=== PATIENT | female | born 1955 | race Caucasian/White ===

== ENCOUNTER 2017-06-07 13:36 | Observation (INO) | payer OTHER ==
[2017-06-07] MEDS ORDERED: Sodium Chloride 0.9% 1000 ML 1,000 ML IV STA (13:43)
[2017-06-07] MEDS ORDERED: Sodium Chloride 0.9% 1000 ML 1,000 ML ONE ×2 (13:46→14:04)
--- NOTE | 2017-06-07 13:51 | ERPHSYRPT ---
- History of Present Illness Time Seen by Provider: 06/07/17 13:44 Source: patient, EMS Exam Limitations: no limitations Physician History: 61-year-old white female with history of epilepsy, hypothyroidism, ulcers, chronic back problems Patient arrives with complaint of taking a handful of Klonopin tablets at around 11:00 she states that she was upset because she could not get any more back pain pills from her physician. Patient apparently had a bottle with 90 Klonopin tablets in them which was filled on May 24, 2017 Which was written to be taken 3 per day Patient denie taking s any other medications. Past medical history includes epilepsy, hypothyroidism, ulcers, back problems Past surgical history includes , hysterectomy, multiple back surgeries Social history patient denies tobacco alcohol or tobacco use Patient denies history of depression or history of suicide attempts in the past Timing/Duration: today Severity: moderate Modifying Factors: Improves With: medication (intentional overdose of Klonopin) Associated Symptoms: other (patient upset because she could not back pain medicine), No nausea, No vomiting, No abdominal pain, No shortness of breath, No heartburn, No diaphoresis, No cough, No chills, No chest pain, No fever, No headaches, No loss of appetite, No malaise, No rash, No syncope, No seizure, No weakness Allergies/Adverse Reactions: Iodinated Contrast- Oral and IV Dye [IV Dye, Iodine Containing Contrast ] Allergy (Severe, Verified 06/07/17 14:23) Hives Sulfa (Sulfonamide Antibiotics) [Sulfa(Sulfonamide Antibiotics)] Allergy (Mild, Verified 06/07/17 14:23) Rash codeine Allergy (Verified 06/07/17 14:23) paroxetine HCl [From Paxil] Allergy (Verified 06/07/17 14:23) Hives Home Medications: Amitriptyline HCl 10 mg [Elavil 10 mg] 50 mg PO TID 02/20/14 [History] Clonazepam 0.5 mg [Klonopin 0.5 MG] 1 mg PO TID 02/20/14 [History] Levothyroxine Sodium 25 Mcg [Synthroid 25 Mcg] 50 mcg PO DAILY 02/20/14 [ History] Phenytoin Sod Extended 30 mg [Dilantin 30 MG] 200 mg PO BID 02/20/14 [ History] Aspirin [Jay Aspirin] 81 mg PO DAILY 06/07/17 [History] Fluoxetine HCl 20 mg [Prozac 20 MG] 20 mg PO DAILY 06/07/17 [History] Lamotrigine [Lamictal] 100 mg PO BID 06/07/17 [History] Metoprolol Succinate 25 mg Xl* [Toprol-Xl 25MG Tablets] 25 mg PO DAILY [History] Hx Tetanus, Diphtheria Vaccination/Date Given: Yes Hx Influenza Vaccination/Date Given: No Hx Pneumococcal Vaccination/Date Given: No - Review of Systems Constitutional: No Fever, No Chills Eyes: No Symptoms Ears, Nose, & Throat: No Symptoms Respiratory: No Cough, No Dyspnea Cardiac: No Chest Pain, No Edema, No Syncope Abdominal/Gastrointestinal: No Abdominal Pain, No Nausea, No Vomiting, No Diarrhea Genitourinary Symptoms: No Dysuria Musculoskeletal: Back Pain (chronic back pain), No Neck Pain Skin: No Rash Neurological: No Dizziness, No Focal Weakness, No Sensory Changes Psychological: Drug Abuse (intentional overdose of Klonopin), Suicidal Ideations , No Alcohol Abuse, No Anxiety, No Depression, No Homicidal Ideations, No Emotional Lability, No Hallucinations, No Memory Loss, No Mood Changes Endocrine: No Symptoms All Other Systems: Reviewed and Negative - Past Medical History Pertinent Past Medical History: Yes Neurological History: Epilepsy ENT History: No Pertinent History Cardiac History: No Pertinent History Respiratory History: No Pertinent History Endocrine Medical History: Hypothyroidism Musculoskeletal History: Other GI Medical History: Ulcer History: No Pertinent History Psycho-Social History: No Pertinent History Female Reproductive Disorders: No Pertinent History Other Medical History: back problems - Past Surgical History Past Surgical History: Yes Neuro Surgical History: No Pertinent History Cardiac: No Pertinent History Respiratory: No Pertinent History Gastrointestinal: No Pertinent History Genitourinary: No Pertinent History Musculoskeletal: Orthopedic Surgery Female Surgical History: Section, Hysterectomy Other Surgical History: MULTIPLE BACK SURGERIES, x2 - Social History Smoking Status: Never smoker Exposure to second hand smoke: Yes Drug Use: none Patient Lives Alone: No - Nursing Vital Signs Nursing Vital Signs: Initial Vital Signs Temperature 97.4 F 06/07/17 13:37 Pulse Rate 74 06/07/17 13:37 Respiratory Rate 20 06/07/17 13:37 Blood Pressure 170/62 06/07/17 13:37 O2 Sat by Pulse Oximetry 65 L 06/07/17 13:37 Pain Scale Pain Intensity 9 - Physical Exam General Appearance: other (well-developed obese white female tearfull) Eye Exam: PERRL/EOMI, eyes nml inspection Ears, Nose, Throat Exam: normal ENT inspection, TMs normal, pharynx normal, moist mucous membranes Neck Exam: normal inspection, non-tender, supple, full range of motion Respiratory Exam: normal breath sounds, lungs clear, No respiratory distress Cardiovascular Exam: regular rate/rhythm, normal heart sounds, normal peripheral pulses Gastrointestinal/Abdomen Exam: soft, normal bowel sounds, No tenderness, No mass Back Exam: normal inspection, normal range of motion, No CVA tenderness, No vertebral tenderness Extremity Exam: normal inspection, normal range of motion, pelvis stable Neurologic Exam: alert, oriented x 3, cooperative, normal mood/affect, nml cerebellar function, nml station & gait, sensation nml, No motor deficits Skin Exam: normal color, warm, dry, No rash Lymphatic Exam: No adenopathy SpO2 Interpretation: normal (94% ra) Oxygen Delivery: Room Air - Course Nursing assessment & vital signs reviewed: Yes EKG Interpreted by Me: RATE (69 bpm), Sinus Rhythm, NORMAL AXIS, Other (EKG: Normal sinus rhythm, 69 bpm, normal axis, no acute ST or T wave changes, essentially normal EKG) Ordered Tests: Active Orders 24 hr Category Date Time Status EKG-ER Only STAT Care 06/07/17 13:43 Active IV Insertion STAT Care 06/07/17 13:43 Active Pulse Oximetry (ED) STAT Care 06/07/17 13:43 Active ACETAMINOPHEN Stat Lab 06/07/17 13:50 Completed CBC W DIFF Stat Lab 06/07/17 13:50 Completed CMP Stat Lab 06/07/17 13:50 Completed ETHYL ALCOHOL Stat Lab 06/07/17 13:50 Completed SALICYLATE Stat Lab 06/07/17 13:50 Completed UA W/ MICROSCOPIC Stat Lab 06/07/17 14:15 Completed Urine Triage Profile Stat Lab 06/07/17 14:15 Completed Medication Summary Discontinued Medications Generic Name Dose Route Start Last Admin Trade Name Freq PRN Reason Stop Dose Admin Sodium Chloride 1,000 mls @ 999 mls/hr 06/07/17 13:43 06/07/17 13:47 Sodium Chloride 0.9% 1000 Ml IV 06/07/17 14:43 999 mls/hr .Q1H1M STA Administration Sodium Chloride Confirm 06/07/17 13:46 Sodium Chloride 0.9% 1000 Ml Administered 06/07/17 13:47 Dose 1,000 mls @ ud .ROUTE .STK-MED ONE Sodium Chloride Confirm 06/07/17 14:04 Sodium Chloride 0.9% 1000 Ml Administered 06/07/17 14:05 Dose 1,000 mls @ ud .ROUTE .STK-MED ONE Lab/Rad Data: Laboratory Result Diagrams 06/07/17 13:50 06/07/17 13:50 Laboratory Results 06/07/17 06/07/17 06/07/17 Range/Units 14:15 14:15 13:50 WBC (4.0-10.5) K/mm3 RBC (4.1-5.4) M/mm3 Hgb (12.0-16.0) gm/dl Hct (35-47) % MCV (78-100) fl MCH (26-32) pg MCHC (32-36) g/dl RDW (11.5-14.0) % Plt Count (150-450) K/mm3 MPV (6-9.5) fl Gran % (36.0-66.0) % Lymphocytes % (24.0-44.0) % Monocytes % (0.0-12.0) % Eosinophils % (0.00-5.0) % Basophils % (0.0-0.4) % Basophils # (0-0.4) Sodium 137 (136-145) mEq/L Potassium 3.6 (3.5-5.1) mEq/L Chloride 103 (98-107) mEq/L Carbon Dioxide 23.8 (21-32) mEq/L Anion Gap 14.0 (5-15) MEQ/L BUN 10 (9-20) mg/dL Creatinine 0.98 (0.55-1.30) mg/dl Estimated GFR > 60 ML/MIN Glucose 101 (70-110) MG/DL Calcium 8.8 (8.5-10.1) mg/dL Total Bilirubin 0.20 (0.2-1.0) mg/dL AST 15 (15-37) U/L ALT 7 L (12-78) U/L Alkaline Phosphatase 130 H (46-116) U/L Serum Total Protein 7.7 (6.4-8.2) gm/dL Albumin 3.7 (3.4-5.0) g/dL Ur Collection Type CATH Urine Color YELLOW (YELLOW) Urine Appearance CLEAR (CLEAR) Urine pH 7.0 (5-6) Ur Specific [place] 1.005 (1.005-1.025) Urine Protein NEGATIVE (Negative) Urine Ketones NEGATIVE (NEGATIVE) Urine Blood 5-10 (0-5) Lyle/ul Urine Nitrite NEGATIVE (NEGATIVE) Urine Bilirubin NEGATIVE (NEGATIVE) Urine Urobilinogen NORMAL (0-1) mg/dL Ur Leukocyte Esterase NEGATIVE (NEGATIVE) Ur Epithelial Cells FEW (FEW) /HPF Urine Bacteria FEW (NEGATIVE) /HPF Urine Culture Reflexed NO (NO) Urine Glucose NEGATIVE (NEGATIVE) mg/dL Salicylates < 2.8 L (2.8-20.0) mg/dl Urine Opiates Level NEG. (NEGATIVE) Ur Methadone NEG. (NEGATIVE) Acetaminophen < 2.0 L (10-30) ug/ml Urine Barbiturates NEG. (NEGATIVE) Ur Phencyclidine (PCP) NEG. (NEGATIVE) Urine Amphetamine NEG. (NEGATIVE) U Benzodiazepine Level NEG. (NEGATIVE) Urine Cocaine NEG. (NEGATIVE) Urine Marijuana (THC) NEG. (NEGATIVE) Ethyl Alcohol < 0.010 (0.00-0.01) % Specimen Received 1415 06/07/17 06/07/17 Range/Units 13:50 WBC 8.1 (4.0-10.5) K/mm3 RBC 4.67 (4.1-5.4) M/mm3 Hgb 12.0 (12.0-16.0) gm/dl Hct 37.2 (35-47) % MCV 79.7 (78-100) fl MCH 25.7 L (26-32) pg MCHC 32.3 (32-36) g/dl RDW 14.5 H (11.5-14.0) % Plt Count 248 (150-450) K/mm3 MPV 10.3 H (6-9.5) fl Gran % 67.1 H (36.0-66.0) % Lymphocytes % 21.6 L (24.0-44.0) % Monocytes % 7.7 (0.0-12.0) % Eosinophils % 3.1 (0.00-5.0) % Basophils % 0.5 (0.0-0.4) % Basophils # 0.04 (0-0.4) Sodium (136-145) mEq/L Potassium (3.5-5.1) mEq/L Chloride (98-107) mEq/L Carbon Dioxide (21-32) mEq/L Anion Gap (5-15) MEQ/L BUN (9-20) mg/dL Creatinine (0.55-1.30) mg/dl Estimated GFR ML/MIN Glucose (70-110) MG/DL Calcium (8.5-10.1) mg/dL Total Bilirubin (0.2-1.0) mg/dL AST (15-37) U/L ALT (12-78) U/L Alkaline Phosphatase (46-116) U/L Serum Total Protein (6.4-8.2) gm/dL Albumin (3.4-5.0) g/dL Ur Collection Type Urine Color (YELLOW) Urine Appearance (CLEAR) Urine pH (5-6) Ur Specific [place] (1.005-1.025) Urine Protein (Negative) Urine Ketones (NEGATIVE) Urine Blood (0-5) Lyle/ul Urine Nitrite (NEGATIVE) Urine Bilirubin (NEGATIVE) Urine Urobilinogen (0-1) mg/dL Ur Leukocyte Esterase (NEGATIVE) Ur Epithelial Cells (FEW) /HPF Urine Bacteria (NEGATIVE) /HPF Urine Culture Reflexed (NO) Urine Glucose (NEGATIVE) mg/dL Salicylates (2.8-20.0) mg/dl Urine Opiates Level (NEGATIVE) Ur Methadone (NEGATIVE) Acetaminophen (10-30) ug/ml Urine Barbiturates (NEGATIVE) Ur Phencyclidine (PCP) (NEGATIVE) Urine Amphetamine (NEGATIVE) U Benzodiazepine Level (NEGATIVE) Urine Cocaine (NEGATIVE) Urine Marijuana (THC) (NEGATIVE) Ethyl Alcohol (0.00-0.01) % Specimen Received - Progress Progress: improved Progress Note: 06/07/17 13:51 61-year-old white female arrives with complaint that she had ingested a handful of 1 mg Klonopin tablets at approximately 11:00. Patient states she took these because she found out she could not get any more back pain medicines. Patient arrives she is alert she is tearful cooperative to examination. 06/07/17 15:38 Patient is stable at this time Currently patient's urine drug screen is negative EKG normal sinus rhythm 69 bpm normal axis no acute ST or T wave changes vitals are stable patient is asking for pain medication I'm reluctant to give her narcotics at this time . I have discussed case with Dr. Mariano will place patient on telemetry suicide precautions continue IV fluids recheck acetaminophen level IV hours from last draw And order a psych consult. 06/07/17 15:41 - Departure Time of Disposition: 15:42 Departure Disposition: Observation Clinical Impression: Suicidal ideation Deliberate medication overdose Qualifiers: Encounter type: initial encounter Qualified Code(s): T50.902A - Poisoning by unspecified drugs, medicaments and biological substances, intentional self-harm , initial encounter Condition: Fair Critical Care Time: No Referrals: FAUZIA WRAY [Primary Care Provider] -
[2017-06-07 14:02] LABS: BASOPHIL % 0.5 % (0.0-0.4); Eosinophil % 3.1 % (0.00-5.0); Granulocytes % 67.1 % (36.0-66.0); Lymphocytes % 21.6 % (24.0-44.0); Mean Cell Volume 79.7 fl (78-100); Mean Corpuscular Hemoglobin 25.7 pg (26-32); Mean Platelet Volume 10.3 fl (6-9.5); Monocytes % 7.7 % (0.0-12.0); Platelet Count 248 K/mm3 (150-450); Red Blood Count 4.67 M/mm3 (4.1-5.4); Red Cell Distribution Width 14.5 % (11.5-14.0); White Blood Count 8.1 K/mm3 (4.0-10.5)
[2017-06-07 14:20] LABS: Bilirubin NEGATIVE (NEGATIVE); COMPLETE URINE MICROSCOPIC? YES; Collection Type CATH; Glucose NEGATIVE (NEGATIVE); Leukocyte Esterase NEGATIVE (NEGATIVE)
[2017-06-07 14:30] LABS: ADD URINE CULTURE? NO (NO); Bacteria FEW /HPF (NEGATIVE); Epithelial Cells FEW /HPF (FEW)
[2017-06-07 14:42] LABS: ALBUMIN 3.7 g/dL (3.4-5.0); ALKALINE PHOSPHATASE 130 U/L (46-116); BLOOD UREA NITROGEN 10 mg/dL (9-20); CHLORIDE 103 mEq/L (98-107); Carbon Dioxide 23.8 mEq/L (21-32); ETHYL ALCOHOL < 0.010 % (0.00-0.01); Glucose 101 MG/DL (70-110); Potassium 3.6 mEq/L (3.5-5.1); SGOT/AST 15 U/L (15-37); SGPT/ALT 7 U/L (12-78); SODIUM 137 mEq/L (136-145); Total Protein 7.7 gm/dL (6.4-8.2)
[2017-06-07 14:49] LABS: ACETAMINOPHEN < 2.0 ug/ml (10-30)
[2017-06-07] MEDS: Sodium Chloride 0.9% 1000 ML 1,000 ML IV SCH (15:51)
[2017-06-07] MEDS ORDERED: Sodium Chloride 0.9% 1000 ML 1,000 ML IV SCH (16:32)
[2017-06-07] MEDS: TORAdol 30 mg Injection IV PRN (20:29)
[2017-06-07] MEDS ORDERED: DILANTIN 30 MG PO SCH (22:00)
[2017-06-07] MEDS ORDERED: ELAVIL 10 MG PO SCH (22:00)
[2017-06-07] MEDS: Dilantin 100 MG PO SCH (22:24)
[2017-06-07] MEDS: lamICTAL 100MG TABLET PO SCH (22:24)
[2017-06-08] MEDS: Sodium Chloride 0.9% 1000 ML 1,000 ML IV SCH ×2 (02:17→12:19)
[2017-06-08 06:58] LABS: ALKALINE PHOSPHATASE 115 U/L (46-116); ANION GAP 13.8 MEQ/L (5-15); BLOOD UREA NITROGEN 9 mg/dL (9-20); CHLORIDE 108 mEq/L (98-107); Carbon Dioxide 23.2 mEq/L (21-32); Glucose 97 MG/DL (70-110); Potassium 3.4 mEq/L (3.5-5.1); SGOT/AST 12 U/L (15-37); SGPT/ALT 15 U/L (12-78); SODIUM 142 mEq/L (136-145); Total Protein 6.7 gm/dL (6.4-8.2)
[2017-06-08] MEDS: TORAdol 30 mg Injection IV PRN (08:05)
[2017-06-08] MEDS: Dilantin 100 MG PO SCH (08:58)
[2017-06-08] MEDS: lamICTAL 100MG TABLET PO SCH (08:59)
[2017-06-08] MEDS ORDERED: ECOTRIN 81 MG PO SCH (10:00)
[2017-06-08] MEDS ORDERED: SYNTHROID 50 MCG PO SCH (10:00)
[2017-06-08] MEDS ORDERED: SYNTHROID 25 MCG PO SCH (10:00)
[2017-06-08] MEDS ORDERED: Toprol-Xl 25MG Tablets PO SCH (10:00)
[2017-06-08] MEDS ORDERED: TORAdol 30 mg Injection IV ONE (12:32)
[2017-06-08] MEDS ORDERED: Klor Con 10 MEQ PO ONE (15:09)
[2017-06-08 16:53] VITALS: BP 148/76; PULSE 66; O2SAT 92
--- NOTE | 2017-06-08 19:53 | XRAY ---
Indication: Cough 2 weeks. Comparison: March 14, 2015. PA/lateral chest remains clear again with a few incidental calcified granulomas. Heart is not enlarged. Bony thorax intact. Impression: Stable nonacute chest. Again evidence for old granulomatous disease. Comment: Preliminary interpretation was made by [facility]. No discrepancy.
--- NOTE | 2017-06-08 19:57 | XRAY ---
Indication: Low back pain radiating down right leg. Comparison: May 08, 2016. 5 views of the lumbar spine again demonstrates 5 lumbar vertebral segments in normal alignment with stable L4-S1 degenerative disc space narrowing, bilateral L4-S1 degenerative facet arthropathy, calcified splenic granulomas, and numerous epigastric surgical clips. Again noted fracture, subluxation, or pars intra-articularis defect. Impression: Stable nonacute lumbar spine with chronic features. Comment: Preliminary interpretation was made by [facility]. No discrepancy.
--- NOTE | 2017-06-08 19:57 | XRAY ---
Indication: Chronic low back pain radiating down right leg. Comparison: None 3 views of the sacrum/coccyx demonstrates lower lumbar degenerative changes reported separately. No other bony, articular, or soft tissue abnormalities. Comment: Preliminary interpretation was made by [facility]. No discrepancy.
--- NOTE | 2017-06-10 11:15 | HP ---
HISTORY OF PRESENT ILLNESS: Velma Andre is a 61 year old woman with past medical history of chronic back pain, epilepsy and hypothyroidism. She presented to the emergency room today after reportedly taking a handful of Klonopin tablets. The patient stated that she was upset because she could not get any more pain pills for her back pain from her pain specialist. Upon initial evaluation in the emergency room she was noted to be alert, oriented x3. Initial vitals in the emergency room showed blood pressure 178/62, heart rate 74, respiratory rate 20 and temperature 97.4F. After initial work up and management she was admitted to the medical floor for further monitoring and management. At the time of evaluation this evening the patient was alert, awake and comfortable. She stated she is upset with nurse from her pain specialist office. She states she was taking her medications as directed. She complains of back pain. PAST MEDICAL HISTORY: As noted above. PAST SURGICAL HISTORY: Status post multiple back surgeries, section and hysterectomy. ALLERGIES: IODINATED CONTRAST MEDIA, SULFA, CODEINE, PAROXETINE. MEDICATIONS: Current medications were reviewed. On review of the patient's INSPECT shows that she did receive a month long prescription for Nucynta 200 mg tablet on 05/08/[address] Rodney's office. SOCIAL HISTORY: The patient lives at home. She denies history of smoking, alcohol abuse or illicit drug use. REVIEW OF SYSTEMS: Denies headache or dizziness. Denies chest pain, shortness of breath or cough. Denies abdominal pain, nausea or vomiting. Denies constipation or diarrhea. Denies urinary complaints. Complains of back pain. She states her back pain radiates to her legs and is chronic in nature. As per patient she underwent MRI about a year back. Her pain had been controlled on Nucynta. PHYSICAL EXAMINATION: A middle aged woman lying comfortably in bed, not in acute distress but appears somewhat agitated. VITAL SIGNS: Blood pressure 170/62, heart rate 74, respiratory rate 20, temperature 97.4F. HEENT: No pallor or icterus is noted. NECK: No JVD is present. CVS: S1, S2 present. RESPIRATORY: Breath sounds are bilaterally diminished and clear to auscultation. ABDOMEN: Obese, soft, nontender. NEURO: She is alert, oriented x3. Evaluation of motor strength in bilateral upper and lower extremities reveals grossly intact motor strength. EXTREMITIES: No edema on bilateral lower extremities. LABORATORY DATA AND TESTS: Labs on admission showed unremarkable CBC. CMP unremarkable except alkaline phosphatase of 130. UA showed 5 to 10 blood, few epithelial cells. Salicylates less than 2.8. Urine tox negative. Serum acetaminophen level was less than 2. Ethanol alcohol level less than 0.010. EKG showed sinus rhythm at 69 beats/minute. No acute ST-T changes, essentially normal per emergency room records. ASSESSMENT: A 61 year old woman with impression: 1) Status post reported Klonopin overdose. 2) Chronic pain syndrome, lower back. 3) Anxiety. 4) Hypothyroidism. 5) History of epilepsy. 6) Ulcers. PLAN: The patient is admitted for further monitoring and management. As noted earlier the patient states she was extremely upset with nurse from her pain doctor's office as she just found out that she could not get anymore back pain medicine. The patient stated that she was taking her medications as directed. The patient stated that she only took the Klonopin because of finding out that she will not get any more pain medication. As noted above, the patient urine tox was essentially negative. Psychiatry consultation has been requested. The patient was started on IV Toradol. Dr. Rodney's office was contacted and reportedly the patient had altered the date on her prescription due to which she was terminated. Plan of care was discussed with the patient. She seems to be in understanding and agreement. Discussed with patient's nurse.
--- NOTE | 2017-06-11 14:22 | DS ---
DISCHARGE DIAGNOSES: 1) STATUS POST REPORTED KLONOPIN OVERDOSE. 2) SUICIDAL IDEATION, NOW RESOLVED. 3) CHRONIC BACK PAIN. 4) HYPERTENSION. 5) EPILEPSY. 6) ANXIETY. [place]ANT[place] CASE[place] [facility] HOSPITAL COURSE: Velma Andre is a 61 year-old woman with chronic back pain, prior history of multiple back surgeries, hypertension, epilepsy and anxiety. She presented to the emergency room yesterday after reportedly consuming a handful of Klonopin pills after finding out that her pain doctor would not write her anymore pain medications for her back pain. Upon arrival in the emergency room the patient was noted to be alert and cooperative. Initial lab work up showed unremarkable CBC. Urine tox was negative. Acetaminophen level was less than 2. Alcohol level was less than 0.010. CMP was unremarkable except alkaline phosphatase of 130. UA showed 5 to 10 blood otherwise unremarkable. Salicylate level was less than 2.8. The patient was treated with IV fluids and was admitted to medical floor for further monitoring and management. Since admission she was continued on PRN Toradol. Earlier today she was evaluated [place] [facility] evaluation. At the time the patient had stated that she did not intend to be suicidal and will not do that in the future. Eventually as per reported to me by patient's nurse, they have cleared the patient. The patient was not felt to be suicidal or homicidal and they have cleared the patient for discharge with family supervision. At the time of this evaluation the patient is alert, awake and comfortable. Complains of low back pain with radiation to right lower extremity (chronic). Complains of dry cough. Appears comfortable. Denies any suicidal ideation. Denies homicidal ideation. She states she is wishing to go home, appears comfortable. PHYSICAL EXAMINATION: VITAL SIGNS: Blood pressure 129/72, heart rate 71, respiratory rate 16, temperature 98F. Oxygen saturation 95% on room air. HEENT: No pallor or icterus is noted. NECK: No JVD is present. CVS: S1, S2 present. RESPIRATORY: Breath sounds are bilaterally diminished and clear to auscultation. ABDOMEN: Obese, soft, nontender. NEURO: She is alert, oriented x3. EXTREMITIES: No edema on bilateral lower extremities. LABORATORY DATA AND TESTS: Labs from today show CMP with potassium of 3.4, chloride 108, otherwise unremarkable. Medications were reviewed. ASSESSMENT: As outlined in discharge diagnosis. PLAN: The patient with history of chronic severe back pain, multiple back surgeries. She has been on Nucynta for over a year from her pain provider. The patient was admitted yesterday after she had reportedly consumed Klonopin after pain medication provider was not going to write her prescription anymore. During her course the patient remained hemodynamically stable. She was treated with PRN Toradol as needed with some improvement of her pain. She otherwise remained clinically stable. In view of her persistent back pain we obtained lumbosacral spine x-ray as well obtained chest x-ray for her dry cough. As those did not reveal any acute changes, will ambulate the patient. Also noted earlier the patient was evaluated by psychiatry and they have cleared the patient for discharge. Again, I specifically asked the patient at this time and denies any suicidal or homicidal ideation. She states that she is wishing to spend time with her grandchildren and spend time with her family and looks forward to spending time with them. I have advised the patient that I will write her a prescription for the next five days and she must follow up with primary care physician on Saturday (06/10/2017) for continuation of further prescriptions regarding her pain medication as well as anxiolytic medication. I have clearly explained it to patient that although today's prescription is being written as one-time exception for her, I will not continue to write those in the future and she must follow up with her primary care physician and place herself under the care of another pain medication provider for her complex pain management issues. I have again instructed the patient take her prescription strictly as directed. I have discussed with her that consuming opioid medications at doses other than prescribed may lead to increased risk of cardiorespiratory depression and possible . The patient verbalized understanding of the discussion and agrees to comply with follow up with primary care physician and that she needs to place herself under the care of another pain management provider. Also as noted earlier, psychiatry has reminded the patient to have family supervision and her son and [id number] will be with the patient. The patient is going to follow up with psychiatry on 06/10/2017. Again it was stressed with the patient that she must follow up with primary care physician, Dr. Jayesh Fishman, for her additional prescriptions needed until she gets to see another pain management provider and for continuation of her anxiolytic prescription. The patient is advised to return to the Emergency [facility] if any new signs and symptoms or reappearance of previous signs and symptoms are noted. The patient's clinical condition, work-up results and plan of management and plan after discharge as outlined were discussed at great length with patient. She seems to be in understanding and agreement. She agrees to comply with the above recommendations as noted. The plan was discussed with the patient's nurse, Xiomara and charge nurse, Kim, who were present at the time of evaluation of the patient today. Please refer to the patient's chart, labs, diagnostic work up results and consult notes for details. Please refer to discharge medication list from 06/08/2017 for details of medications on discharge. ADDENUM: The patient's INSPECT was verified from our office and the patient had filled her prescription for Nucynta 200 mg a month long prescription on 05/08/2017. The patient has been on chronic management with Nucynta. Given that I have written for patient chronic management with Nucynta. I attempted to contact the patient pharmacist, Michelle Jones, however both the pharmacies are closed today. Given the patient's medication has been verified from INSPECT, and the patient has been on chronic management with Nucynta for about a year, I have written the patient a one-time prescription of Nucynta extended release 200 mg total number of 14 tablets. Again the patient was strictly instructed to use those as prescribed and follow up with her primary care physician for further management and place herself under the care of a pain management provider. The plan was discussed with the patient. She is understanding and agrees to comply. Discussed with patient's nurse.
== END 2017-06-08 18:00 | disposition home or self-care (01) ==
LOC: ED 13:36 → MED SURG 16:15
PROVIDERS: ADMIT General Practice; ATTEND General Practice
DX: T42.4X2A Poisoning by benzodiazepines, intentional self-harm, initial encounter (principal); G40.909 Epilepsy, unspecified, not intractable, without status epilepticus; E03.9 Hypothyroidism, unspecified; G89.4 Chronic pain syndrome; F45.42 Pain disorder with related psychological factors; D41.9 Neoplasm of uncertain behavior of unspecified urinary organ; K28.9 Gastrojejunal ulcer, unspecified as acute or chronic, without hemorrhage or perforation; Z79.899 Other long term (current) drug therapy
CPT/HCPCS: 36000; 36415; 71020; 72110; 72220; 80053; 80307; 81000; 85025; 93005; 93268; 96360; 96361; 96374; 99285; G0378; G0481; J1885; A9270-GY

== ENCOUNTER 2017-06-24 19:10 | Emergency (ER) | payer OTHER ==
[2017-06-24] MEDS ORDERED: MORPHINE SULFATE 10 MG/ML IM ONE (19:28)
[2017-06-24] MEDS ORDERED: VALIUM 10 MG/2 ML SYRINGE IM ONE (19:28)
--- NOTE | 2017-06-24 19:37 | ERPHSYRPT ---
- History of Present Illness Time Seen by Provider: 06/24/17 19:26 Source: patient Exam Limitations: no limitations Patient Subjective Stated Complaint: Pt reports tripped going up the stairs yesterday and since then experiencing lower back pain that radiates down into right buttock, leg and foot. Reports the right foot feels numb. Has hx of 4 back surgeries and sciatica. Triage Nursing Assessment: Pt alert, oriented, answers all questions appropriately. Skin pink, warm, dry. Resps non-labored. Pt ambulatory to treatment room, steady gait noted. Back with skin discoloration she reports is from repeated heating pad use. + straight leg test. + pedal pulses bilat. Physician History: Pt states, she was carrying [employer] boxes yesterday, tripped and twisted her lower back. She had low back surgery x4, underwent MRI evaluation 2 weeks ago, showing severe arthritis. She denies fall, direct trauma, no loss of bladder or bowel control, fever, nausea, vomiting or abdominal pain. She states her pain radiates to her right buttock, causing numbness of her right foot. She denies other complaints, or issues. She took 4 Tylenols earlier today. She states, she has been taking Nucynta 200mg BId for a long time, but she ran out of it now, since her Pain management doctor fired her due to a misunderstanding , which she intends to clarify. Timing/Duration: yesterday Method of Injury: lifting Quality: sharp Back Pain Location: lumbar spine Back Pain Radiation: buttocks Severity of Pain-Max: severe Severity of Pain-Current: severe Modifying Factors: Improves With: immobilization, movement Associated Symptoms: denies symptoms Previous symptoms: same symptoms as today Allergies/Adverse Reactions: Iodinated Contrast- Oral and IV Dye [IV Dye, Iodine Containing Contrast ] Allergy (Severe, Verified 06/24/17 19:28) Hives Sulfa (Sulfonamide Antibiotics) [Sulfa(Sulfonamide Antibiotics)] Allergy (Mild, Verified 06/24/17 19:28) Rash codeine Allergy (Verified 06/24/17 19:28) paroxetine HCl [From Paxil] Allergy (Verified 06/24/17 19:28) Hives Home Medications: Amitriptyline HCl 10 mg [Elavil 10 mg] 50 mg PO HS 02/20/14 [History] Clonazepam 0.5 mg [Klonopin 0.5 MG] 1 mg PO TID 02/20/14 [History] Levothyroxine Sodium 25 Mcg [Synthroid 25 Mcg] 50 mcg PO DAILY 02/20/14 [ History] Phenytoin Sod Extended 30 mg [Dilantin 30 MG] 200 mg PO BID 02/20/14 [ History] Aspirin [[place] Aspirin] 81 mg PO DAILY 06/07/17 [History] Fluoxetine HCl 20 mg [Prozac 20 MG] 20 mg PO DAILY 06/07/17 [History] Lamotrigine [Lamictal] 200 mg PO HS 06/07/17 [History] Metoprolol Succinate 25 mg Xl* [Toprol-Xl 25MG Tablets] 25 mg PO DAILY [History] Tapentadol HCl [Nucynta ER] 200 mg PO HS 06/24/17 [History] Hx Tetanus, Diphtheria Vaccination/Date Given: Yes Hx Influenza Vaccination/Date Given: No Hx Pneumococcal Vaccination/Date Given: No Immunizations Up to Date: Yes - Review of Systems Constitutional: No Symptoms Musculoskeletal: Arthralgias, Back Pain All Other Systems: Reviewed and Negative - Past Medical History Pertinent Past Medical History: Yes Neurological History: Epilepsy ENT History: No Pertinent History Cardiac History: No Pertinent History Respiratory History: No Pertinent History Endocrine Medical History: Hypothyroidism Musculoskeletal History: Other GI Medical History: Ulcer History: No Pertinent History Psycho-Social History: No Pertinent History Female Reproductive Disorders: No Pertinent History Other Medical History: back problems - Past Surgical History Past Surgical History: Yes Neuro Surgical History: No Pertinent History Cardiac: No Pertinent History Respiratory: No Pertinent History Gastrointestinal: No Pertinent History Genitourinary: No Pertinent History Musculoskeletal: Orthopedic Surgery Female Surgical History: Section, Hysterectomy Other Surgical History: MULTIPLE BACK SURGERIES, x2 - Social History Smoking Status: Never smoker Exposure to second hand smoke: No Drug Use: none Patient Lives Alone: No - Female History Hx Now: No - Nursing Vital Signs Nursing Vital Signs: Initial Vital Signs Temperature 98.4 F 06/24/17 19:15 Pulse Rate 90 06/24/17 19:15 Respiratory Rate 16 06/24/17 19:15 Blood Pressure 122/89 06/24/17 19:15 O2 Sat by Pulse Oximetry 97 06/24/17 19:15 Pain Scale Pain Intensity [Posterior Back 10 ] Pain Intensity 7 - Physical Exam General Appearance: no apparent distress Ears, Nose, Throat Exam: normal ENT inspection Neck Exam: normal inspection, non-tender Respiratory Exam: normal breath sounds, lungs clear Cardiovascular Exam: regular rate/rhythm, normal heart sounds, normal peripheral pulses, No murmur Gastrointestinal Exam: soft, normal bowel sounds, No tenderness, No distention, No mass, No guarding Back Exam: normal inspection, decreased range of motion, muscle spasm, other ( right sciatic atenderness, and paralumbar muscle spasms. Straight leg raising positive on right at 20 dgrs, DTR: 3+, equal bilaterally), No CVA tenderness, No vertebral tenderness, No rash Extremity Exam: normal inspection, pelvis stable, No calf tenderness, No deformities, No parasthesia, No shaniqua's sign, No pedal edema Neurologic Exam: alert, oriented x 3, cooperative, normal mood/affect, No motor deficits Skin Exam: normal color, warm, dry, No rash Lymphatic Exam: No adenopathy SpO2 Interpretation: normal SpO2: 97 Oxygen Delivery: Room Air - Radiology Exams L-Spine X-ray Interpretation: Interpreted by me, Other (severe DJD, L4-5 disc space disappeared.) Ordered Tests: Active Orders 24 hr Category Date Time Status Clean Catch Urine Specimen STAT Care 06/24/17 19:28 Active LUMBAR LIMITED (2 OR 3 VIEWS) Stat Exams 06/24/17 19:27 Taken UA W/RFX UR CULTURE Stat Lab 06/24/17 19:37 Completed Urine Triage Profile Stat Lab 06/24/17 19:37 Completed Medication Summary Discontinued Medications Generic Name Dose Route Start Last Admin Trade Name Freq PRN Reason Stop Dose Admin Diazepam 5 mg 06/24/17 19:28 06/24/17 20:19 Valium 10 Mg/2 Ml Syringe IM 06/24/17 19:29 5 mg STAT ONE Administration Morphine Sulfate 6 mg 06/24/17 19:28 06/24/17 20:06 Morphine Sulfate 10 Mg/Ml IM 06/24/17 19:29 6 mg STAT ONE Administration Morphine Sulfate Confirm 06/24/17 20:01 Morphine Sulfate 10 Mg/Ml Administered 06/24/17 20:02 Dose 10 mg .ROUTE .STK-MED ONE Lab/Rad Data: Laboratory Results 06/24/17 06/24/17 Range/Units 19:37 19:37 Ur Collection Type CLEAN CATCH Urine Color YELLOW (YELLOW) Urine Appearance CLEAR (CLEAR) Urine pH 6.0 (5-6) Ur Specific [place] 1.010 (1.005-1.025) Urine Protein NEGATIVE (Negative) Urine Ketones NEGATIVE (NEGATIVE) Urine Blood NEGATIVE (0-5) Lyle/ul Urine Nitrite NEGATIVE (NEGATIVE) Urine Bilirubin NEGATIVE (NEGATIVE) Urine Urobilinogen NORMAL (0-1) mg/dL Ur Leukocyte Esterase NEGATIVE (NEGATIVE) Urine Culture Reflexed NO (NO) Urine Glucose NEGATIVE (NEGATIVE) mg/dL Urine Opiates Level NEG. (NEGATIVE) Ur Methadone NEG. (NEGATIVE) Urine Barbiturates NEG. (NEGATIVE) Ur Phencyclidine (PCP) NEG. (NEGATIVE) Urine Amphetamine NEG. (NEGATIVE) U Benzodiazepine Level NEG. (NEGATIVE) Urine Cocaine NEG. (NEGATIVE) Urine Marijuana (THC) NEG. (NEGATIVE) Specimen Received [id number] - Progress Progress: improved Progress Note: 06/24/17 21:11 Improved after im. Morphine and Valium, her leg feels better, not numb anymore, she has been stable, afebrile. I explained our results, and asked her to follow up with her PCP, and the Pain clinic. she agreed, all questions answered, she is stable to be discharged home. - Departure Time of Disposition: 21:13 Departure Disposition: Home Clinical Impression: Back pain at L4-L5 level Condition: Stable Critical Care Time: No Referrals: FAUZIA WRAY [Primary Care Provider] - Instructions: Back Pain With Sciatica Additional Instructions: Rest x 2-3 days, apply moist heat to painful area, return if severe pain, vomiting, fever> 102F or sudden leg weakness, numbness, loss of bladder, bowel control ! Follow up with PCP and Pain Management! Prescriptions: Tapentadol HCl [Nucynta ER] 200 mg PO BID 10 Days #20 tab.er.12h MDD 2
[2017-06-24 19:43] LABS: ADD URINE CULTURE? NO (NO); Bilirubin NEGATIVE (NEGATIVE); Blood NEGATIVE Ery/ul (0-5); COMPLETE URINE MICROSCOPIC? NO; Collection Type CLEAN CATCH; Glucose NEGATIVE (NEGATIVE); Leukocyte Esterase NEGATIVE (NEGATIVE)
[2017-06-24] MEDS ORDERED: MORPHINE SULFATE 10 MG/ML ONE (20:01)
[2017-06-24 21:29] VITALS: BP 145/73; PULSE 68; O2SAT 95
--- NOTE | 2017-06-25 08:57 | XRAY ---
Indication: Chronic back pain radiating down right hip. Comparison: June 08, 2017. 3 views of the lumbar spine demonstrates stable L4-S1 degenerative disc space narrowing, bilateral L4-S1 degenerative facet arthropathy, calcified splenic granulomas, and numerous epigastric surgical clips. Increasing mild scattered colonic fecal debris. No new/acute findings.
== END 2017-06-24 21:29 | disposition home or self-care (01) ==
LOC: ED 19:10
DX: M54.5 Low back pain (principal); X50.0XXA Overexertion from strenuous movement or load, initial encounter; Z79.899 Other long term (current) drug therapy
CPT/HCPCS: 72100; 80307; 81002; 96372; 99284; J2270; J3360

== ENCOUNTER 2018-07-13 15:06 | Emergency (ER) | payer OTHER ==
--- NOTE | 2018-07-13 15:49 | ERPHSYRPT ---
- History of Present Illness Time Seen by Provider: 07/13/18 15:30 Source: patient Exam Limitations: no limitations Patient Subjective Stated Complaint: left lower lung hurts with breathing and coughing since 0400 today. denies fever.. sore throat to the left side of throat. Triage Nursing Assessment: alert and oriented with c/o cough and sorethroat. congested. productive cough that she states is green. pain with movement and deep inspiration. lungs congested. Physician History: 62 y/o obese white female presents with left chest pain, productive cough, sore throat and congestion. pts states pain worse today to point she thought she was having a heart attack. pt has had flu like sx for a week prior to today. pt states she is allergic to steroids. they make her bloated. Timing/Duration: day(s) (2), worse Cough Quality/Degree: moderate Possible Cause: occasional episodes Modifying Factors: Improves With: coughing Associated Symptoms: chest pain/soreness (left with coughing), cough, shortness of breath (mild), sore throat Allergies/Adverse Reactions: Iodinated Contrast- Oral and IV Dye [IV Dye, Iodine Containing Contrast ] Allergy (Severe, Verified 06/24/17 19:28) Hives Sulfa (Sulfonamide Antibiotics) [Sulfa(Sulfonamide Antibiotics)] Allergy (Mild, Verified 06/24/17 19:28) Rash codeine Allergy (Verified 06/24/17 19:28) paroxetine HCl [From Paxil] Allergy (Verified 06/24/17 19:28) Hives Home Medications: Amitriptyline HCl 10 mg [Elavil 10 mg] 50 mg PO HS 02/20/14 [History] Clonazepam 0.5 mg [Klonopin 0.5 MG] 1 mg PO TID 02/20/14 [History] Levothyroxine Sodium 25 Mcg [Synthroid 25 Mcg] 50 mcg PO DAILY 02/20/14 [ History] Phenytoin Sod Extended 30 mg [Dilantin 30 MG] 200 mg PO BID 02/20/14 [ History] Aspirin [[place] Aspirin EC] 81 mg PO DAILY 06/07/17 [History] Fluoxetine HCl 20 mg [Prozac 20 MG] 20 mg PO DAILY 06/07/17 [History] Lamotrigine [Lamictal] 200 mg PO HS 06/07/17 [History] Metoprolol Succinate 25 mg Xl* [Toprol-Xl 25MG Tablets] 25 mg PO DAILY [History] Tapentadol HCl [Nucynta ER] 200 mg PO HS 06/24/17 [History] Hx Tetanus, Diphtheria Vaccination/Date Given: Yes Hx Influenza Vaccination/Date Given: No Hx Pneumococcal Vaccination/Date Given: No - Past Medical History Pertinent Past Medical History: Yes Neurological History: Epilepsy, Migraines ENT History: No Pertinent History Cardiac History: Arrhythmia Respiratory History: No Pertinent History Endocrine Medical History: Hypothyroidism Musculoskeletal History: Osteoarthritis GI Medical History: Ulcer History: No Pertinent History Psycho-Social History: No Pertinent History Female Reproductive Disorders: No Pertinent History Other Medical History: back problems - Past Surgical History Past Surgical History: Yes Neuro Surgical History: No Pertinent History Cardiac: No Pertinent History Respiratory: No Pertinent History Gastrointestinal: No Pertinent History Genitourinary: No Pertinent History Musculoskeletal: Orthopedic Surgery Female Surgical History: Section, Hysterectomy Other Surgical History: MULTIPLE BACK SURGERIES, x2 - Social History Smoking Status: Never smoker Exposure to second hand smoke: No Drug Use: none Patient Lives Alone: No - Female History Hx Now: No - Nursing Vital Signs Nursing Vital Signs: Initial Vital Signs Temperature 98.3 F 07/13/18 15:22 Pulse Rate 98 H 07/13/18 15:22 Respiratory Rate 20 07/13/18 15:22 Blood Pressure 132/86 07/13/18 15:22 O2 Sat by Pulse Oximetry 99 07/13/18 15:22 Pain Scale Pain Intensity 4 - Physical Exam General Appearance: mild distress, alert, anxiety Eye Exam: PERRL/EOMI Ears, Nose, Throat Exam: normal ENT inspection, pharynx normal, moist mucous membranes Neck Exam: normal inspection, non-tender, supple, full range of motion Respiratory Exam: normal breath sounds, chest tenderness (left with coughing), lungs clear, airway intact, No respiratory distress, No accessory muscle use, No rhonchi, No wheezing, No stridor Cardiovascular Exam: regular rate/rhythm, normal heart sounds, normal peripheral pulses Gastrointestinal/Abdomen Exam: soft, normal bowel sounds, No tenderness, No guarding, No rebound Pelvic Exam: not done Rectal Exam: not done Extremity Exam: normal inspection, normal range of motion, pelvis stable Neurologic Exam: alert, oriented x 3, 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, 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 Skin Exam: normal color, warm, dry Lymphatic Exam: No adenopathy SpO2 Interpretation: normal SpO2: 99 Oxygen Delivery: Room Air - Course Nursing assessment & vital signs reviewed: Yes EKG Interpreted by Me: RATE (95), Sinus Rhythm, NORMAL AXIS, Non-specific ST Changes, Other (no sig change when compared to ekg dated 06/07/17) Ordered Tests: Active Orders 24 hr Category Date Time 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 07/13/18 15:51 Active EKG-ER Only STAT Care 07/13/18 15:50 Active IV Insertion STAT Care 07/13/18 15:50 Active Pulse Oximetry (ED) STAT Care 07/13/18 15:50 Active CHEST 1 VIEW (PORTABLE) Stat Exams 07/13/18 15:50 Taken CBC W DIFF Stat Lab 07/13/18 16:24 Completed CMP Stat Lab 07/13/18 16:24 Completed D-DIMER QUANTITATION Stat Lab 07/13/18 16:24 Completed NT PRO BNP Stat Lab 07/13/18 16:24 Completed TROPONIN Q3H Lab 07/13/18 16:24 Completed TROPONIN Q3H Lab 07/13/18 19:00 Ordered TROPONIN Q3H Lab 07/13/18 22:00 Ordered TROPONIN Q3H Lab 07/14/18 01:00 Ordered TROPONIN Q3H Lab 07/14/18 04:00 Ordered Medication Summary Generic Name Dose Route Start Last Admin Trade Name Freq PRN Reason Stop Dose Admin Sodium Chloride 1,000 mls @ 100 mls/hr 07/13/18 16:00 07/13/18 16:19 Sodium Chloride 0.9% 1000 Ml IV 08/12/18 15:59 100 mls/hr .Q10H CARINA Administration Ceftriaxone Sodium/Dextrose 1 g in 50 mls @ 100 mls/hr 07/13/18 16:49 Rocephin 1 Gm-D5w 50 Ml Bag IV 07/13/18 17:18 STAT STA Lab/Rad Data: Laboratory Result Diagrams 07/13/18 16:24 07/13/18 16:24 Laboratory Results 07/13/18 07/13/18 07/13/18 Range/Units 16:24 16:24 16:24 WBC (4.0-10.5) K/mm3 RBC (4.1-5.4) M/mm3 Hgb (12.0-16.0) gm/dl Hct (35-47) % MCV (78-100) fl MCH (26-32) pg MCHC (32-36) g/dl RDW (11.5-14.0) % Plt Count (150-450) K/mm3 MPV (6-9.5) fl Gran % (36.0-66.0) % Eos # (Auto) (0-0.5) Absolute Lymphs (auto) (1.0-4.6) Absolute Monos (auto) (0.0-1.3) Lymphocytes % (24.0-44.0) % Monocytes % (0.0-12.0) % Eosinophils % (0.00-5.0) % Basophils % (0.0-0.4) % Absolute Granulocytes (1.4-6.9) Basophils # (0-0.4) D-Dimer 471 (215-500) ng/mL Sodium 138 (137-145) mmol/L Potassium 3.8 (3.5-5.1) mmol/L Chloride 104 (98-107) mmol/L Carbon Dioxide 22 (22-30) mmol/L Anion Gap 15.0 (5-15) MEQ/L BUN 12 (7-17) mg/dL Creatinine 0.62 (0.52-1.04) mg/dL Estimated GFR > 60.0 ML/MIN Glucose 107 H (74-106) mg/dL Calcium 8.6 (8.4-10.2) mg/dL Total Bilirubin 0.20 (0.2-1.3) mg/dL AST 17 (14-36) U/L ALT 17 (0-35) U/L Alkaline Phosphatase 102 (38-126) U/L Troponin I < 0.012 (0.000-0.034) ng/mL NT-Pro-B Natriuret Pep 396 (0-900) pg/mL Serum Total Protein 7.2 (6.3-8.2) g/dL Albumin 4.0 (3.5-5.0) g/dL 07/13/18 Range/Units 16:24 WBC 14.0 H (4.0-10.5) K/mm3 RBC 3.81 L (4.1-5.4) M/mm3 Hgb 10.4 L (12.0-16.0) gm/dl Hct 32.2 L (35-47) % MCV 84.5 (78-100) fl MCH 27.2 (26-32) pg MCHC 32.3 (32-36) g/dl RDW 13.9 (11.5-14.0) % Plt Count 257 (150-450) K/mm3 MPV 11.1 H (6-9.5) fl Gran % 76.4 H (36.0-66.0) % Eos # (Auto) 0.33 (0-0.5) Absolute Lymphs (auto) 1.93 (1.0-4.6) Absolute Monos (auto) 1.01 (0.0-1.3) Lymphocytes % 13.8 L (24.0-44.0) % Monocytes % 7.2 (0.0-12.0) % Eosinophils % 2.4 (0.00-5.0) % Basophils % 0.2 (0.0-0.4) % Absolute Granulocytes 10.72 H (1.4-6.9) Basophils # 0.03 (0-0.4) D-Dimer (215-500) ng/mL Sodium (137-145) mmol/L Potassium (3.5-5.1) mmol/L Chloride (98-107) mmol/L Carbon Dioxide (22-30) mmol/L Anion Gap (5-15) MEQ/L BUN (7-17) mg/dL Creatinine (0.52-1.04) mg/dL Estimated GFR ML/MIN Glucose (74-106) mg/dL Calcium (8.4-10.2) mg/dL Total Bilirubin (0.2-1.3) mg/dL AST (14-36) U/L ALT (0-35) U/L Alkaline Phosphatase (38-126) U/L Troponin I (0.000-0.034) ng/mL NT-Pro-B Natriuret Pep (0-900) pg/mL Serum Total Protein (6.3-8.2) g/dL Albumin (3.5-5.0) g/dL - Progress Progress: improved, re-examined Air Movement: good Progress Note: 07/13/18 16:53 cxr-increased bilat perihilar vascular markings. no definite infiltrate. pt states she can take hydrocodone without issues. Blood Culture(s) Obtained: No Antibiotics given: Yes Counseled pt/family regarding: lab results, diagnosis, need for follow-up, rad results - Departure Time of Disposition: 16:54 Departure Disposition: Home Clinical Impression: Bronchitis Condition: Stable Critical Care Time: No Referrals: KWAN GRAY MD [Primary Care Provider] - Additional Instructions: drink plenty of fluids. take medications as prescribed. follow up with primary doctor for persistent symptoms Prescriptions: Albuterol 8 gm Mdi Hfa [Ventolin Hfa MDI] 8 gm IH Q4H #1 hfa.aer.ad Azithromycin 250 mg [Zithromax 250 MG TABLET] 250 mg PO ZPACK #6 tablet Hydrocodone Bit/Acetaminophen [Hydrocodone-Acetaminophen Soln] 10 ml PO Q6H # 120 ml
[2018-07-13] MEDS ORDERED: Sodium Chloride 0.9% 1000 ML 1,000 ML IV SCH (16:00)
[2018-07-13] MEDS ORDERED: Sodium Chloride 0.9% 1000 ML 1,000 ML ONE (16:10)
[2018-07-13 16:41] LABS: BASOPHIL % 0.2 % (0.0-0.4); Basophil (Absolute #) 0.03 (0-0.4); Eosinophil % 2.4 % (0.00-5.0); Eosinophil (Absolute #) 0.33 (0-0.5); Granulocytes % 76.4 % (36.0-66.0); Hematocrit 32.2 % (35-47); Hemoglobin 10.4 gm/dl (12.0-16.0); Lymphocyte (Absolute #) 1.93 (1.0-4.6); Lymphocytes % 13.8 % (24.0-44.0); Mean Cell Volume 84.5 fl (78-100); Mean Corpuscular Hgb Concent. 32.3 g/dl (32-36); Mean Platelet Volume 11.1 fl (6-9.5); Monocyte (Absolute #) 1.01 (0.0-1.3); Monocytes % 7.2 % (0.0-12.0); Platelet Count 257 K/mm3 (150-450); Red Blood Count 3.81 M/mm3 (4.1-5.4); Red Cell Distribution Width 13.9 % (11.5-14.0)
[2018-07-13 16:42] LABS: Mean Corpuscular Hemoglobin 27.2 pg (26-32)
[2018-07-13 16:43] LABS: ALKALINE PHOSPHATASE 102 U/L (38-126); BLOOD UREA NITROGEN 12 mg/dL (7-17); CHLORIDE 104 mmol/L (98-107); Calcium 8.6 mg/dL (8.4-10.2); Carbon Dioxide 22 mmol/L (22-30); Creatinine 1 0.62 mg/dL (0.52-1.04); Glucose 107 mg/dL (74-106); NT PRO BNP 396 pg/mL (0-900); Potassium 3.8 mmol/L (3.5-5.1); SGOT/AST 17 U/L (14-36); SGPT/ALT 17 U/L (0-35); SODIUM 138 mmol/L (137-145); Total Protein 7.2 g/dL (6.3-8.2)
[2018-07-13] MEDS ORDERED: ROCEPHIN 1 Gm-D5w 50 ml Bag** 1 G/50 ML IVPB IV STA (16:49)
[2018-07-13] MEDS ORDERED: ROCEPHIN 1 Gm-D5w 50 ml Bag** 1 G/50 ML IVPB IV ONE (16:55)
[2018-07-13] MEDS ORDERED: HYDROCODONE-ACETAMIN 2.5-108/5 ML SOLUTION PO PRN (16:56)
[2018-07-13] MEDS ORDERED: HYDROCODONE-ACETAMIN 2.5-108/5 ML SOLUTION ONE (16:58)
[2018-07-13 17:02] VITALS: PULSE 92; O2SAT 98
[2018-07-13 17:31] VITALS: BP 126/107
--- NOTE | 2018-07-13 18:26 | XRAY ---
Indication: Chest pain, congestion, cough, short of breath. Comparison: June 08, 2017. Portable chest demonstrates new right upper lobe infiltrate. Remaining heart and lungs are unremarkable. Bony thorax intact again with mild degenerative changes. Comment: Right upper lobe infiltrate not reported by interpreting ER clinician. Telephone report was given to Dr. Haider at 1822 hrs. on July 13, 2018.
== END 2018-07-13 17:32 | disposition home or self-care (01) ==
LOC: ED 15:06
DX: J40 Bronchitis, not specified as acute or chronic (principal); Z79.899 Other long term (current) drug therapy
CPT/HCPCS: 36000; 36415; 71045; 80053; 83880; 84484; 85025; 85379; 93005; 93041; 96360; 96365; 99284; J0696; A9270-GY

== ENCOUNTER 2018-12-14 20:40 | Emergency (ER) | payer MEDICARE ==
[2018-12-14 21:04] VITALS: O2SAT 96
--- NOTE | 2018-12-14 21:31 | ERPHSYRPT ---
- History of Present Illness Source: patient Exam Limitations: no limitations Patient Subjective Stated Complaint: seizure Triage Nursing Assessment: Patient ambulated back to ED and transferred self to bed. Patient A+O X 3. Patient states she had a tonic clonic seizure on urinated pants. Patient states ever since she had her seizure she has had constant seizures not tonic clonic but an aura is present. Patient states she sees colors coming at her and has been confused. Physician History: Pt is a 63 y/o female that presented to the ED with complains of frequent seizures. Pt did not see a neurologist for years and does not have a PCP. Pt states, she is taking neurontin and Dilantin for her seizures, but she has no doses. Pt states, has aura before her seizures, and she is taking her medications, and then there is no seizures. Pt no, is not post ichtal, did not have any seizures, and she is A&Ox4. Timing/Duration: day(s) Severity: moderate Character of Deficits: none Deficits: no difficulties Baseline/Normal Cognition: alert oriented x 3 Current Cognition: alert oriented x 3 Baseline Gait: uses cane Associated Symptoms: seizures, other (Aura) Allergies/Adverse Reactions: Iodinated Contrast- Oral and IV Dye [IV Dye, Iodine Containing Contrast ] Allergy (Severe, Verified 12/14/18 21:04) Hives Sulfa (Sulfonamide Antibiotics) [Sulfa(Sulfonamide Antibiotics)] Allergy (Mild, Verified 12/14/18 21:04) Rash codeine Allergy (Verified 12/14/18 21:04) paroxetine HCl [From Paxil] Allergy (Verified 12/14/18 21:04) Hives Home Medications: Amitriptyline HCl 10 mg [Elavil 10 mg] 50 mg PO HS 02/20/14 [History] Clonazepam 0.5 mg [Klonopin 0.5 MG] 1 mg PO TID 02/20/14 [History] Levothyroxine Sodium 25 Mcg [Synthroid 25 Mcg] 50 mcg PO DAILY 02/20/14 [ History] Phenytoin Sod Extended 30 mg [Dilantin 30 MG] 200 mg PO BID 02/20/14 [ History] Aspirin [[place] Aspirin EC] 81 mg PO DAILY 06/07/17 [History] Fluoxetine HCl 20 mg [Prozac 20 MG] 20 mg PO DAILY 06/07/17 [History] Lamotrigine [Lamictal] 200 mg PO HS 06/07/17 [History] Metoprolol Succinate 25 mg Xl* [Toprol-Xl 25MG Tablets] 25 mg PO DAILY [History] Tapentadol HCl [Nucynta ER] 200 mg PO HS 06/24/17 [History] Hx Tetanus, Diphtheria Vaccination/Date Given: Yes Hx Influenza Vaccination/Date Given: No Hx Pneumococcal Vaccination/Date Given: No Immunizations Up to Date: Yes - Review of Systems Constitutional: Lethargy Eyes: No Symptoms, Other (aura before seizures) Ears, Nose, & Throat: No Symptoms Respiratory: No Cough, No Dyspnea Cardiac: No Chest Pain, No Edema, No Syncope Abdominal/Gastrointestinal: No Abdominal Pain, No Nausea, No Vomiting, No Diarrhea Genitourinary Symptoms: No Dysuria Musculoskeletal: No Back Pain, No Neck Pain Skin: No Rash Neurological: Seizure (increase in frequency) Psychological: No Symptoms - Past Medical History Pertinent Past Medical History: Yes Neurological History: Epilepsy, Migraines ENT History: No Pertinent History Cardiac History: Arrhythmia Respiratory History: No Pertinent History Endocrine Medical History: Hypothyroidism Musculoskeletal History: Osteoarthritis GI Medical History: Ulcer History: No Pertinent History Psycho-Social History: No Pertinent History Female Reproductive Disorders: No Pertinent History Other Medical History: back problems - Past Surgical History Past Surgical History: Yes Neuro Surgical History: No Pertinent History Cardiac: No Pertinent History Respiratory: No Pertinent History Gastrointestinal: No Pertinent History Genitourinary: No Pertinent History Musculoskeletal: Orthopedic Surgery Female Surgical History: Section, Hysterectomy Other Surgical History: MULTIPLE BACK SURGERIES, x2 - Social History Smoking Status: Never smoker Exposure to second hand smoke: No Drug Use: none Patient Lives Alone: No - Female History Hx Now: No - Nursing Vital Signs Nursing Vital Signs: Initial Vital Signs Temperature 98.0 F 12/14/18 20:48 Pulse Rate 91 H 12/14/18 20:48 Respiratory Rate 18 12/14/18 20:48 Blood Pressure 141/77 12/14/18 20:48 O2 Sat by Pulse Oximetry 96 12/14/18 20:48 Pain Scale Pain Intensity 0 - [place] Coma Scale Best Eye Response ([place]): (4) open spontaneously Best Verbal Response ([place]): (5) oriented Best Motor Response ([place]): (6) obeys commands [place] Total: 15 - Physical Exam General Appearance: no apparent distress, alert Eye Exam: bilateral eye: PERRL, EOMI Ears, Nose, Throat Exam: normal ENT inspection, moist mucous membranes Neck Exam: normal inspection, non-tender, supple Respiratory: normal breath sounds, lungs clear, airway intact, No respiratory distress Cardiovascular: regular rate/rhythm, No edema Gastrointestinal: soft, No tenderness, No distention Back Exam: normal inspection Extremity Exam: normal inspection, No pedal edema 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 At this time she is not post ichtal and is not seizing. I did contact [facility], and pt was accepted by the hospitalist for obs, and Neurology work up in the AM. Pt is requiring EEG, med update and evaluateion by Neurology and not acute care. Labs were drawn and UA was sent. Dr Lopez is accepting. - Departure Departure Disposition: Transfer Clinical Impression: H/O tonic-clonic seizures Condition: Stable Critical Care Time: No Referrals: LUCI ANG [Primary Care Provider] - Additional Instructions: Pt to be transferred to [place]. Dr Lopez is accepting to obs. Plan of Treatment: Pt to be transfered to [facility]. Hospitalist, Dr Lopez is accepting as obs.
[2018-12-14 21:47] LABS: BASOPHIL % 0.5 % (0.0-0.4); Basophil (Absolute #) 0.04 (0-0.4); Eosinophil % 5.5 % (0.00-5.0); Eosinophil (Absolute #) 0.43 (0-0.5); Granulocyte Absolute (ANC) 4.43 (1.4-6.9); Granulocytes % 56.4 % (36.0-66.0); Hematocrit 31.9 % (35-47); Hemoglobin 10.4 gm/dl (12.0-16.0); Lymphocyte (Absolute #) 2.22 (1.0-4.6); Lymphocytes % 28.2 % (24.0-44.0); Mean Cell Volume 85.5 fl (78-100); Mean Corpuscular Hgb Concent. 32.6 g/dl (32-36); Mean Platelet Volume 10.1 fl (6-9.5); Monocyte (Absolute #) 0.74 (0.0-1.3); Monocytes % 9.4 % (0.0-12.0); Platelet Count 255 K/mm3 (150-450); Red Blood Count 3.73 M/mm3 (4.1-5.4); White Blood Count 7.9 K/mm3 (4.0-10.5)
[2018-12-14 21:50] VITALS: BP 128/71
[2018-12-14 21:51] VITALS: PULSE 80
[2018-12-14 21:55] LABS: Mean Corpuscular Hemoglobin 27.8 pg (26-32)
[2018-12-14 22:07] LABS: ALBUMIN 4.2 g/dL (3.5-5.0); ALKALINE PHOSPHATASE 122 U/L (38-126); ANION GAP 15.5 MEQ/L (5-15); BLOOD UREA NITROGEN 18 mg/dL (7-17); CHLORIDE 103 mmol/L (98-107); Calcium 8.9 mg/dL (8.4-10.2); Carbon Dioxide 25 mmol/L (22-30); Creatinine 1 0.93 mg/dL (0.52-1.04); Glucose 94 mg/dL (74-106); Potassium 4.2 mmol/L (3.5-5.1); SGOT/AST 19 U/L (14-36); SGPT/ALT 14 U/L (0-35); SODIUM 140 mmol/L (137-145); Total Protein 7.6 g/dL (6.3-8.2)
== END 2018-12-14 22:45 | disposition short-term general hospital (02) ==
LOC: ED 20:40
DX: G40.89 Other seizures (principal); Z79.899 Other long term (current) drug therapy; R53.83 Other fatigue
CPT/HCPCS: 36415; 80053; 80185; 85025; 99284

== ENCOUNTER 2019-06-08 15:04 | Emergency (ER) | payer MEDICARE ==
--- NOTE | 2019-06-08 15:27 | ERPHSYRPT ---
- History of Present Illness Time Seen by Provider: 06/08/19 15:10 Source: patient Exam Limitations: no limitations Physician History: Patient has a history of chronic low back pain and has been out of her Nucynta for the past month due to changing pharmacies and her plate painter apprentice in [place], [place] will not write her any more until 06/12/2019. Patient has not been seen by her plate painter apprentice over the past 4 weeks and will not be seen until 06/12/2019. Timing/Duration: week(s) (4), other (patient ran out of her medication) Quality: aching Back Pain Location: lumbar spine Back Pain Radiation: upper legs (sometimes down the right leg only) Severity of Pain-Max: severe Severity of Pain-Current: severe Modifying Factors: Worsens With: movement Associated Symptoms: lower back pain, No fever, No chills, No sweating, No urinary incontinence, No loss of bowel control, No constipation, No nausea, No vomiting, No problems urinating, No light-headedness, No dizziness, No numbness in legs/feet, No weakness, No sensory/motor loss, No tingling in legs/feet, No muscle spasms Previous symptoms: same symptoms as today, no recent treatment Allergies/Adverse Reactions: Iodinated Contrast Media [IV Dye, Iodine Containing Contrast ] Allergy (Severe, Verified 06/08/19 15:16) Hives Sulfa (Sulfonamide Antibiotics) [Sulfa(Sulfonamide Antibiotics)] Allergy (Mild, Verified 06/08/19 15:16) Rash codeine Allergy (Verified 06/08/19 15:16) paroxetine HCl [From Paxil] Allergy (Verified 06/08/19 15:16) Hives Home Medications: Amitriptyline HCl 10 mg [Elavil 10 mg] 50 mg PO HS 02/20/14 [History] Levothyroxine Sodium 25 Mcg [Synthroid 25 Mcg] 50 mcg PO DAILY 02/20/14 [ History] Phenytoin Sod Extended 30 mg [Dilantin 30 MG] 200 mg PO BID 02/20/14 [ History] Aspirin [[place] Aspirin EC] 81 mg PO DAILY 06/07/17 [History] Lamotrigine [Lamictal] 200 mg PO HS 06/07/17 [History] Metoprolol Succinate 25 mg Xl* [Toprol-Xl 25MG Tablets] 25 mg PO DAILY [History] Gabapentin 800 mg TID 06/08/19 [History] Hx Tetanus, Diphtheria Vaccination/Date Given: Yes Hx Influenza Vaccination/Date Given: No Hx Pneumococcal Vaccination/Date Given: No - Review of Systems Constitutional: No Fever, No Chills Eyes: No Eye Pain, No Eye Redness Ears, Nose, & Throat: No Mouth Swelling, No Painful Swallowing Respiratory: No Cough, No Dyspnea Cardiac: No Chest Pain, No Edema, No Syncope Abdominal/Gastrointestinal: No Abdominal Pain, No Nausea, No Vomiting, No Diarrhea Genitourinary Symptoms: No Dysuria, No Hematuria, No Flank Pain Musculoskeletal: Back Pain, No Neck Pain, No Fall, No Myalgias Skin: Rash (patient has had chronic discolorations to her back at the site of her heating pads for many months), No Pruritis, No Skin Lesions Neurological: No Dizziness, No Focal Weakness, No Sensory Changes Psychological: No Symptoms Endocrine: No Symptoms All Other Systems: Reviewed and Negative - Past Medical History Pertinent Past Medical History: Yes Neurological History: Epilepsy, Migraines ENT History: No Pertinent History Cardiac History: Arrhythmia Respiratory History: No Pertinent History Endocrine Medical History: Hypothyroidism Musculoskeletal History: Osteoarthritis GI Medical History: Ulcer History: No Pertinent History Psycho-Social History: No Pertinent History Female Reproductive Disorders: No Pertinent History Other Medical History: back problems - Past Surgical History Past Surgical History: Yes Neuro Surgical History: No Pertinent History Cardiac: No Pertinent History Respiratory: No Pertinent History Gastrointestinal: No Pertinent History Genitourinary: No Pertinent History Musculoskeletal: Orthopedic Surgery Female Surgical History: Section, Hysterectomy Other Surgical History: MULTIPLE BACK SURGERIES, x2 - Social History Smoking Status: Never smoker Exposure to second hand smoke: No Drug Use: none Patient Lives Alone: No - Nursing Vital Signs Nursing Vital Signs: Initial Vital Signs Pulse Rate 108 H 06/08/19 15:56 Respiratory Rate 18 06/08/19 15:56 Blood Pressure 139/93 06/08/19 15:56 O2 Sat by Pulse Oximetry 99 06/08/19 15:56 Pain Scale Pain Intensity [] 10 Pain Intensity 10 - Physical Exam General Appearance: no apparent distress, alert Eye Exam: PERRL/EOMI, eyes nml inspection, No scleral icterus, No pale conjunctivae Ears, Nose, Throat Exam: pharynx normal, moist mucous membranes Neck Exam: normal inspection, non-tender, supple, full range of motion, No meningismus, No Brudzinski, No lymphadenopathy, No midline tenderness Respiratory Exam: normal breath sounds, lungs clear, airway intact, No chest tenderness, No respiratory distress, No diminished breath sounds, No accessory muscle use, No crackles/rales, No rhonchi, No wheezing Cardiovascular Exam: regular rate/rhythm, normal heart sounds, normal peripheral pulses, capillary refill <2 sec Gastrointestinal Exam: soft, No normal bowel sounds, No tenderness, No distention, No mass, No rebound Back Exam: rash (hyperpigmentation throughout the back with no bullae, no vesicles, no urticaria, no petechiae, no purpura), other (lower midline lumbar incision scar), No CVA tenderness, No vertebral tenderness, No muscle spasm Extremity Exam: normal inspection, normal range of motion, pelvis stable, No calf tenderness, No pedal edema Peripheral Pulses: dorsalis-pedis (R): 2+, dorsalis-pedis (L): 2+ Neurologic Exam: alert, oriented x 3, cooperative, media promoter II-XII nml as tested, normal mood/affect, nml station & gait, sensation nml, No motor deficits Skin Exam: normal color, warm, dry, No rash, No jaundice, No cyanosis, No ecchymosis SpO2 Interpretation: normal O2 Delivery: Room Air - Course Nursing assessment & vital signs reviewed: Yes - Radiology Exams L-Spine X-ray Interpretation: Other (3 views of the lumbar spine demonstrates stable L4- S1 degenerative disc space narrowing, bilateral L4-S1 degenerative facet arthropathy from 06/25/2017 ) Ordered Tests: Active Orders 24 hr Category Date Time Status IV Insertion STAT Care 06/08/19 15:28 Active Medication Summary Discontinued Medications Generic Name Dose Route Start Last Admin Trade Name Juan Pabloq PRN Reason Stop Dose Admin Diphenhydramine HCl 25 mg 06/08/19 15:28 06/08/19 16:00 Benadryl 50 Mg/Ml IV 06/08/19 15:29 25 mg STAT ONE Administration Diphenhydramine HCl Confirm 06/08/19 15:56 Benadryl 50 Mg/Ml Administered 06/08/19 15:57 Dose 50 mg .ROUTE .STK-MED ONE Hydromorphone HCl 2 mg 06/08/19 15:28 06/08/19 16:01 Hydromorphone 1 Mg/Ml Ampule IV 06/08/19 15:29 2 mg STAT ONE Administration Hydromorphone HCl Confirm 06/08/19 15:56 Hydromorphone 1 Mg/Ml Ampule Administered 06/08/19 15:57 Dose 2 mg .ROUTE .STK-MED ONE - Progress Progress: improved Progress Note: 06/08/19 16:33 Patient's pain has significantly improved after IM Dilaudid and Benadryl. Patient has no new focal neurovascular deficits in the lower extremiteis bilaterally. Counseled pt/family regarding: diagnosis, need for follow-up, rad results (from x-rays of lumbar spine from 06/24/2017) - Departure Departure Disposition: Home Clinical Impression: Acute exacerbation of chronic low back pain, Elevated blood pressure reading without diagnosis of hypertension, Erythema ab igne Condition: Good Critical Care Time: No Referrals: LUCI ANG [Primary Care Provider] - 06/09/19 Instructions: DASH Diet, Low Back Pain (DC), Sciatica (DC) Additional Instructions: Do not use the heating pad anymore as your duration of using it is causing discoloration to your back. There are treatments for that discoloration but you may need to see a low altitude air defense gunner for it. Return immediately back to the emergency department if any new weakness in her extremities, symptoms going down both legs, any loss sensation or strength, numbness upon area [place], difficulty with uncontrollable diarrhea, new urinary retention, new fever or any other concerning signs or symptoms that were not present at today's emergency department visit for immediate reevaluation in the emergency department. Prescriptions: Meloxicam 7.5 mg [Mobic 7.5 MG] 15 mg PO DAILY PRN #14 tablet PRN Reason: Pain
[2019-06-08] MEDS ORDERED: Hydromorphone 1 mg/ml Ampule IV ONE (15:28)
[2019-06-08] MEDS ORDERED: BENADRYL 50 MG/ML IV ONE (15:28)
[2019-06-08] MEDS ORDERED: Hydromorphone 1 mg/ml Ampule ONE (15:56)
[2019-06-08] MEDS ORDERED: BENADRYL 50 MG/ML ONE (15:56)
[2019-06-08 16:05] VITALS: BP 139/93; PULSE 108; O2SAT 99
== END 2019-06-08 17:26 | disposition home or self-care (01) ==
LOC: ED 15:04
DX: M54.5 Low back pain (principal); R03.0 Elevated blood-pressure reading, without diagnosis of hypertension; L59.0 Erythema ab igne [dermatitis ab igne]; Z79.899 Other long term (current) drug therapy; E03.9 Hypothyroidism, unspecified
CPT/HCPCS: 36000; 96374; 96375; 99284; J1170; J1200

== ENCOUNTER 2019-06-10 13:41 | Emergency (ER) | payer MEDICARE ==
[2019-06-10 13:45] VITALS: O2SAT 99
[2019-06-10] MEDS ORDERED: Zofran 4 MG/2 ML VIAL IV ONE (15:24)
[2019-06-10] MEDS ORDERED: Sodium Chloride 0.9% 1000 ML 1,000 ML IV STA (15:24)
[2019-06-10] MEDS ORDERED: Sodium Chloride 0.9% 1000 ML 1,000 ML ONE (15:29)
[2019-06-10] MEDS ORDERED: Zofran 4 MG/2 ML VIAL ONE (15:29)
--- NOTE | 2019-06-10 15:31 | ERPHSYRPT ---
- History of Present Illness Historian: patient, family (mom came later) Patient Subjective Stated Complaint: Pt has been off of her Lucenta and Gabapentin for almost a month and she began throwing up Saturday night and continues to do so Triage Nursing Assessment: Pt brought to the ER via EMS, vomiting, pain with palpatation to the left quadrants, tachycardic, rates pain 9/10 in head, back and abdomen, bowel sounds hypoactive in all quadrants, last intake Saturday night Physician History: Pt is here with c/c of vomiting for 5 days. Pt did not tell me anything about pain meds but tells the nursing or EMS staff that she has this happen when she runs out of her Nucynta. Pt has not had any diarrhea. Pt did vomit just before coming in. Pt notes that she was able to keep some jello in for a few hours yesterday but then it came back up. Pt denies any diarrhea or abdominal pain really just the vomiting. Pt also doen't report being around anyone else who has been ill. Timing/Duration: day(s) (5) Quality: cramping Abdominal Pain Onset Location: epigastric, generalized abdomen Associated Symptoms: No fever/chills Previous symptoms: same symptoms as today Allergies/Adverse Reactions: Iodinated Contrast Media [IV Dye, Iodine Containing Contrast ] Allergy (Severe, Verified 06/10/19 13:54) Hives Sulfa (Sulfonamide Antibiotics) [Sulfa(Sulfonamide Antibiotics)] Allergy (Mild, Verified 06/10/19 13:54) Rash codeine Allergy (Verified 06/10/19 13:54) paroxetine HCl [From Paxil] Allergy (Verified 06/10/19 13:54) Hives Home Medications: Amitriptyline HCl 10 mg [Elavil 10 mg] 50 mg PO HS 02/20/14 [History] Levothyroxine Sodium 25 Mcg [Synthroid 25 Mcg] 50 mcg PO DAILY 02/20/14 [ History] Phenytoin Sod Extended 30 mg [Dilantin 30 MG] 200 mg PO BID 02/20/14 [ History] Aspirin [[place] Aspirin EC] 81 mg PO DAILY 06/07/17 [History] Lamotrigine [Lamictal] 200 mg PO HS 12/01/17 [History] Metoprolol Succinate 25 mg Xl* [Toprol-Xl 25MG Tablets] 25 mg PO DAILY [History] Gabapentin 800 mg TID 06/08/19 [History] Hx Tetanus, Diphtheria Vaccination/Date Given: Yes Hx Influenza Vaccination/Date Given: No Hx Pneumococcal Vaccination/Date Given: No - Review of Systems Constitutional: Weakness, No Fever Eyes: No Symptoms Ears, Nose, & Throat: No Symptoms Respiratory: No Symptoms, No Cough Cardiac: No Symptoms, No Chest Pain Abdominal/Gastrointestinal: Abdominal Pain, Nausea, Vomiting, Other (vomits brown stuff or bile), No Diarrhea, No Constipation, No Hematochezia Genitourinary Symptoms: Incontinence (with vomiting), No Dysuria Musculoskeletal: Back Pain (sore with vomiting) Psychological: No Symptoms All Other Systems: Reviewed and Negative - Past Medical History Pertinent Past Medical History: Yes Neurological History: Epilepsy, Migraines ENT History: No Pertinent History Cardiac History: Arrhythmia Respiratory History: No Pertinent History Endocrine Medical History: Hypothyroidism Musculoskeletal History: Osteoarthritis GI Medical History: Ulcer History: No Pertinent History Psycho-Social History: No Pertinent History Female Reproductive Disorders: No Pertinent History Other Medical History: back problems - Past Surgical History Past Surgical History: Yes Neuro Surgical History: No Pertinent History Cardiac: No Pertinent History Respiratory: No Pertinent History Gastrointestinal: No Pertinent History Genitourinary: No Pertinent History Musculoskeletal: Orthopedic Surgery Female Surgical History: Section, Hysterectomy Other Surgical History: MULTIPLE BACK SURGERIES, x2 - Social History Smoking Status: Never smoker Exposure to second hand smoke: Yes Drug Use: none Patient Lives Alone: No - Female History Hx Now: No - Nursing Vital Signs Nursing Vital Signs: Initial Vital Signs Temperature 98.3 F 06/10/19 13:42 Pulse Rate 105 H 06/10/19 13:42 Blood Pressure 146/74 06/10/19 13:42 O2 Sat by Pulse Oximetry 99 06/10/19 13:42 Pain Scale Pain Intensity 10 - Physical Exam General Appearance: no apparent distress, obese Eye Exam: PERRL/EOMI Neck Exam: normal inspection Respiratory Exam: normal breath sounds Cardiovascular Exam: regular rate/rhythm Gastrointestinal/Abdomen Exam: soft, No tenderness (somewhat hypotactive bowel sounds but they are present) Pelvic Exam: not done Rectal Exam: not done Back Exam: normal inspection Extremity Exam: normal inspection, No pedal edema, No tenderness Neurologic Exam: alert, oriented x 3, cooperative, process automation engineer II-XII nml as tested, normal mood/affect, nml cerebellar function, sensation nml, No motor deficits, No uncooperative Skin Exam: normal color, warm, dry, No rash SpO2: 99 Ordered Tests: Active Orders 24 hr Category Date Time Status ABDOMEN AND PELVIS W/0 CONTRAS [CT] Stat Exams 06/10/19 15:25 Completed AMYLASE Stat Lab 06/10/19 15:30 Completed CBC W DIFF Stat Lab 06/10/19 15:30 Completed LIPASE Stat Lab 06/10/19 15:30 Completed Lactic Acid Stat Lab 06/10/19 15:30 Completed Medication Summary Discontinued Medications Generic Name Dose Route Start Last Admin Trade Name Freq PRN Reason Stop Dose Admin Sodium Chloride 1,000 mls @ 999 mls/hr 06/10/19 15:24 06/10/19 16:37 Sodium Chloride 0.9% 1000 Ml IV 06/10/19 16:24 Infused .Q1H1M STA Infusion Sodium Chloride Confirm 06/10/19 15:29 Sodium Chloride 0.9% 1000 Ml Administered 06/10/19 15:30 Dose 1,000 mls @ ud .ROUTE .STK-MED ONE Ondansetron HCl 4 mg 06/10/19 15:24 06/10/19 15:34 Zofran 4 Mg/2 Ml Vial IV 06/10/19 15:25 4 mg STAT ONE Administration Ondansetron HCl Confirm 06/10/19 15:29 Zofran 4 Mg/2 Ml Vial Administered 06/10/19 15:30 Dose 4 mg .ROUTE .STK-MED ONE Prochlorperazine Edisylate 10 mg 06/10/19 16:22 06/10/19 16:26 Compazine 10 Mg/2 Ml IV 06/10/19 16:23 10 mg STAT ONE Administration Prochlorperazine Edisylate Confirm 06/10/19 16:24 Compazine 10 Mg/2 Ml Administered 06/10/19 16:25 Dose 10 mg .ROUTE .STK-MED ONE Promethazine HCl 25 mg 06/10/19 18:45 06/10/19 18:51 Phenergan 25 Mg Inj IM 06/10/19 18:46 25 mg STAT ONE Administration Promethazine HCl Confirm 06/10/19 18:50 Phenergan 25 Mg Inj Administered 06/10/19 18:51 Dose 25 mg .ROUTE .STK-MED ONE Lab/Rad Data: Laboratory Result Diagrams 06/10/19 15:30 Laboratory Results 06/10/19 06/10/19 06/10/19 Range/Units 15:30 15:30 15:30 WBC 12.4 H (4.0-10.5) K/mm3 RBC 4.43 (4.1-5.4) M/mm3 Hgb 11.9 L (12.0-16.0) gm/dl Hct 35.5 (35-47) % MCV 80.1 (78-100) fl MCH 26.9 (26-32) pg MCHC 33.5 (32-36) g/dl RDW 14.8 H (11.5-14.0) % Plt Count 338 (150-450) K/mm3 MPV 11.0 H (6-9.5) fl Gran % 79.2 H (36.0-66.0) % Eos # (Auto) 0.10 (0-0.5) Absolute Lymphs (auto) 1.52 (1.0-4.6) Absolute Monos (auto) 0.96 (0.0-1.3) Lymphocytes % 12.2 L (24.0-44.0) % Monocytes % 7.7 (0.0-12.0) % Eosinophils % 0.8 (0.00-5.0) % Basophils % 0.1 (0.0-0.4) % Absolute Granulocytes 9.83 H (1.4-6.9) Basophils # 0.01 (0-0.4) Lactic Acid 1.4 (0.4-2.0) Amylase 97 (30-110) U/L Lipase 45 (23-300) U/L - Progress Progress: improved Progress Note: 06/10/19 21:46 Pt improved a bit with zofran but not enough then improved a bit more with Compazine but still vomited another time then improved more with phernergan which she said has helped her in the past. Pt voicing feeling ready to go home. - Departure Departure Disposition: Home Clinical Impression: Vomiting Condition: Stable Critical Care Time: No Referrals: LUCI ANG [Primary Care Provider] - Instructions: Vomiting -- Adult Additional Instructions: Pt to not take anything by mouth for 4 hours then start with sips of clear liquid without caffiene. Pt to sip then wait 5-10 minutes and then repeat then try 1 oz of fluid then wait 10-15 minutes and once you can handle this then you can sip freely. If you vomit do not take in anything for 4 hours then restart. The next day start with bananas, rice, applesauce and toast. I recommend that you start with the rice with maybe bullion or soy sauce then advance as you tolerate.Take meds as prescribed. Follow up with your primary care doctor in the next 1-7 days, Return to the ER with emergent problems. Prescriptions: Promethazine HCl 25 mg [Phenergan 25 mg] 25 mg PO Q8H PRN PRN #6 tablet PRN Reason: Nausea/Vomiting
[2019-06-10 16:05] LABS: AMYLASE 97 U/L (30-110); LIPASE 45 U/L (23-300)
--- NOTE | 2019-06-10 16:07 | XRAY ---
Indication: Abdominal pain, nausea, and vomiting. Multiple contiguous axial images obtained through the abdomen and pelvis without contrast as ordered. Comparison: CT renal stone study September 24, 2014 Lung bases demonstrates minimal right base fibrosis/scarring. No infiltrate or effusion. Heart is not enlarged. Again previous gastric bypass surgery. Stomach is mildly distended with food/fluid. Noncontrasted stomach and bowel loops appear nonobstructed. Patient reports appendectomy, cholecystotomy, and hysterectomy. No free fluid/air. Stable 2.1 cm right renal cyst and calcified hepatic/splenic granulomas. Remaining liver, pancreas, spleen, adrenal glands, kidneys, ureters, bladder, and aorta appear unremarkable for noncontrast exam. Osseous structures intact again with mild degenerative changes throughout the spine again greatest at the L4-L5 level. Impression: 1. Stable gastric bypass surgery, right renal cyst, and evidence for old granulomatous disease. 2. Remaining CT abdomen/pelvis without contrast exam is negative. CT DI 11.42
[2019-06-10 16:17] LABS: Absolute Neutrophil Ct (ANC) 9.83 (1.4-6.9); BASOPHIL % 0.1 % (0.0-0.4); Basophil (Absolute #) 0.01 (0-0.4); Eosinophil % 0.8 % (0.00-5.0); Hematocrit 35.5 % (35-47); Hemoglobin 11.9 gm/dl (12.0-16.0); Lymphocyte (Absolute #) 1.52 (1.0-4.6); Lymphocytes % 12.2 % (24.0-44.0); Mean Cell Volume 80.1 fl (78-100); Mean Corpuscular Hemoglobin 26.9 pg (26-32); Mean Corpuscular Hgb Concent. 33.5 g/dl (32-36); Monocyte (Absolute #) 0.96 (0.0-1.3); Monocytes % 7.7 % (0.0-12.0); Neutrophil % 79.2 % (36.0-66.0); Platelet Count 338 K/mm3 (150-450); Red Blood Count 4.43 M/mm3 (4.1-5.4); Red Cell Distribution Width 14.8 % (11.5-14.0); White Blood Count 12.4 K/mm3 (4.0-10.5)
[2019-06-10] MEDS ORDERED: Compazine 10 MG/2 ML IV ONE (16:22)
[2019-06-10] MEDS ORDERED: Compazine 10 MG/2 ML ONE (16:24)
[2019-06-10 18:27] VITALS: PULSE 92
[2019-06-10 18:28] VITALS: BP 146/74
[2019-06-10] MEDS ORDERED: Phenergan 25 MG INJ IM ONE (18:45)
[2019-06-10] MEDS ORDERED: Phenergan 25 MG INJ ONE (18:50)
== END 2019-06-10 19:07 | disposition home or self-care (01) ==
LOC: ED 13:41
DX: R11.10 Vomiting, unspecified (principal); R10.13 Epigastric pain; Z79.899 Other long term (current) drug therapy; E03.9 Hypothyroidism, unspecified
CPT/HCPCS: 36000; 36415; 74176; 82150; 83605; 83690; 85025; 96360; 96372; 96374; 96375; 99284; J2405; J2550

== ENCOUNTER 2020-02-12 18:20 | Emergency (ER) | payer MEDICARE ==
--- NOTE | 2020-02-12 19:02 | ERPHSYRPT ---
- History of Present Illness Time Seen by Provider: 02/12/20 18:50 Patient Subjective Stated Complaint: pt reports redness, swelling and pain to her right index finger. pt denies injury. pt states the redness is advancing up her finger. Triage Nursing Assessment: pt is aox3, pupils perrl, afebrile, resps easy and non labored, cap refill < 3 seconds, radial pulses strong and equal, pt skin pink warm dry. redness and swelling noted to the right index finger. skin is intact. pt sensation is intact, pt is unable to bend her right finger at this time. Physician History: Patient is a 64-year-old white female who presents with a complaint of pain and swelling to the right index finger. She noticed blisters around the base of the nail area and then swelling and pain throughout the finger. No history of previous similar problem. Quality: burning, painful Severity: moderate Location: other (Right index finger) Possible Causes: no cause identified Associated Symptoms: blisters, edema Allergies/Adverse Reactions: Iodinated Contrast Media [IV Dye, Iodine Containing Contrast ] Allergy (Severe, Verified 02/12/20 18:50) Hives Sulfa (Sulfonamide Antibiotics) [Sulfa(Sulfonamide Antibiotics)] Allergy (Mild, Verified 02/12/20 18:50) Rash codeine Allergy (Verified 02/12/20 18:50) paroxetine HCl [From Paxil] Allergy (Verified 02/12/20 18:50) Hives Home Medications: Amitriptyline HCl 10 mg [Elavil 10 mg] 50 mg PO HS 02/20/14 [History] Levothyroxine Sodium 25 Mcg [Synthroid 25 Mcg] 50 mcg PO DAILY 02/20/14 [History] Phenytoin Sod Extended 30 mg [Dilantin 30 MG] 200 mg PO BID 02/20/14 [History] Aspirin [[place] Aspirin EC] 81 mg PO DAILY 06/07/17 [History] Lamotrigine [Lamictal] 200 mg PO HS 06/07/17 [History] Metoprolol Succinate 25 mg Xl* [Toprol-Xl 25MG Tablets] 25 mg PO DAILY 06/07/17 [History] Gabapentin 800 mg TID 06/08/19 [History] Hx Tetanus, Diphtheria Vaccination/Date Given: Yes Hx Influenza Vaccination/Date Given: Yes Hx Pneumococcal Vaccination/Date Given: Yes Immunizations Up to Date: Yes Travel Risk - International Travel Have you traveled outside of the country in past 3 weeks: No - Coronavirus Screening Are you exhibiting any of the following symptoms?: No Close contact with a COVID-19 positive Pt in past 14-21 Days: No - Review of Systems Constitutional: No Fever, No Chills Eyes: No Symptoms Ears, Nose, & Throat: No Symptoms Respiratory: No Cough, No Dyspnea Cardiac: No Chest Pain, No Edema, No Syncope Abdominal/Gastrointestinal: No Abdominal Pain, No Nausea, No Vomiting, No Diarrhea Genitourinary Symptoms: No Dysuria Musculoskeletal: No Back Pain, No Neck Pain Skin: Rash, Skin Lesions Neurological: No Dizziness, No Focal Weakness, No Sensory Changes Psychological: No Symptoms Endocrine: No Symptoms All Other Systems: Reviewed and Negative - Past Medical History Pertinent Past Medical History: Yes Neurological History: Epilepsy, Migraines ENT History: No Pertinent History Cardiac History: Arrhythmia Respiratory History: No Pertinent History Endocrine Medical History: Hypothyroidism Musculoskeletal History: Osteoarthritis GI Medical History: Ulcer History: No Pertinent History Psycho-Social History: No Pertinent History Female Reproductive Disorders: No Pertinent History Other Medical History: back problems - Past Surgical History Past Surgical History: Yes Neuro Surgical History: No Pertinent History Cardiac: No Pertinent History Respiratory: No Pertinent History Gastrointestinal: No Pertinent History Genitourinary: No Pertinent History Musculoskeletal: Orthopedic Surgery Female Surgical History: Section, Hysterectomy Other Surgical History: MULTIPLE BACK SURGERIES, x2 - Social History Smoking Status: Never smoker Exposure to second hand smoke: Yes Drug Use: none Patient Lives Alone: No - Female History Hx Now: No - Nursing Vital Signs Nursing Vital Signs: Initial Vital Signs Temperature 98.1 F 02/12/20 18:39 Pulse Rate 82 02/12/20 18:39 Respiratory Rate 20 02/12/20 18:39 Blood Pressure 164/81 02/12/20 18:39 O2 Sat by Pulse Oximetry 100 02/12/20 18:39 Pain Scale Pain Intensity 10 - Physical Exam General Appearance: no apparent distress, alert Eye Exam: PERRL/EOMI, eyes nml inspection Ears, Nose, Throat Exam: normal ENT inspection, pharynx normal, moist mucous membranes Neck Exam: normal inspection, non-tender, supple, full range of motion Respiratory Exam: normal breath sounds, lungs clear, No respiratory distress Cardiovascular Exam: regular rate/rhythm, normal heart sounds Gastrointestinal/Abdomen Exam: soft, mass, No tenderness Back Exam: normal inspection, normal range of motion, No CVA tenderness, No vertebral tenderness Extremity Exam: normal inspection, normal range of motion Neurologic Exam: alert, oriented x 3, cooperative, normal mood/affect, sensation nml, No motor deficits Skin Exam: normal color, warm, dry, other (The right index finger is remarkable for herpetic appearing vesicular lesions at the base of the nail. There is pain and swelling of the finger.) SpO2: 100 - Course Nursing assessment & vital signs reviewed: Yes - Progress Progress: unchanged - Departure Departure Disposition: Home Clinical Impression: Herpetic shruthi Condition: Stable Critical Care Time: No Referrals: LUCI ANG [Primary Care Provider] - Instructions: penabila Hernández (DC) Prescriptions: Tramadol HCl 50 mg [Ultram 50 mg] 50 mg PO Q6H PRN 3 Days #12 tablet PRN Reason: Pain Acyclovir 800 mg [Zovirax 800 mg] 800 mg PO QID 7 Days #28 tablet
[2020-02-12 19:13] VITALS: BP 156/90; PULSE 76; O2SAT 99
== END 2020-02-12 19:13 | disposition home or self-care (01) ==
LOC: ED 18:20
DX: B00.89 Other herpesviral infection (principal)
CPT/HCPCS: 99283

== ENCOUNTER 2020-07-07 18:27 | Emergency (ER) | payer MEDICARE ==
[2020-07-07] MEDS ORDERED: Zofran 4 MG/2 ML VIAL IV ONE (18:57)
[2020-07-07] MEDS ORDERED: Sodium Chloride 0.9% 1000 ML 1,000 ML IV STA (18:57)
[2020-07-07] MEDS ORDERED: PROTONIX 40 MG IV IV ONE ×2 (18:57→19:31)
[2020-07-07 19:00] VITALS: O2SAT 100
[2020-07-07] MEDS ORDERED: PROTONIX 40 MG IV*** 80 MG in Sodium Chloride 0.9% 500 ML 500 ML IV SCH (19:00)
[2020-07-07 19:28] LABS: Hematocrit 22.2 % (35-47); Mean Cell Volume 72.3 fl (78-100); Mean Corpuscular Hemoglobin 22.1 pg (26-32); Mean Corpuscular Hgb Concent. 30.6 g/dl (32-36); Mean Platelet Volume 9.5 fl (7.5-11.0); Platelet Count 397 K/mm3 (150-450); Red Blood Count 3.07 M/mm3 (4.1-5.4); Red Cell Distribution Width 16.6 % (11.5-14.0); White Blood Count 9.9 K/mm3 (4.0-10.5)
[2020-07-07] MEDS ORDERED: Zofran 4 MG/2 ML VIAL ONE (19:31)
[2020-07-07] MEDS ORDERED: Sodium Chloride 0.9% 1000 ML 1,000 ML ONE (19:31)
[2020-07-07] MEDS ORDERED: SODIUM CHLORIDE 0.9% IV ONE (19:32)
[2020-07-07 19:34] LABS: INR 1.16 (0.8-3.0); PROTIME 13.1 SECONDS (9.95-12.35)
[2020-07-07 19:35] LABS: Hemoglobin 6.8 gm/dl (12.0-16.0)
[2020-07-07 19:37] LABS: PTT 26.9 SECONDS (25.3-37.0)
[2020-07-07 19:38] LABS: Appearance CLEAR (CLEAR); Bilirubin NEGATIVE (NEGATIVE); Blood LARGE Ery/ul (0-5); Epithelial Cells RARE /HPF (FEW); Glucose NEGATIVE (NEGATIVE); Ketones NEGATIVE (NEGATIVE); Leukocyte Esterase NEGATIVE (NEGATIVE); Mucus SLIGHT /HPF (NEGATIVE); Nitrite NEGATIVE (NEGATIVE); Protein,Urine Dip NEGATIVE (Negative); Specific Gravity 1.008 (1.005-1.025); Urobilinogen NEGATIVE mg/dL (0-1)
[2020-07-07 19:43] LABS: ALBUMIN 3.9 g/dL (3.5-5.0); ALKALINE PHOSPHATASE 159 U/L (38-126); ANION GAP 11.5 MEQ/L (5-15); BLOOD UREA NITROGEN 11 mg/dL (7-17); CHLORIDE 104 mmol/L (98-107); Calcium 8.2 mg/dL (8.4-10.2); Carbon Dioxide 21 mmol/L (22-30); Creatinine 1 0.73 mg/dL (0.52-1.04); EST GLOMERULAR FILTRATION RATE > 60.0 ML/MIN; Glucose 108 mg/dL (74-106); SGOT/AST 23 U/L (14-36); SGPT/ALT 10 U/L (0-35); SODIUM 134 mmol/L (137-145); Total Protein 7.4 g/dL (6.3-8.2)
[2020-07-07] MEDS ORDERED: Sodium Chloride 0.9% 500 ML 500 ML IV ONE (19:46)
[2020-07-07 19:48] LABS: Potassium 2.7 mmol/L (3.5-5.1)
[2020-07-07] MEDS ORDERED: Klor Con 10 MEQ PO ONE ×2 (19:52→20:10)
[2020-07-07] MEDS ORDERED: POTASSIUM CHLORIDE 20 mEq IN WATER 100ML 200 ML IV ONE (20:10)
[2020-07-07] MEDS: POTASSIUM CHLORIDE 20 mEq IN WATER 100ML 20 MEQ/100 ML BAG IV SCH ×2 (20:12→20:14)
--- NOTE | 2020-07-07 21:14 | ERPHSYRPT ---
- History of Present Illness Time Seen by Provider: 07/07/20 18:31 Patient Subjective Stated Complaint: [place] [facility] [place] and told that she had a hemoglobin of 5.something and to come to the ER and get blood Triage Nursing Assessment: Pt brought to the ER by her , vitals wnl, skin pale/dry/normal, rates overall body pain as 6/10, pulses normal, sinus rhythm, denies chest pain, N&V 2 weeks ago but not now, doesn't appear to be in any distress Physician History: 64 years old female with a history of hypertension, hyperlipidemia, DVT questionably taking anticoagulant is sent in ER by primary care for low hemoglobin on work-up done yesterday. Patient reports she is having generalized weakness fatigue and dyspnea on exertion which is progressively worsening for the last 2 months. Does have history of gastric ulcers bleeding in the past as well needing blood transfusion. Patient reports having intermittent dark stool but denies any epigastric/heartburns history. Did not notice any fresh blood in the stool. No abdominal pain at all. Denies any chest pain. Does not take NSAIDs on a routine basis. Denies any fever chills or cough. Timing/Duration: week(s), gradual onset, worse Severity: moderate Modifying Factors: Improves With: rest Associated Symptoms: nausea, weakness, No vomiting, No abdominal pain, No shortness of breath, No heartburn, No chest pain, No syncope Allergies/Adverse Reactions: Iodinated Contrast Media [IV Dye, Iodine Containing Contrast ] Allergy (Severe, Verified 07/07/20 19:02) Hives Sulfa (Sulfonamide Antibiotics) [Sulfa(Sulfonamide Antibiotics)] Allergy (Mild, Verified 07/07/20 19:02) Rash codeine Allergy (Verified 07/07/20 19:02) paroxetine HCl [From Paxil] Allergy (Verified 07/07/20 19:02) Hives Home Medications: Amitriptyline HCl 10 mg [Elavil 10 mg] 50 mg PO HS 02/20/14 [History] Levothyroxine Sodium 25 Mcg [Synthroid 25 Mcg] 50 mcg PO DAILY 02/20/14 [History] Phenytoin Sod Extended 30 mg [Dilantin 30 MG] 200 mg PO BID 02/20/14 [History] Aspirin [[place] Aspirin EC] 81 mg PO DAILY 06/07/17 [History] Lamotrigine [Lamictal] 200 mg PO HS 06/07/17 [History] Metoprolol Succinate 25 mg Xl* [Toprol-Xl 25MG Tablets] 25 mg PO DAILY 06/07/17 [History] Gabapentin 800 mg TID 06/08/19 [History] Hx Tetanus, Diphtheria Vaccination/Date Given: Yes Hx Influenza Vaccination/Date Given: Yes Hx Pneumococcal Vaccination/Date Given: Yes Travel Risk - International Travel Have you traveled outside of the country in past 3 weeks: No - Coronavirus Screening Are you exhibiting any of the following symptoms?: No Close contact with a COVID-19 positive Pt in past 14-21 Days: No - Review of Systems Constitutional: Fatigue, Weakness Eyes: No Symptoms Ears, Nose, & Throat: No Symptoms Respiratory: Dyspnea on Exertion (TUBBS) Cardiac: No Symptoms Abdominal/Gastrointestinal: Melena Genitourinary Symptoms: No Symptoms Musculoskeletal: No Symptoms Skin: No Symptoms Neurological: No Symptoms Psychological: No Symptoms Endocrine: No Symptoms Hematologic/Lymphatic: No Symptoms Immunological/Allergic: No Symptoms - Past Medical History Pertinent Past Medical History: Yes Neurological History: Epilepsy, Migraines ENT History: No Pertinent History Cardiac History: Arrhythmia Respiratory History: No Pertinent History Endocrine Medical History: Hypothyroidism Musculoskeletal History: Osteoarthritis GI Medical History: Ulcer History: No Pertinent History Psycho-Social History: No Pertinent History Female Reproductive Disorders: No Pertinent History Other Medical History: back problems - Past Surgical History Past Surgical History: Yes Neuro Surgical History: No Pertinent History Cardiac: No Pertinent History Respiratory: No Pertinent History Gastrointestinal: No Pertinent History Genitourinary: No Pertinent History Musculoskeletal: Orthopedic Surgery Female Surgical History: Section, Hysterectomy Other Surgical History: MULTIPLE BACK SURGERIES, x2 - Social History Smoking Status: Never smoker Exposure to second hand smoke: Yes Drug Use: none Patient Lives Alone: No - Nursing Vital Signs Nursing Vital Signs: Initial Vital Signs Temperature 98.2 F 07/07/20 18:34 Pulse Rate 77 07/07/20 18:34 Blood Pressure 144/97 07/07/20 18:34 O2 Sat by Pulse Oximetry 100 07/07/20 18:34 Pain Scale Pain Intensity 3 - Physical Exam General Appearance: no apparent distress, alert Eye Exam: PERRL/EOMI, pale conjunctivae Ears, Nose, Throat Exam: normal ENT inspection, TMs normal, pharynx normal Neck Exam: normal inspection, non-tender, supple, full range of motion Respiratory Exam: normal breath sounds, lungs clear, No chest tenderness Cardiovascular Exam: regular rate/rhythm, normal heart sounds Gastrointestinal/Abdomen Exam: soft, normal bowel sounds, No tenderness Back Exam: normal inspection, normal range of motion Extremity Exam: normal inspection, normal range of motion, pelvis stable Neurologic Exam: alert, oriented x 3, cooperative, 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 as tested, normal mood/affect Skin Exam: normal color SpO2 Interpretation: normal SpO2: 100 O2 Delivery: Room Air Ordered Tests: Active Orders 24 hr Category Date Time 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 Care 07/07/20 18:58 Active IV Insertion STAT Care 07/07/20 18:57 Active IV Insertion-2nd Peripheral STAT Care 07/07/20 18:57 Active Pulse Oximetry (ED) STAT Care 07/07/20 18:57 Active CHEST 1 VIEW (PORTABLE) Stat Exams 07/07/20 18:58 Taken CBC W DIFF Stat Lab 07/07/20 19:15 Completed CMP Stat Lab 07/07/20 19:15 Completed FECAL OCCULT BLOOD - SCREENING Stat Lab 07/07/20 18:57 Ordered Lactic Acid Stat Lab 07/07/20 19:30 Completed Manual Differential NC Stat Lab 07/07/20 19:15 Completed PROTIME WITH INR Stat Lab 07/07/20 19:15 Completed PTT Stat Lab 07/07/20 19:15 Completed UA W/RFX UR CULTURE Stat Lab 07/07/20 19:07 Completed Medication Summary Generic Name Dose Route Start Last Admin Trade Name Freq PRN Reason Stop Dose Admin Pantoprazole Sodium 80 mg/ 500 mls @ 50 mls/hr 07/07/20 19:00 07/07/20 19:45 Sodium Chloride IV 08/06/20 18:59 50 mls/hr .Q10H CARINA 50 mls/hr Administration Potassium Chloride 20 meq in 100 mls @ 50 mls/hr 07/07/20 20:00 07/07/20 20:14 Potassium Chloride 20 Meq In Water 100ml IV 07/07/20 23:59 50 mls/hr Q2H CARINA Administration Discontinued Medications Generic Name Dose Route Start Last Admin Trade Name Freq PRN Reason Stop Dose Admin Sodium Chloride 1,000 mls @ 999 mls/hr 07/07/20 18:57 07/07/20 19:51 Sodium Chloride 0.9% 1000 Ml IV 07/07/20 19:57 999 mls/hr .Q1H1M STA Administration Sodium Chloride Confirm 07/07/20 19:31 Sodium Chloride 0.9% 1000 Ml Administered 07/07/20 19:32 Dose 1,000 mls @ ud .ROUTE .STK-MED ONE Sodium Chloride Confirm 07/07/20 19:32 Sodium Chloride 0.9% 50 Ml Administered 07/07/20 19:33 Dose 50 mls @ ud IV .STK-MED ONE Sodium Chloride Confirm 07/07/20 19:46 Sodium Chloride 0.9% 500 Ml Administered 07/07/20 19:47 Dose 500 mls @ ud IV .STK-MED ONE Ondansetron HCl 4 mg 07/07/20 18:57 07/07/20 19:45 Zofran 4 Mg/2 Ml Vial IV 07/07/20 18:58 4 mg STAT ONE Administration Ondansetron HCl Confirm 07/07/20 19:31 Zofran 4 Mg/2 Ml Vial Administered 07/07/20 19:32 Dose 4 mg .ROUTE .STK-MED ONE Pantoprazole Sodium 40 mg 07/07/20 18:57 07/07/20 19:45 Protonix 40 Mg Iv IV 07/07/20 18:58 40 mg STAT ONE Administration Pantoprazole Sodium Confirm 07/07/20 19:31 Protonix 40 Mg Iv Administered 07/07/20 19:32 Dose 120 mg IV .STK-MED ONE Potassium Chloride 40 meq 07/07/20 19:52 07/07/20 20:12 Klor Con 10 Meq PO 07/07/20 19:53 40 meq STAT ONE Administration Potassium Chloride Confirm 07/07/20 20:10 Klor Con 10 Meq Administered 07/07/20 20:11 Dose 40 meq PO .STK-MED ONE Lab/Rad Data: Laboratory Result Diagrams 07/07/20 19:15 07/07/20 19:15 Laboratory Results 07/07/20 07/07/20 07/07/20 Range/Units 19:30 19:15 19:15 WBC (4.0-10.5) K/mm3 RBC (4.1-5.4) M/mm3 Hgb (12.0-16.0) gm/dl Hct (35-47) % MCV (78-100) fl MCH (26-32) pg MCHC (32-36) g/dl RDW (11.5-14.0) % Plt Count (150-450) K/mm3 MPV (7.5-11.0) fl PT 13.1 H (9.95-12.35) SECONDS INR 1.16 (0.8-3.0) APTT 26.9 (25.3-37.0) SECONDS Sodium (137-145) mmol/L Potassium (3.5-5.1) mmol/L Chloride (98-107) mmol/L Carbon Dioxide (22-30) mmol/L Anion Gap (5-15) MEQ/L BUN (7-17) mg/dL Creatinine (0.52-1.04) mg/dL Estimated GFR ML/MIN Glucose (74-106) mg/dL Lactic Acid 1.0 (0.4-2.0) Calcium (8.4-10.2) mg/dL Total Bilirubin (0.2-1.3) mg/dL AST (14-36) U/L ALT (0-35) U/L Alkaline Phosphatase (38-126) U/L Serum Total Protein (6.3-8.2) g/dL Albumin (3.5-5.0) g/dL Urine Color (YELLOW) Urine Appearance (CLEAR) Urine pH (5-6) Ur Specific [place] (1.005-1.025) Urine Protein (Negative) Urine Ketones (NEGATIVE) Urine Blood (0-5) Lyle/ul Urine Nitrite (NEGATIVE) Urine Bilirubin (NEGATIVE) Urine Urobilinogen (0-1) mg/dL Ur Leukocyte Esterase (NEGATIVE) Urine WBC (Auto) (0-5) /HPF Urine RBC (Auto) (0-2) /HPF U Epithel Cells (Auto) (FEW) /HPF Urine Bacteria (Auto) (NEGATIVE) /HPF Urine Mucus (Auto) (NEGATIVE) /HPF Urine Culture Reflexed (NO) Urine Glucose (NEGATIVE) mg/dL Crossmatch Cancelled 07/07/20 07/07/20 07/07/20 Range/Units 19:15 19:15 19:07 WBC 9.9 (4.0-10.5) K/mm3 RBC 3.07 L (4.1-5.4) M/mm3 Hgb 6.8 L* (12.0-16.0) gm/dl Hct 22.2 L (35-47) % MCV 72.3 L (78-100) fl MCH 22.1 L (26-32) pg MCHC 30.6 L (32-36) g/dl RDW 16.6 H (11.5-14.0) % Plt Count 397 (150-450) K/mm3 MPV 9.5 (7.5-11.0) fl PT (9.95-12.35) SECONDS INR (0.8-3.0) APTT (25.3-37.0) SECONDS Sodium 134 L (137-145) mmol/L Potassium 2.7 L* (3.5-5.1) mmol/L Chloride 104 (98-107) mmol/L Carbon Dioxide 21 L (22-30) mmol/L Anion Gap 11.5 (5-15) MEQ/L BUN 11 (7-17) mg/dL Creatinine 0.73 (0.52-1.04) mg/dL Estimated GFR > 60.0 ML/MIN Glucose 108 H (74-106) mg/dL Lactic Acid (0.4-2.0) Calcium 8.2 L (8.4-10.2) mg/dL Total Bilirubin 0.20 (0.2-1.3) mg/dL AST 23 (14-36) U/L ALT 10 (0-35) U/L Alkaline Phosphatase 159 H (38-126) U/L Serum Total Protein 7.4 (6.3-8.2) g/dL Albumin 3.9 (3.5-5.0) g/dL Urine Color STRAW (YELLOW) Urine Appearance CLEAR (CLEAR) Urine pH 7.0 (5-6) Ur Specific [place] 1.008 (1.005-1.025) Urine Protein NEGATIVE (Negative) Urine Ketones NEGATIVE (NEGATIVE) Urine Blood LARGE (0-5) Lyle/ul Urine Nitrite NEGATIVE (NEGATIVE) Urine Bilirubin NEGATIVE (NEGATIVE) Urine Urobilinogen NEGATIVE (0-1) mg/dL Ur Leukocyte Esterase NEGATIVE (NEGATIVE) Urine WBC (Auto) NONE (0-5) /HPF Urine RBC (Auto) 6-10 (0-2) /HPF U Epithel Cells (Auto) RARE (FEW) /HPF Urine Bacteria (Auto) NONE (NEGATIVE) /HPF Urine Mucus (Auto) SLIGHT (NEGATIVE) /HPF Urine Culture Reflexed NO (NO) Urine Glucose NEGATIVE (NEGATIVE) mg/dL Crossmatch - Progress Progress: unchanged Progress Note: 07/07/20 21:10 64 years old is evaluated for melena with generalized weakness fatigue and hemoglobin of 5.8 done yesterday. She is given a fluid bolus, I have repeated labs and she has a hemoglobin of 6.8, typed and screen blood. She also has hypokalemia 2.7 and is started on oral and IV replacement. Chest x- ray is negative for any acute heart failure/congestion. EKG normal sinus with no acute ischemic changes. Negative initial troponins. Initial plan was to admit patient here and transfused 2 units until I talked who knows patient very well. Per Dr. Pineda patient has antibodies in her blood and needs irradiated blood which is hard to get it here and recommended transfer to [place]. [facility], reviewed patient history work-up and plan of transfusion irradiated RBCs, she agreed with transfer. Plan discussed with patient who understand and agrees with it. Discussed with : Juan Counseled pt/family regarding: lab results, diagnosis, rad results - Departure Departure Disposition: Transfer Clinical Impression: Symptomatic anemia, Hypokalemia GI bleed Qualifiers: GI bleed type/associated pathology: melena Qualified Code(s): K92.1 - Melena Condition: Stable Critical Care Time: Yes Critical Care Time(excluding separately billable procedures): Critical 30-74 mins Referrals: LUCI ANG [Primary Care Provider] -
[2020-07-07] MEDS ORDERED: Ativan 1 MG PO ONE (21:26)
[2020-07-07 22:04] VITALS: BP 165/85; PULSE 83
--- NOTE | 2020-07-07 22:08 | XRAY ---
Indication: Short of breath. Low WBC. Comparison: July 13, 2018. Portable chest demonstrates normal heart, lungs, and bony thorax with again incidental epigastric surgical clips.
[2020-07-07 22:47] LABS: Eosinophil 2 % (0.00-3.0); Lymphocytes 18 % (24-44); Monocyte 7 % (0.0-12.0); Neutrophils 73 % (36.0-66.0); Platelet Estimate NORMAL (NORMAL); Total Cells Counted 100
[2020-07-07 22:48] LABS: ANISOCYTOSIS 2+; Poikilocytosis 1+
[2020-07-07 22:50] LABS: Hypochromia 1+
[2020-07-07 22:51] LABS: Targert Cells RARE
[2020-07-07 22:54] LABS: Stomatocyte RARE
== END 2020-07-07 22:22 | disposition short-term general hospital (02) ==
LOC: ED 18:27
DX: R79.9 Abnormal finding of blood chemistry, unspecified (principal); K92.1 Melena; I10 Essential (primary) hypertension; E78.5 Hyperlipidemia, unspecified; Z79.01 Long term (current) use of anticoagulants; R53.83 Other fatigue; R06.00 Dyspnea, unspecified; E03.9 Hypothyroidism, unspecified; E87.6 Hypokalemia; D64.9 Anemia, unspecified
CPT/HCPCS: 36000; 36415; 71045; 80053; 81001; 83605; 85025; 85610; 85730; 93041; 94760; 96360; 96365; 96367; 96374; 96375; 99285; 99291; J2405; J3480; A9270-GY

== ENCOUNTER 2020-07-28 15:30 | Inpatient (IN) | payer MEDICARE ==
--- NOTE | 2020-07-28 16:02 | ERPHSYRPT ---
- History of Present Illness Time Seen by Provider: 07/28/20 15:40 Source: patient Exam Limitations: no limitations Patient Subjective Stated Complaint: Pt states "I have felt bad since last saturday but today I am really short of breath." Triage Nursing Assessment: PT presented alert and oriented X 3, skin pwd Pt ambulates with a hunched over gait. PT able to speak in 3 to 5 word sentences pt tachypneic. Pt stated she has a headache. Physician History: This is a 64-year-old white female who has a history of hypokalemia, symptomatic anemia requiring transfusions of packed red blood cells in the recent past. She has a negative and Rh- blood. Because this is not a common blood type, during her last transfusion of packed red blood cells, she had to be transferred to [facility]. Patient has a history of seizure disorder on Dilantin, migraine headaches hypothyroidism and hypertension. Patient presents with shortness of breath, weakness and migraine headache. The migraine headache has been present for approximately 2 days and the shortness of breath and weakness have been present since last Saturday. Patient states she has not noticed any type of blood loss. Patient denies chest pain Activities at Onset: none Severity of Dyspnea-Max: moderate Severity of Dyspnea-Current: moderate Possible Cause: occasional episodes Modifying Factors: Improves With: activity, exertion Associated Symptoms: No chest pain/discomfort Allergies/Adverse Reactions: Iodinated Contrast Media [IV Dye, Iodine Containing Contrast ] Allergy (Severe, Verified 07/07/20 19:02) Hives Sulfa (Sulfonamide Antibiotics) [Sulfa(Sulfonamide Antibiotics)] Allergy (Mild, Verified 07/07/20 19:02) Rash codeine Allergy (Verified 07/07/20 19:02) paroxetine HCl [From Paxil] Allergy (Verified 07/07/20 19:02) Hives Home Medications: Amitriptyline HCl 10 mg [Elavil 10 mg] 50 mg PO HS 02/20/14 [History] Levothyroxine Sodium 25 Mcg [Synthroid 25 Mcg] 50 mcg PO DAILY 02/20/14 [History] Phenytoin Sod Extended 30 mg [Dilantin 30 MG] 200 mg PO BID 02/20/14 [History] Aspirin [[place] Aspirin EC] 81 mg PO DAILY 06/07/17 [History] Lamotrigine [Lamictal] 200 mg PO HS 06/07/17 [History] Metoprolol Succinate 25 mg Xl* [Toprol-Xl 25MG Tablets] 25 mg PO DAILY 06/07/17 [History] Gabapentin 800 mg TID 06/08/19 [History] Hx Tetanus, Diphtheria Vaccination/Date Given: Yes Hx Influenza Vaccination/Date Given: Yes Hx Pneumococcal Vaccination/Date Given: Yes Immunizations Up to Date: Yes Travel Risk - International Travel Have you traveled outside of the country in past 3 weeks: No - Coronavirus Screening Are you exhibiting any of the following symptoms?: No Close contact with a COVID-19 positive Pt in past 14-21 Days: No - Review of Systems Constitutional: Weakness Eyes: No Symptoms Ears, Nose, & Throat: No Symptoms Respiratory: Dyspnea Cardiac: No Symptoms Abdominal/Gastrointestinal: No Symptoms Genitourinary Symptoms: No Symptoms Musculoskeletal: No Symptoms Skin: No Symptoms Neurological: Headache Psychological: No Symptoms Endocrine: No Symptoms Hematologic/Lymphatic: No Symptoms Immunological/Allergic: No Symptoms All Other Systems: Reviewed and Negative - Past Medical History Pertinent Past Medical History: Yes Neurological History: Epilepsy, Migraines ENT History: No Pertinent History Cardiac History: Arrhythmia Respiratory History: No Pertinent History Endocrine Medical History: Hypothyroidism Musculoskeletal History: Osteoarthritis GI Medical History: Ulcer History: No Pertinent History Psycho-Social History: No Pertinent History Female Reproductive Disorders: No Pertinent History Other Medical History: back problems - Past Surgical History Past Surgical History: Yes Neuro Surgical History: No Pertinent History Cardiac: No Pertinent History Respiratory: No Pertinent History Gastrointestinal: No Pertinent History Genitourinary: No Pertinent History Musculoskeletal: Orthopedic Surgery Female Surgical History: Section, Hysterectomy Other Surgical History: MULTIPLE BACK SURGERIES, x2 - Social History Smoking Status: Never smoker Exposure to second hand smoke: Yes Drug Use: none Patient Lives Alone: No - Female History Hx Now: No - Nursing Vital Signs Nursing Vital Signs: Initial Vital Signs Temperature 97.6 F 07/28/20 15:30 Pulse Rate 98 H 07/28/20 15:30 Respiratory Rate 26 H 07/28/20 15:30 Blood Pressure 154/92 07/28/20 15:30 O2 Sat by Pulse Oximetry 97 07/28/20 15:30 Pain Scale Pain Intensity 6 - Physical Exam General Appearance: mild distress, alert, anxiety Eye Exam: PERRL/EOMI, eyes nml inspection Ears, Nose, Throat Exam: hearing grossly normal, normal ENT inspection Neck Exam: normal inspection, non-tender, supple, full range of motion Respiratory Exam: normal breath sounds, lungs clear, respiratory distress, airway intact (Mild), No chest tenderness Cardiovascular/Chest Exam: normal heart sounds, regular rate/rhythm Abdominal/Gastrointestinal Exam: soft, normal bowel sounds, No tenderness Rectal Exam: not done Extremity Exam: non-tender, normal range of motion, normal inspection, normal capillary refill, no calf tenderness, no pedal edema, pelvis stable Neurologic Exam: alert, oriented x 3, cooperative, 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 There are no changes on today's EKG when compared to that EKG that was performed on 07/07/2020) Ordered Tests: Active Orders 24 hr Category Date Time Status EKG-ER Only STAT Care 07/28/20 15:38 Active IV Insertion STAT Care 07/28/20 15:38 Active Pulse Oximetry (ED) STAT Care 07/28/20 15:38 Active CHEST 1 VIEW (PORTABLE) Stat Exams 07/28/20 15:38 Completed CBC W DIFF Stat Lab 07/28/20 16:19 Completed CMP Stat Lab 07/28/20 16:19 Completed D-DIMER QUANTITATIVE Stat Lab 07/28/20 16:19 Completed NT PRO BNP Stat Lab 07/28/20 16:19 Completed PROTIME WITH INR Stat Lab 07/28/20 16:19 Completed TROPONIN Q3H Lab 07/28/20 16:19 Completed TROPONIN Q3H Lab 07/28/20 19:00 Completed TROPONIN Q3H Lab 07/28/20 21:45 Ordered TROPONIN Q3H Lab 07/29/20 00:45 Ordered TROPONIN Q3H Lab 07/29/20 03:45 Ordered Transfer Order Routine Transfer 07/28/20 Ordered Medication Summary Generic Name Dose Route Start Last Admin Trade Name Freq PRN Reason Stop Dose Admin Dexamethasone Sodium Phosphate 4 mg 07/28/20 20:41 Decadron 4 Mg Inj IV 07/28/20 20:42 STAT ONE Enoxaparin Sodium 80 mg 07/28/20 20:40 Enoxaparin Sodium SQ 07/28/20 20:41 STAT ONE Potassium Chloride 20 meq in 100 mls @ 50 mls/hr 07/28/20 17:30 07/28/20 17:31 Potassium Chloride 20 Meq In Water 100ml IV 07/28/20 21:29 50 mls/hr Q2H CRAINA Administration Discontinued Medications Generic Name Dose Route Start Last Admin Trade Name John PRN Reason Stop Dose Admin Lorazepam 0.5 mg 07/28/20 18:57 07/28/20 19:40 Ativan 2 Mg/1 Ml Vial IV 07/28/20 18:58 0.5 mg STAT ONE Administration Lorazepam Confirm 07/28/20 19:39 Ativan 2 Mg/1 Ml Vial Administered 07/28/20 19:40 Dose 2 mg .ROUTE .STK-MED ONE Morphine Sulfate 4 mg 07/28/20 18:29 07/28/20 18:41 Morphine Sulfate 4 Mg Inj IV 07/28/20 18:30 4 mg STAT ONE Administration Morphine Sulfate Confirm 07/28/20 18:39 Morphine Sulfate 4 Mg Inj Administered 07/28/20 18:40 Dose 4 mg .ROUTE .STK-MED ONE Ondansetron HCl 4 mg 07/28/20 18:29 07/28/20 18:41 Zofran 4 Mg/2 Ml Vial IV 07/28/20 18:30 4 mg STAT ONE Administration Ondansetron HCl Confirm 07/28/20 18:38 Zofran 4 Mg/2 Ml Vial Administered 07/28/20 18:39 Dose 4 mg .ROUTE .STK-MED ONE Lab/Rad Data: Laboratory Result Diagrams 07/28/20 16:19 07/28/20 16:19 Laboratory Results 07/28/20 07/28/20 07/28/20 Range/Units 19:06 19:00 16:19 WBC (4.0-10.5) K/mm3 RBC (4.1-5.4) M/mm3 Hgb (12.0-16.0) gm/dl Hct (35-47) % MCV (78-100) fl MCH (26-32) pg MCHC (32-36) g/dl RDW (11.5-14.0) % Plt Count (150-450) K/mm3 Gran % (36.0-66.0) % Eos # (Auto) (0-0.5) Absolute Lymphs (auto) (1.0-4.6) Absolute Monos (auto) (0.0-1.3) Lymphocytes % (24.0-44.0) % Monocytes % (0.0-12.0) % Eosinophils % (0.00-5.0) % Basophils % (0.0-0.4) % Absolute Granulocytes (1.4-6.9) Basophils # (0-0.4) PT (9.95-12.35) SECONDS INR (0.8-3.0) D-Dimer (215-500) ng/mL Sodium (137-145) mmol/L Potassium (3.5-5.1) mmol/L Chloride (98-107) mmol/L Carbon Dioxide (22-30) mmol/L Anion Gap (5-15) MEQ/L BUN (7-17) mg/dL Creatinine (0.52-1.04) mg/dL Estimated GFR ML/MIN Glucose (74-106) mg/dL Calcium (8.4-10.2) mg/dL Total Bilirubin (0.2-1.3) mg/dL AST (14-36) U/L ALT (0-35) U/L Alkaline Phosphatase (38-126) U/L Troponin I < 0.012 < 0.012 (0.000-0.034) ng/mL NT-Pro-B Natriuret Pep (0-900) pg/mL Serum Total Protein (6.3-8.2) g/dL Albumin (3.5-5.0) g/dL SARS-CoV-2 (PCR) POSITIVE A (NEGATIVE) Slides for Path Review 07/28/20 07/28/20 07/28/20 Range/Units 16:19 16:19 16:19 WBC 3.2 L (4.0-10.5) K/mm3 RBC 4.41 (4.1-5.4) M/mm3 Hgb 10.3 L (12.0-16.0) gm/dl Hct 31.9 L (35-47) % MCV 72.3 L (78-100) fl MCH 23.4 L (26-32) pg MCHC 32.3 (32-36) g/dl RDW 18.5 H (11.5-14.0) % Plt Count 233 (150-450) K/mm3 Gran % 65.1 (36.0-66.0) % Eos # (Auto) 0 (0-0.5) Absolute Lymphs (auto) 0.75 L (1.0-4.6) Absolute Monos (auto) 0.36 (0.0-1.3) Lymphocytes % 23.6 L (24.0-44.0) % Monocytes % 11.3 (0.0-12.0) % Eosinophils % 0.0 (0.00-5.0) % Basophils % 0.0 (0.0-0.4) % Absolute Granulocytes 2.07 (1.4-6.9) Basophils # 0 (0-0.4) PT 14.4 H (9.95-12.35) SECONDS INR 1.27 (0.8-3.0) D-Dimer 706 H* (215-500) ng/mL Sodium 127 L (137-145) mmol/L Potassium 2.7 L* (3.5-5.1) mmol/L Chloride 97 L (98-107) mmol/L Carbon Dioxide 20 L (22-30) mmol/L Anion Gap 13.2 (5-15) MEQ/L BUN 10 (7-17) mg/dL Creatinine 0.75 (0.52-1.04) mg/dL Estimated GFR > 60.0 ML/MIN Glucose 116 H (74-106) mg/dL Calcium 8.4 (8.4-10.2) mg/dL Total Bilirubin 0.20 (0.2-1.3) mg/dL AST 35 (14-36) U/L ALT 20 (0-35) U/L Alkaline Phosphatase 146 H (38-126) U/L Troponin I (0.000-0.034) ng/mL NT-Pro-B Natriuret Pep 76.3 (0-900) pg/mL Serum Total Protein 7.5 (6.3-8.2) g/dL Albumin 3.9 (3.5-5.0) g/dL SARS-CoV-2 (PCR) (NEGATIVE) Slides for Path Review YES - Progress Progress: improved, re-examined Air Movement: fair Progress Note: 07/28/20 20:26 Chest x-ray shows no acute cardiopulmonary process. Medical decision making: This patient has shortness of air despite fairly normal oxygenation levels of 98% on room air. She has mildly elevated D-dimer she has hypokalemia with a potassium level 2.7. Our plan was to bring her in the hospital but before we did that we performed a COVID-19 test which came back positive. I spoke with Dr. Bustamante our [facility] hospitalist. He agrees with bringing her into the hospital and anticoagulating her and performing a VQ scan tomorrow. We will replace her potassium as well and repeat labs in the morning. We will place her on remdesivir and give her a dose of Decadron. Blood Culture(s) Obtained: No Antibiotics given: No Discussed with Dr.: Other (Dr. Ruslan Bustamante) Counseled pt/family regarding: lab results, diagnosis, rad results - Departure Departure Disposition: In-patient Admission Clinical Impression: COVID-19 virus infection, Shortness of breath, Hypokalemia, Weakness Condition: Stable Critical Care Time: Yes Critical Care Time(excluding separately billable procedures): Critical 30-74 mins Referrals: LUCI ANG [Primary Care Provider] -
[2020-07-28 16:21] LABS: Absolute Neutrophil Ct (ANC) 2.07 (1.4-6.9); Basophil (Absolute #) 0 (0-0.4); Eosinophil (Absolute #) 0 (0-0.5); Hematocrit 31.9 % (35-47); Hemoglobin 10.3 gm/dl (12.0-16.0); Lymphocyte (Absolute #) 0.75 (1.0-4.6); Lymphocytes % 23.6 % (24.0-44.0); Mean Cell Volume 72.3 fl (78-100); Mean Corpuscular Hemoglobin 23.4 pg (26-32); Mean Corpuscular Hgb Concent. 32.3 g/dl (32-36); Monocyte (Absolute #) 0.36 (0.0-1.3); Monocytes % 11.3 % (0.0-12.0); Neutrophil % 65.1 % (36.0-66.0); Platelet Count 233 K/mm3 (150-450); Red Blood Count 4.41 M/mm3 (4.1-5.4); Red Cell Distribution Width 18.5 % (11.5-14.0); White Blood Count 3.2 K/mm3 (4.0-10.5)
--- NOTE | 2020-07-28 16:21 | XRAY ---
Indication: Short of breath. Comparison: July 07, 2020. Portable chest again demonstrates normal heart and lungs. Bony thorax intact again with right humeral head heterotopic ossifications. No new/acute findings.
[2020-07-28 16:23] LABS: INR 1.27 (0.8-3.0); PROTIME 14.4 SECONDS (9.95-12.35)
[2020-07-28 16:37] LABS: ALBUMIN 3.9 g/dL (3.5-5.0); ALKALINE PHOSPHATASE 146 U/L (38-126); ANION GAP 13.2 MEQ/L (5-15); BLOOD UREA NITROGEN 10 mg/dL (7-17); CHLORIDE 97 mmol/L (98-107); Calcium 8.4 mg/dL (8.4-10.2); Carbon Dioxide 20 mmol/L (22-30); Creatinine 1 0.75 mg/dL (0.52-1.04); EST GLOMERULAR FILTRATION RATE > 60.0 ML/MIN; Glucose 116 mg/dL (74-106); NT PRO BNP 76.3 pg/mL (0-900); SGOT/AST 35 U/L (14-36); SGPT/ALT 20 U/L (0-35); SODIUM 127 mmol/L (137-145); Total Protein 7.5 g/dL (6.3-8.2)
[2020-07-28 16:39] LABS: Potassium 2.7 mmol/L (3.5-5.1)
[2020-07-28 17:03] LABS: Slide Review 1 YES
[2020-07-28] MEDS ORDERED: POTASSIUM CHLORIDE 20 mEq IN WATER 100ML 100 ML IV ONE ×2 (17:30→20:45)
[2020-07-28] MEDS: POTASSIUM CHLORIDE 20 mEq IN WATER 100ML 20 MEQ/100 ML BAG IV SCH ×2 (17:31→20:50)
[2020-07-28] MEDS ORDERED: Zofran 4 MG/2 ML VIAL IV ONE (18:29)
[2020-07-28] MEDS ORDERED: MORPHINE SULFATE 4 MG INJ IV ONE (18:29)
[2020-07-28] MEDS ORDERED: Zofran 4 MG/2 ML VIAL ONE (18:38)
[2020-07-28] MEDS ORDERED: MORPHINE SULFATE 4 MG INJ ONE (18:39)
[2020-07-28] MEDS ORDERED: Ativan 2 MG/1 ML VIAL IV ONE (18:57)
[2020-07-28] MEDS ORDERED: Ativan 2 MG/1 ML VIAL ONE (19:39)
[2020-07-28] MEDS ORDERED: ENOXAPARIN SODIUM SQ ONE ×2 (20:40→20:45)
[2020-07-28] MEDS ORDERED: Decadron 4 MG INJ IV ONE (20:41)
[2020-07-28] MEDS ORDERED: Decadron 4 MG INJ ONE (20:45)
[2020-07-28] MEDS ORDERED: REMDESIVIR 200 MG in Sodium Chloride 0.9% 250 ML 250 ML IV ONE (21:05)
[2020-07-28] MEDS ORDERED: Ativan 2 MG/1 ML VIAL IV PRN (21:05)
[2020-07-28] MEDS ORDERED: Zofran 4 MG/2 ML VIAL IV PRN (21:05)
[2020-07-28] MEDS ORDERED: REMDESIVIR 100 MG in Sodium Chloride 0.9% 100 ML IVPB 100 ML IV SCH (21:05)
[2020-07-28] MEDS: Sodium Chloride 0.9% 1000 ML 1,000 ML IV SCH (21:34)
[2020-07-28] MEDS ORDERED: Sodium Chloride 0.9% 250 ML 250 ML IV ONE (21:37)
[2020-07-28] MEDS ORDERED: REMDESIVIR IV ONE (21:37)
[2020-07-28] MEDS ORDERED: Klor Con 10 MEQ PO SCH (22:00)
[2020-07-28] MEDS ORDERED: ENOXAPARIN SODIUM SQ SCH (22:00)
[2020-07-28] MEDS: Decadron 4 MG INJ IV SCH (22:41)
[2020-07-28] MEDS ORDERED: Dilantin 100 MG ONE (22:53)
[2020-07-28] MEDS ORDERED: Toprol-Xl 25MG Tablets PO SCH (23:00)
[2020-07-28] MEDS ORDERED: ELAVIL 25 MG PO SCH ×2 (23:00)
[2020-07-28] MEDS ORDERED: Dilantin 100 MG PO SCH (23:00)
[2020-07-29] MEDS: TYLENOL 325 MG PO PRN ×3 (00:21→16:26)
[2020-07-29] MEDS: MORPHINE SULFATE 4 MG INJ IV PRN ×3 (01:43→17:44)
[2020-07-29 05:28] LABS: Absolute Neutrophil Ct (ANC) 0.97 (1.4-6.9); Basophil (Absolute #) 0 (0-0.4); Eosinophil (Absolute #) 0 (0-0.5); Hematocrit 27.6 % (35-47); Hemoglobin 8.9 gm/dl (12.0-16.0); Lymphocyte (Absolute #) 0.71 (1.0-4.6); Mean Cell Volume 73.4 fl (78-100); Mean Corpuscular Hemoglobin 23.7 pg (26-32); Mean Corpuscular Hgb Concent. 32.2 g/dl (32-36); Mean Platelet Volume 11.1 fl (7.5-11.0); Monocyte (Absolute #) 0.29 (0.0-1.3); Monocytes % 14.7 % (0.0-12.0); Neutrophil % 49.3 % (36.0-66.0); Platelet Count 212 K/mm3 (150-450); Red Blood Count 3.76 M/mm3 (4.1-5.4); Red Cell Distribution Width 18.7 % (11.5-14.0)
[2020-07-29 06:11] LABS: ANION GAP 11.6 MEQ/L (5-15); BLOOD UREA NITROGEN 11 mg/dL (7-17); CHLORIDE 104 mmol/L (98-107); Calcium 7.7 mg/dL (8.4-10.2); EST GLOMERULAR FILTRATION RATE > 60.0 ML/MIN; Glucose 111 mg/dL (74-106); SODIUM 128 mmol/L (137-145)
[2020-07-29 06:19] LABS: Carbon Dioxide 15 mmol/L (22-30)
[2020-07-29 06:20] LABS: Potassium 3.7 mmol/L (3.5-5.1)
[2020-07-29] MEDS: ENOXAPARIN SODIUM SQ SCH (10:48)
[2020-07-29] MEDS: Decadron 4 MG INJ IV SCH ×2 (10:49→21:09)
[2020-07-29] MEDS ORDERED: MEDICATION INTERVENTION MC SCH (11:00)
--- NOTE | 2020-07-29 11:36 | HP ---
CHIEF COMPLAINT: Feeling bad, earache, vertigo, nausea for five days. HISTORY OF PRESENT ILLNESS: The patient came with those complaints to the emergency room and they ran a COVID test which was positive. She said she has just been nauseated, unable to take fluids well. She has had no cough, maybe a little shortness of breath on exertion. She said she had some ear pressure. She has been dizzy for some time. When she gets up too fast she passes out. She has had vertigo for years. She said she requires transfusions occasionally and she goes to [facility] because she has rH negative AB blood, I think. Long history of seizures. She is on Dilantin. Chronic back pain. She is on Nucynta and gets injections from a pain specialist. She said she presently has a headache that has been there for two days and just weak and a little short of breath. She does not feel herself. MEDICATIONS: Amitriptyline 10 mg in the morning and 50 in the evening, Synthroid 25 q.d., Dilantin 30 in the morning and 200 twice a day, aspirin 81 q.d., Lamictal 200 h.s., metoprolol 25 q.d., gabapentin 800 two times a day. ALLERGIES: CODEINE. PAROXETINE. IODINATED CONTRAST MEDIA. PAST MEDICAL HISTORY: Hypertension, hypothyroidism. PAST SURGICAL HISTORY: Hysterectomy. section. Three back surgeries. REVIEW OF SYSTEMS: HEENT: She has a headache right now and ear pain both of which unusual. Eyes no problems seeing. Taste is okay. RESPIRATORY: Some slight shortness of breath on exertion. CVS: No chest pain. No heart attacks. Mild hypertension. ABDOMEN: Nausea for five days and had clear liquids for four or five days. MUSCULOSKELETAL: Just kind of achy all over. SKIN: The patient said she had kind of an electric feelings throughout her body from time to time, that has been going on for years and no one has found a reason for it. ENDOCRINE: No history of diabetes. She does have hypothyroidism and some type of reoccurring anemia. BACK/EXTREMITIES: Chronic back pain secondary to osteoarthritis treated by a pain specialist. She is very happy with the treatment she has gotten from him. SOCIAL HISTORY: Never smoked. Ex- smoked. He several years ago. No history of abusive drug use. I was her physician for years. She was never inappropriate with narcotics. PHYSICAL EXAMINATION: The patient is alert, anxious, pleasant, understands me and is talking a lot about current events. VITAL SIGNS: Temperature 97F, pulse 70, respirations 14, blood pressure 130/70. O2 saturation 95%. HEENT: Her ear drums are normal. Throat clear. NECK: No nodes. CHEST: Clear. CVS: No murmurs or gallops. ABDOMEN: Soft. No masses or organomegaly. EXTREMITIES: Normal. No edema. Normal color. Good range of motion. IMPRESSION: 1) The patient has COVID which is giving her gastritis. 2) She has ear pain secondary to COVID, facial pain. 3) She has chronic anxiety. 4) History of seizures. 5) It sounds like she has orthostatic hypotension so I will back off of any blood pressure medicines first day here and the hydrochlorothiazide especially I believe she is on that because of hypokalemia. PLAN: Start on Decadron, Remdesivir and anticoagulation. The D-dimer was minimally elevated and has already gone down this morning. She is at low risk for any type of pulmonary embolism, probably this is all from COVID. Her hemoglobin today is 10.3, white count 3.2. I believe her chest x-ray was normal. PROGNOSIS: Good.
[2020-07-29] MEDS: Neurontin 400 MG PO SCH ×3 (12:10→21:11)
[2020-07-29] MEDS: Reglan 10 MG PO SCH ×2 (12:10→16:02)
[2020-07-29] MEDS: Dilantin 100 MG PO SCH ×3 (12:10→21:10)
[2020-07-29] MEDS: Klor Con 10 MEQ PO SCH ×2 (12:15→21:11)
[2020-07-29] MEDS: SYNTHROID 50 MCG PO SCH (12:15)
[2020-07-29] MEDS ORDERED: Dilantin 100 MG PO SCH (15:00)
[2020-07-29] MEDS: Sodium Chloride 0.9% 1000 ML 1,000 ML IV SCH (16:25)
[2020-07-29] MEDS: ANTIVERT 25 MG PO PRN (17:53)
[2020-07-29] MEDS: lamICTAL 100MG TABLET PO SCH (21:11)
[2020-07-29] MEDS: REMDESIVIR 100 MG in Sodium Chloride 0.9% 100 ML IVPB 100 ML IV SCH (21:13)
[2020-07-29] MEDS ORDERED: NON-FORMULARY ITEM (Tapentadol Hcl [Nucynta Er] 200 MG) PO SCH (22:00)
[2020-07-29] MEDS ORDERED: ELAVIL 25 MG PO SCH (22:00)
[2020-07-29] MEDS ORDERED: ELAVIL 10 MG PO SCH (22:00)
[2020-07-30] MEDS: ANTIVERT 25 MG PO PRN ×2 (04:32→14:49)
[2020-07-30] MEDS: TYLENOL 325 MG PO PRN (05:07)
[2020-07-30] MEDS: MORPHINE SULFATE 4 MG INJ IV PRN ×2 (06:16→20:33)
[2020-07-30 06:30] LABS: Potassium 4.1 mmol/L (3.5-5.1)
[2020-07-30 07:01] LABS: Hematocrit 28.6 % (35-47); Hemoglobin 8.9 gm/dl (12.0-16.0); Mean Cell Volume 74.3 fl (78-100); Mean Corpuscular Hemoglobin 23.1 pg (26-32); Mean Corpuscular Hgb Concent. 31.1 g/dl (32-36); Mean Platelet Volume 11.8 fl (7.5-11.0); Platelet Count 251 K/mm3 (150-450); Red Blood Count 3.85 M/mm3 (4.1-5.4); Red Cell Distribution Width 18.8 % (11.5-14.0); White Blood Count 2.8 K/mm3 (4.0-10.5)
[2020-07-30] MEDS: Reglan 10 MG PO SCH ×3 (07:51→15:58)
[2020-07-30 08:49] LABS: Slide Review YES
[2020-07-30] MEDS: SYNTHROID 50 MCG PO SCH (09:00)
[2020-07-30] MEDS: Dilantin 100 MG PO SCH ×3 (09:00→21:33)
[2020-07-30] MEDS: Decadron 4 MG INJ IV SCH ×2 (09:00→21:32)
[2020-07-30] MEDS: Neurontin 400 MG PO SCH ×3 (09:00→21:33)
[2020-07-30] MEDS: ENOXAPARIN SODIUM SQ SCH (09:00)
[2020-07-30] MEDS: Klor Con 10 MEQ PO SCH ×2 (09:00→21:33)
[2020-07-30] MEDS ORDERED: SYNTHROID 25 MCG PO SCH (10:00)
[2020-07-30] MEDS: Sodium Chloride 0.9% 1000 ML 1,000 ML IV SCH (11:10)
[2020-07-30] MEDS: FEOSOL 325 MG PO SCH (11:57)
[2020-07-30] MEDS ORDERED: Venofer 100 MG/5 ML*** 200 MG in Sodium Chloride 0.9% 100 ML IVPB 100 ML IV SCH (15:00)
--- NOTE | 2020-07-30 19:59 | XRAY ---
Indication: Subdural hematoma. Status post fall 2 weeks. Positive Covid 19. Multiple contiguous axial images obtained through the head without contrast. Comparison: October 10, 2005. Age-appropriate global atrophy and moderate periventricular degenerative microvascular ischemia bilaterally. No acute intracranial hemorrhage, abnormal extra-axial fluid collection, or mass effect. Fourth ventricle is midline without hydrocephalus. Bony calvarium intact. Visualized paranasal sinuses and mastoid air cells are clear. Impression: Nonacute senile brain. Comment: Preliminary interpretation was made by [facility]. No critical discrepancy.
[2020-07-30] MEDS: lamICTAL 100MG TABLET PO SCH (21:32)
[2020-07-30] MEDS: REMDESIVIR 100 MG in Sodium Chloride 0.9% 100 ML IVPB 100 ML IV SCH (21:32)
[2020-07-31] MEDS: TYLENOL 325 MG PO PRN (00:10)
[2020-07-31] MEDS: MORPHINE SULFATE 4 MG INJ IV PRN (04:27)
[2020-07-31] MEDS: Reglan 10 MG PO SCH (07:39)
[2020-07-31] MEDS: Klor Con 10 MEQ PO SCH (09:08)
[2020-07-31] MEDS: Decadron 4 MG INJ IV SCH (09:09)
[2020-07-31] MEDS: Dilantin 100 MG PO SCH (09:09)
[2020-07-31] MEDS: SYNTHROID 50 MCG PO SCH (09:09)
[2020-07-31] MEDS: FEOSOL 325 MG PO SCH (09:32)
[2020-07-31] MEDS: Neurontin 400 MG PO SCH (09:32)
[2020-07-31 09:43] VITALS: O2SAT 97
[2020-07-31 11:46] VITALS: BP 146/79; PULSE 82
--- NOTE | 2020-08-01 12:03 | DS ---
ADMISSION DIAGNOSES: 1) COVID. 2) Dehydration. 3) Hypokalemia. 4) Gastritis. 5) Shortness of breath. 6) Weakness. 7) Iron deficiency anemia. DISCHARGE DIAGNOSES: 1) COVID. 2) DEHYDRATION. 3) HYPOKALEMIA. 4) GASTRITIS. 5) SHORTNESS OF BREATH. 6) WEAKNESS. 7) IRON DEFICIENCY ANEMIA. HOSPITAL COURSE: The patient came in after she could not keep anything down. She was lightheaded, weak, could not walk. Her D-dimer was elevated. Her chest x-ray was okay. She had a CT of the head where she was having severe headache and has a history of severe fall and hitting her head a week ago. Dilantin level was 0. She states takes one a day because it makes her sick and she has seizures that is a little debatable. EEG's in the past but seems like she has had rare seizures. She does have some lightheadedness and vertigo when standing up which is long standing. She was treated with Remdesivir, Decadron and Antivert. We gave her some IV iron since she really does not do well taking p.o. iron. She apparently has been anemic for a long time. She had a GI scope up at [facility] a month or two ago when she fell down and was found to be anemic. She is going to continue at home on amitriptyline 200 h.s. for sleep, gabapentin 800 t.i.d., Lamictal 100 h.s., Synthroid 25 mg two q.d., Reglan 10 t.i.d. before meals if she is nauseated. We discontinued the metoprolol because she is not hypotensive and some of her lightheadedness was definitely orthostatic and improving here. Her Dilantin level was low but I think she only takes one pill a day instead of three times a day and she is not having any active seizures while she was on the other medications. She is also on Nucynta Extended Release 200 twice a day. Initially the patient had a lot of facial pain, ear pain and weakness. Ear drums are normal. No signs of fluid. Face was tender to touch over the sinus. Her white count was 2.8. Her hemoglobin 8.9 with microcytic hypochromic cells. I did not do an iron level but did give her some IV iron because she will not take iron. She has some at home and did not even have it on her list. It makes her nauseated, she said. On 07/29/2020, her D-dimer was 584. Her white count was 2,000, hemoglobin 8.9. Potassium on 07/29/2020 was 3.3 and she did get some potassium in her IV and p.o. potassium. I think this is from diarrhea and vomiting and this will stop as her GI symptoms have all correct themselves. Again, her CT scan was normal. No signs of subdural or epidural bleeds. This morning on discharge she feel great. She is dressed. She is ready to go. Her headache is better. Ears are better. She is eating without problems the last few days. She has had no types of seizures or lightheadedness in 48 hours. She is well hydrated. PLAN: The patient will be discharged on her home medications to follow up with her family doctor to follow up on her hemoglobin, seizures. Her COVID seems to be fading into the past. She is to isolate herself for ten days from the first COVID test which apparently when she was admitted here on 08/02/2020. I have known her for many years and she seems to be back to her normal slightly manic self. PROGNOSIS: Patterson to be good.
== END 2020-07-31 11:35 | disposition home health service (06) | DRG 179 ==
LOC: ED 15:30 → MED SURG 21:00
PROVIDERS: ADMIT Family Medicine; ATTEND Family Medicine
DX: U07.1 COVID-19 (principal); I10 Essential (primary) hypertension; R42 Dizziness and giddiness; E03.9 Hypothyroidism, unspecified; E86.0 Dehydration; E87.6 Hypokalemia; K29.70 Gastritis, unspecified, without bleeding; R06.02 Shortness of breath; F41.9 Anxiety disorder, unspecified; R53.1 Weakness; D50.9 Iron deficiency anemia, unspecified; R51.9 Headache, unspecified; G40.909 Epilepsy, unspecified, not intractable, without status epilepticus; H92.03 Otalgia, bilateral
CPT/HCPCS: 36000; 36415; 70450; 71045; 80048; 80051; 80053; 80185; 83880; 84132; 84484; 85025; 85027; 85379; 85610; 93005; 94760; 94762; 96365; 96366; 96372; 96374; 96375; 99285; 99291; U0003; J1100; J1650; J1756; J2060; J2270; J2405; J3480; A9270-GY

== ENCOUNTER 2020-09-24 16:56 | Inpatient (IN) | payer MEDICARE ==
[2020-09-24] MEDS ORDERED: Sodium Chloride 0.9% 1000 ML 1,000 ML IV SCH (17:30)
--- NOTE | 2020-09-24 17:46 | ERPHSYRPT ---
- History of Present Illness Time Seen by Provider: 09/24/20 17:44 Source: patient Exam Limitations: no limitations Patient Subjective Stated Complaint: pt here for increase sob and cough since sat, she has hx of covid in jul, and has not felt well since. Triage Nursing Assessment: pt alert, walked in, face mask in place, resp labored at rest, no edema noted Physician History: pt here for increase sob and cough since sat, she has hx of covid in jul, and has not felt well since. Denies any fever but complaining of body ache. Timing/Duration: day(s) (2-3 days) Severity: mild Associated Symptoms: cough, chills, headaches, malaise, weakness Allergies/Adverse Reactions: Iodinated Contrast Media [IV Dye, Iodine Containing Contrast ] Allergy (Severe, Verified 09/24/20 17:02) Anaphylactic Reaction paroxetine HCl [From Paxil] Allergy (Severe, Verified 09/24/20 17:02) Vomiting Causes nervousness and severe vomiting codeine Allergy (Mild, Verified 09/24/20 17:02) Rash Sulfa (Sulfonamide Antibiotics) [Sulfa(Sulfonamide Antibiotics)] Allergy (Mild, Verified 09/24/20 17:02) Rash Home Medications: Amitriptyline HCl 10 mg [Elavil 10 mg] 200 mg PO HS 02/20/14 [History] Levothyroxine Sodium 25 Mcg [Synthroid 25 Mcg] 50 mcg PO DAILY 02/20/14 [History] Lamotrigine [Lamictal] 100 mg PO HS 06/07/17 [History] Gabapentin 800 mg PO TID 06/08/19 [History] Phenytoin Sod Extended 100 mg* [Dilantin 100 MG] 100 mg PO TID 07/28/20 [History] Metoclopramide HCl 10 mg [Reglan 10 MG] 10 mg PO TIDAC 07/29/20 [History] Hx Tetanus, Diphtheria Vaccination/Date Given: Yes Hx Influenza Vaccination/Date Given: Yes Hx Pneumococcal Vaccination/Date Given: Yes Immunizations Up to Date: Yes Travel Risk - International Travel Have you traveled outside of the country in past 3 weeks: No - Coronavirus Screening Are you exhibiting any of the following symptoms?: Yes Symptoms: Cough: New Onset, Shortness of Breath Close contact with a COVID-19 positive Pt in past 14-21 Days: No - Review of Systems Constitutional: Chills, Malaise, Weakness, No Fever Eyes: No Symptoms Ears, Nose, & Throat: No Symptoms Respiratory: Dyspnea on Exertion (TUBBS), No Cough, No Dyspnea Cardiac: Chest Pain, No Edema, No Syncope Abdominal/Gastrointestinal: No Abdominal Pain, No Nausea, No Vomiting, No Diarrhea Genitourinary Symptoms: No Dysuria Musculoskeletal: No Back Pain, No Neck Pain Skin: No Rash Neurological: No Dizziness, No Focal Weakness, No Sensory Changes Psychological: No Symptoms Endocrine: No Symptoms All Other Systems: Reviewed and Negative - Past Medical History Pertinent Past Medical History: Yes Neurological History: Epilepsy, Migraines ENT History: No Pertinent History Cardiac History: Arrhythmia Respiratory History: No Pertinent History Endocrine Medical History: Hypothyroidism Musculoskeletal History: Osteoarthritis GI Medical History: Ulcer History: No Pertinent History Psycho-Social History: No Pertinent History Female Reproductive Disorders: No Pertinent History Other Medical History: back problems - Past Surgical History Past Surgical History: Yes Neuro Surgical History: No Pertinent History Cardiac: No Pertinent History Respiratory: No Pertinent History Gastrointestinal: Appendectomy Genitourinary: No Pertinent History Musculoskeletal: Orthopedic Surgery Female Surgical History: Section, Hysterectomy Other Surgical History: MULTIPLE BACK SURGERIES, x2 - Social History Smoking Status: Never smoker Exposure to second hand smoke: Yes (Occasional) Drug Use: none Patient Lives Alone: No - Female History Hx Last Menstrual Period: post Hx Now: No - Nursing Vital Signs Nursing Vital Signs: Initial Vital Signs Respiratory Rate 28 H 09/24/20 17:05 O2 Sat by Pulse Oximetry 99 09/24/20 17:05 Pain Scale Pain Intensity 8 - Physical Exam General Appearance: no apparent distress, alert Eye Exam: PERRL/EOMI, eyes nml inspection Ears, Nose, Throat Exam: normal ENT inspection, TMs normal, pharynx normal, moist mucous membranes Neck Exam: normal inspection, non-tender, supple, full range of motion Respiratory Exam: diminished breath sounds, crackles/rales, No respiratory distress Cardiovascular Exam: regular rate/rhythm, normal heart sounds, normal peripheral pulses Gastrointestinal/Abdomen Exam: soft, normal bowel sounds, No tenderness, No mass Back Exam: normal inspection, normal range of motion, No CVA tenderness, No vertebral tenderness Extremity Exam: normal inspection, normal range of motion, pelvis stable Neurologic Exam: alert, oriented x 3, cooperative, normal mood/affect, nml cerebellar function, nml station & gait, sensation nml, No motor deficits Skin Exam: normal color, warm, dry, No rash Lymphatic Exam: No adenopathy SpO2: 99 - Course Nursing assessment & vital signs reviewed: Yes - Radiology Exams Chest X-ray Interpretation: Reviewed by me Ordered Tests: Active Orders 24 hr Category Date Time Status Channel Cementer Outsole Machine STAT Care 09/24/20 18:50 Active IV Insertion STAT Care 09/24/20 18:06 Active Isolation, Initiate & Maintain STAT Care 09/24/20 17:17 Active Isolation, Initiate & Maintain STAT Care 09/24/20 17:58 Active CHEST 1 VIEW (PORTABLE) Stat Exams 09/24/20 17:20 Completed CBC Stat Lab 09/24/20 17:51 Completed CMP Stat Lab 09/24/20 17:51 Completed D-DIMER QUANTITATIVE Stat Lab 09/24/20 17:51 Completed LDH-LACTATE DEHYDROGENASE Stat Lab 09/24/20 17:51 Completed PROTIME WITH INR Stat Lab 09/24/20 17:51 Completed TROPONIN Stat Lab 09/24/20 17:51 Completed Medication Summary Generic Name Dose Route Start Last Admin Trade Name Freq PRN Reason Stop Dose Admin Sodium Chloride 1,000 mls @ 50 mls/hr 09/24/20 17:30 09/24/20 18:11 Sodium Chloride 0.9% 1000 Ml IV 10/24/20 17:29 50 mls/hr .Q20H CARINA Administration Potassium Chloride 20 meq in 100 mls @ 50 mls/hr 09/24/20 18:36 09/24/20 18:43 Potassium Chloride 20 Meq In Water 100ml IV 09/24/20 20:35 50 mls/hr STAT ONE Administration Discontinued Medications Generic Name Dose Route Start Last Admin Trade Name Freq PRN Reason Stop Dose Admin Ceftriaxone Sodium/Dextrose 1 g in 50 mls @ 100 mls/hr 09/24/20 17:57 09/24/20 18:48 Rocephin 1 Gm-D5w 50 Ml Bag IV 09/24/20 18:26 Infused STAT ONE Infusion Azithromycin 500 mg in 250 mls @ 250 mls/hr 09/24/20 17:57 Zithromax 500 Mg/ 250 Ml Nacl Premix IV 09/24/20 18:56 STAT ONE Ceftriaxone Sodium/Dextrose Confirm 09/24/20 18:08 Rocephin 1 Gm-D5w 50 Ml Bag Administered 09/24/20 18:09 Dose 1 g in 50 mls @ ud IV .STK-MED ONE Azithromycin Confirm 09/24/20 18:34 Zithromax 500 Mg/ 250 Ml Nacl Premix Administered 09/24/20 18:35 Dose 500 mg in 250 mls @ ud IV .STK-MED ONE Potassium Chloride Confirm 09/24/20 18:40 Potassium Chloride 20 Meq In Water 100ml Administered 09/24/20 18:41 Dose 100 mls @ ud IV .STK-MED ONE Ketorolac Tromethamine 30 mg 09/24/20 18:48 09/24/20 18:57 Toradol 30 Mg Injection IV 09/24/20 18:49 30 mg STAT ONE Administration Ketorolac Tromethamine Confirm 09/24/20 18:52 Toradol 30 Mg Injection Administered 09/24/20 18:53 Dose 30 mg .ROUTE .STK-MED ONE Lab/Rad Data: Laboratory Result Diagrams 09/24/20 17:51 09/24/20 17:51 Laboratory Results 09/24/20 09/24/20 09/24/20 Range/Units 17:51 17:51 17:51 WBC 30.0 H* (4.0-10.5) K/mm3 RBC 3.31 L (4.1-5.4) M/mm3 Hgb 7.5 L (12.0-16.0) gm/dl Hct 24.4 L (35-47) % MCV 73.7 L (78-100) fl MCH 22.7 L (26-32) pg MCHC 30.7 L (32-36) g/dl RDW 19.7 H (11.5-14.0) % Plt Count 472 H (150-450) K/mm3 MPV 10.5 (7.5-11.0) fl PT 19.0 H (9.95-12.35) SECONDS INR 1.67 (0.8-3.0) D-Dimer 2126 H* (215-500) ng/mL Sodium 132 L (137-145) mmol/L Potassium 2.9 L* (3.5-5.1) mmol/L Chloride 97 L (98-107) mmol/L Carbon Dioxide 20 L (22-30) mmol/L Anion Gap 17.5 H (5-15) MEQ/L BUN 19 H (7-17) mg/dL Creatinine 1.17 H (0.52-1.04) mg/dL Estimated GFR 49.7 ML/MIN Glucose 109 H (74-106) mg/dL Calcium 8.6 (8.4-10.2) mg/dL Total Bilirubin 0.10 L (0.2-1.3) mg/dL AST 18 (14-36) U/L ALT 14 (0-35) U/L Alkaline Phosphatase 139 H (38-126) U/L Lactate Dehydrogenase 136 (120-246) U/L Troponin I < 0.012 (0.000-0.034) ng/mL Serum Total Protein 7.1 (6.3-8.2) g/dL Albumin 3.5 (3.5-5.0) g/dL - Progress Progress: unchanged Discussed with Dr.: Other (Dr Landy Bustamante) Will see patient in: hospital (full admit) Counseled pt/family regarding: diagnosis - Departure Departure Disposition: In-patient Admission Clinical Impression: Pneumonia due to COVID-19 virus Condition: Fair Critical Care Time: Yes Critical Care Time(excluding separately billable procedures): Critical 30-74 mins Referrals: LUCI ANG [Primary Care Provider] -
[2020-09-24 17:53] LABS: Hematocrit 24.4 % (35-47); Hemoglobin 7.5 gm/dl (12.0-16.0); Mean Cell Volume 73.7 fl (78-100); Mean Corpuscular Hemoglobin 22.7 pg (26-32); Mean Corpuscular Hgb Concent. 30.7 g/dl (32-36); Mean Platelet Volume 10.5 fl (7.5-11.0); Platelet Count 472 K/mm3 (150-450); Red Blood Count 3.31 M/mm3 (4.1-5.4); Red Cell Distribution Width 19.7 % (11.5-14.0)
[2020-09-24] MEDS ORDERED: ROCEPHIN 1 Gm-D5w 50 ml Bag** 1 G/50 ML IVPB IV ONE ×2 (17:57→18:08)
[2020-09-24 18:18] LABS: INR 1.67 (0.8-3.0)
[2020-09-24 18:34] LABS: ALBUMIN 3.5 g/dL (3.5-5.0); ALKALINE PHOSPHATASE 139 U/L (38-126); ANION GAP 17.5 MEQ/L (5-15); BLOOD UREA NITROGEN 19 mg/dL (7-17); CHLORIDE 97 mmol/L (98-107); Calcium 8.6 mg/dL (8.4-10.2); Carbon Dioxide 20 mmol/L (22-30); Creatinine 1 1.17 mg/dL (0.52-1.04); EST GLOMERULAR FILTRATION RATE 49.7 ML/MIN; Glucose 109 mg/dL (74-106); LDH-LACTATE DEHYDROGENASE 136 U/L (120-246); SGOT/AST 18 U/L (14-36); SGPT/ALT 14 U/L (0-35); SODIUM 132 mmol/L (137-145); TROPONIN < 0.012 ng/mL (0.000-0.034); Total Protein 7.1 g/dL (6.3-8.2)
[2020-09-24] MEDS ORDERED: Zithromax 500 MG/ 250 ML NaCl Premix 500 MG/250 ML IVPB IV ONE (18:34)
[2020-09-24 18:35] LABS: Potassium 2.9 mmol/L (3.5-5.1)
[2020-09-24] MEDS ORDERED: POTASSIUM CHLORIDE 20 mEq IN WATER 100ML 20 MEQ/100 ML BAG IV ONE (18:36)
[2020-09-24] MEDS: Zithromax 500 MG/ 250 ML NaCl Premix 500 MG/250 ML IVPB IV ONE ×2 (18:36→20:47)
[2020-09-24] MEDS ORDERED: POTASSIUM CHLORIDE 20 mEq IN WATER 100ML 100 ML IV ONE (18:40)
[2020-09-24] MEDS ORDERED: TORAdol 30 mg Injection IV ONE (18:48)
[2020-09-24] MEDS ORDERED: TORAdol 30 mg Injection ONE (18:52)
--- NOTE | 2020-09-24 18:55 | XRAY ---
Indication: Short of breath. History of Covid 19 infection July 2020. Comparison: July 28, 2020. Portable chest demonstrates new large focus left lower lobe consolidating airspace disease. Remaining heart and right lung unremarkable. Bony thorax remains intact.
[2020-09-24] MEDS ORDERED: VENTOLIN COMMON CANISTER IH PRN (19:58)
[2020-09-24] MEDS ORDERED: ENOXAPARIN SODIUM SQ SCH (19:58)
[2020-09-24] MEDS: Neurontin 400 MG PO SCH (21:11)
[2020-09-24] MEDS: lamICTAL 100MG TABLET PO SCH (21:12)
[2020-09-24] MEDS: Ativan 1 MG PO PRN (21:12)
[2020-09-24] MEDS: Dilantin 100 MG PO SCH (21:12)
[2020-09-24] MEDS: MORPHINE SULFATE 10 MG/ML SQ PRN (21:12)
[2020-09-24] MEDS ORDERED: ENOXAPARIN SODIUM SQ ONE (21:23)
[2020-09-24] MEDS: Pepcid 20 MG VIAL IV SCH (21:33)
[2020-09-24] MEDS: TYLENOL 325 MG PO PRN (21:39)
[2020-09-25 06:27] LABS: Hematocrit 22.7 % (35-47); Hemoglobin 7.1 gm/dl (12.0-16.0); Mean Cell Volume 73.9 fl (78-100); Mean Corpuscular Hemoglobin 23.1 pg (26-32); Mean Corpuscular Hgb Concent. 31.3 g/dl (32-36); Mean Platelet Volume 10.1 fl (7.5-11.0); Platelet Count 428 K/mm3 (150-450); Red Blood Count 3.07 M/mm3 (4.1-5.4); White Blood Count 19.2 K/mm3 (4.0-10.5)
[2020-09-25 06:34] LABS: Calcium 8.1 mg/dL (8.4-10.2); Creatinine 1 1.16 mg/dL (0.52-1.04); EST GLOMERULAR FILTRATION RATE 50.1 ML/MIN
[2020-09-25 06:36] LABS: Potassium 2.9 mmol/L (3.5-5.1)
[2020-09-25] MEDS ORDERED: POTASSIUM CHLORIDE 20 mEq IN WATER 100ML 20 MEQ/100 ML BAG IV ONE (06:41)
[2020-09-25] MEDS: Reglan 10 MG PO SCH ×3 (08:09→17:46)
[2020-09-25] MEDS: MORPHINE SULFATE 10 MG/ML SQ PRN ×3 (09:04→21:40)
[2020-09-25] MEDS ORDERED: MEDICATION INTERVENTION MC SCH (09:15)
[2020-09-25 09:21] LABS: BAND 1 % (0.0-2.0); Eosinophil 1 % (0.00-3.0); Lymphocytes 10 % (24-44); Monocyte 4 % (0.0-12.0); Neutrophils 84 % (36.0-66.0); Total Cells Counted 100
[2020-09-25 09:22] LABS: ANISOCYTOSIS 2+; Hypochromia 1+; Platelet Estimate NORMAL (NORMAL); Poikilocytosis 2+; Toxic Granulation 1+
[2020-09-25] MEDS ORDERED: NON-FORMULARY ITEM (Tapentadol Hcl [Nucynta Er] 200 MG) PO SCH (10:00)
[2020-09-25] MEDS ORDERED: SYNTHROID 25 MCG PO SCH (10:00)
[2020-09-25] MEDS: SYNTHROID 50 MCG PO SCH (10:10)
[2020-09-25] MEDS: Neurontin 400 MG PO SCH ×3 (10:11→21:18)
[2020-09-25] MEDS: Dilantin 100 MG PO SCH ×3 (10:11→21:17)
[2020-09-25] MEDS: FEOSOL 325 MG PO SCH (10:11)
[2020-09-25] MEDS: Pepcid 20 MG VIAL IV SCH ×2 (10:12→21:18)
[2020-09-25] MEDS ORDERED: ENOXAPARIN SODIUM SQ SCH (11:15)
[2020-09-25 12:12] LABS: ABO TYPING A; Antibody Screen NEGATIVE (NEGATIVE); RH TYPING NEGATIVE
[2020-09-25 13:01] LABS: CROSS MATCH (PRBC) COMPATIBLE (COMPATIBLE)
[2020-09-25] MEDS ORDERED: Venofer 100 MG/5 ML*** 200 MG in Sodium Chloride 0.9% 100 ML IVPB 100 ML IV SCH (15:00)
[2020-09-25 21:17] LABS: Hematocrit 31.7 % (35-47); Hemoglobin 10.2 gm/dl (12.0-16.0)
[2020-09-25] MEDS: ENOXAPARIN SODIUM SQ SCH (21:17)
[2020-09-25] MEDS: lamICTAL 100MG TABLET PO SCH (21:18)
[2020-09-25] MEDS: ROCEPHIN 1 Gm-D5w 50 ml Bag** 1 G/50 ML IVPB IV SCH (21:18)
[2020-09-25] MEDS: Zithromax 500 MG/ 250 ML NaCl Premix 500 MG/250 ML IVPB IV SCH (22:29)
[2020-09-26] MEDS: TYLENOL 325 MG PO PRN ×4 (05:23→20:22)
[2020-09-26] MEDS: MORPHINE SULFATE 10 MG/ML SQ PRN ×4 (06:34→21:36)
[2020-09-26] MEDS: Reglan 10 MG PO SCH ×3 (08:00→17:11)
[2020-09-26 08:47] LABS: Absolute Neutrophil Ct (ANC) 10.13 (1.4-6.9); BASOPHIL % 0.2 % (0.0-0.4); Basophil (Absolute #) 0.02 (0-0.4); Eosinophil % 1.2 % (0.00-5.0); Eosinophil (Absolute #) 0.15 (0-0.5); Hematocrit 30.2 % (35-47); Hemoglobin 9.7 gm/dl (12.0-16.0); Lymphocyte (Absolute #) 1.45 (1.0-4.6); Lymphocytes % 11.2 % (24.0-44.0); Mean Cell Volume 75.7 fl (78-100); Mean Corpuscular Hemoglobin 24.3 pg (26-32); Mean Corpuscular Hgb Concent. 32.1 g/dl (32-36); Mean Platelet Volume 10.2 fl (7.5-11.0); Monocyte (Absolute #) 1.14 (0.0-1.3); Monocytes % 8.8 % (0.0-12.0); Neutrophil % 78.6 % (36.0-66.0); Platelet Count 472 K/mm3 (150-450); Red Blood Count 3.99 M/mm3 (4.1-5.4); Red Cell Distribution Width 19.4 % (11.5-14.0); White Blood Count 12.9 K/mm3 (4.0-10.5)
[2020-09-26] MEDS: Neurontin 400 MG PO SCH ×3 (08:51→21:32)
[2020-09-26] MEDS: FEOSOL 325 MG PO SCH (08:52)
[2020-09-26] MEDS: Dilantin 100 MG PO SCH ×3 (08:52→21:32)
[2020-09-26] MEDS: SYNTHROID 50 MCG PO SCH (08:52)
[2020-09-26] MEDS: Pepcid 20 MG VIAL IV SCH ×2 (08:52→21:32)
[2020-09-26] MEDS: ENOXAPARIN SODIUM SQ SCH (08:53)
[2020-09-26 09:35] LABS: ALBUMIN 3.1 g/dL (3.5-5.0); ALKALINE PHOSPHATASE 155 U/L (38-126); ANION GAP 15.2 MEQ/L (5-15); BLOOD UREA NITROGEN 11 mg/dL (7-17); CHLORIDE 103 mmol/L (98-107); Calcium 8.1 mg/dL (8.4-10.2); Carbon Dioxide 20 mmol/L (22-30); Creatinine 1 0.77 mg/dL (0.52-1.04); EST GLOMERULAR FILTRATION RATE > 60.0 ML/MIN; Glucose 109 mg/dL (74-106); SGOT/AST 61 U/L (14-36); SGPT/ALT 18 U/L (0-35); SODIUM 136 mmol/L (137-145); Total Protein 6.5 g/dL (6.3-8.2)
[2020-09-26 09:54] LABS: Slide Review 1 YES
[2020-09-26] MEDS: HYDROCODONE-CHLORPHEN ER SUSP PO PRN ×2 (09:55→20:19)
[2020-09-26] MEDS ORDERED: DULCOLAX 5 MG PO PRN (10:28)
[2020-09-26] MEDS ORDERED: BABY ASPIRIN 81 MG CHEW PO ONE (10:30)
[2020-09-26] MEDS ORDERED: VENTOLIN COMMON CANISTER IH PRN (10:30)
[2020-09-26] MEDS: Klor Con 10 MEQ PO SCH ×2 (10:44→21:32)
--- NOTE | 2020-09-26 10:55 | XRAY ---
Indication: Short of breath and cough. Follow-up pneumonia. Comparison: September 24, 2020. PA/lateral chest demonstrates mild clearing of previous left lower lobe airspace disease which still persists with new small effusion. Remaining heart and right lung normal.
[2020-09-26] MEDS ORDERED: Nitrostat 0.4 MG Tablet SL PRN (11:00)
--- NOTE | 2020-09-26 11:10 | XRAY ---
Indication: Chest pain and extreme short of breath. Pneumonia. Elevated d-dimer. Known IV contrast allergy. Comparison: None Patient received 5 mCi technetium 99 MAA for the perfusion portion of exam. Multiple planar images obtained. Ventilation portion of exam not performed due to extreme short of breath. Perfusion images demonstrates good radiopharmaceutical activity throughout both lungs. Blunting of left costophrenic angle corresponds to effusion on same-day chest radiograph. There is no focal lobar/segmental perfusion defects. Impression: Left costophrenic angle blunting corresponds to chest radiograph effusion. Remaining nuclear medicine perfusion scan only exam is negative.
--- NOTE | 2020-09-26 13:02 | HP ---
CHIEF COMPLAINT: Shortness of breath, left chest pain, fever. HISTORY OF PRESENT ILLNESS: The patient is a 65 year-old white female who has been here for two days with increased shortness of breath, cough and fever at night. She had COVID in July and has not felt well since then but this is a new symptomatology since the COVID. She has not been anywhere. She does not smoke, quit years ago. Denies any severe heaviness or pressure in the chest. TRAVEL RISK: None. MEDICATIONS: Amitriptyline 200 h.s., Synthroid 50 q.d., Lamictal 100 h.s., gabapentin 800 two times a day for neuropathy of legs. Dilantin 100 t.i.d., Reglan 10 t.i.d. ALLERGIES: CONTRAST DYE, PAXIL, CODEINE, SULFA. PAST MEDICAL HISTORY: Neuropathy of legs. She has had some back pain for a long time. PAST SURGICAL HISTORY: Appendectomy. section. Hysterectomy. Multiple back surgeries. REVIEW OF SYSTEMS: HEENT: She has had fever, chills and headache. No bleeding from the nose. No loss of taste. CVS: She has chest pain but no history of heart disease or hypertension. ABDOMEN: No abdominal pain. Threw up once while she was coughing hard besides that she does not have any change in bowel movements. She has a history of ulcers. I think gastric found on endoscopy which were cauterized. She has had iron deficiency anemia for years without finding exact cause for which she has had numerous infusions of iron and some blood. : No dysuria. SKIN: No lesions. SOCIAL HISTORY: The patient is a , lives at home by herself. Nonsmoker, nondrinker. PHYSICAL EXAMINATION: The patient is alert, orientated, appropriate, 64 year-old white female in no significant distress on the evening that I saw her. O2 saturation was 99% in the emergency room. HEENT: Pupils equal and reactive to light. NECK: Supple without adenopathy. CHEST: Few crackles on the left anterior, clear on the right. CVS: Regular rate. No murmurs or gallops. ABDOMEN: Soft. There is a large ventral hernia on the left which is easily reducible. EXTREMITIES: No cyanosis. No edema. LAB DATA AND TESTS: Chest x-ray showed pneumonia left side. White count elevated at 30% with small indices. D-dimer was elevated to 2,000. Troponins were negative. Potassium was low at 3.0. IMPRESSION: 1) The patient has a left lower lobe pneumonia probably Pneumococcus. 2) History of COVID, not active. 3) History of elevated D-dimer probably from infection but will get a nuclear scan when available. 4) Hypokalemia, will address that. 5) History of seizures, well controlled. 6) Chest pain/pleurisy. Plan as above. PROGNOSIS: The patient's prognosis is fair.
[2020-09-26] MEDS: Ativan 1 MG PO PRN (20:23)
[2020-09-26] MEDS: Zithromax 500 MG/ 250 ML NaCl Premix 500 MG/250 ML IVPB IV SCH (21:31)
[2020-09-26] MEDS: lamICTAL 100MG TABLET PO SCH (21:32)
[2020-09-26] MEDS: ROCEPHIN 1 Gm-D5w 50 ml Bag** 1 G/50 ML IVPB IV SCH (21:32)
[2020-09-27 05:36] LABS: Hematocrit 28.9 % (35-47); Hemoglobin 9.2 gm/dl (12.0-16.0); Mean Cell Volume 76.5 fl (78-100); Mean Corpuscular Hemoglobin 24.3 pg (26-32); Mean Corpuscular Hgb Concent. 31.8 g/dl (32-36); Mean Platelet Volume 9.9 fl (7.5-11.0); Platelet Count 490 K/mm3 (150-450); Red Blood Count 3.78 M/mm3 (4.1-5.4); Red Cell Distribution Width 19.7 % (11.5-14.0); White Blood Count 11.9 K/mm3 (4.0-10.5)
[2020-09-27] MEDS: MORPHINE SULFATE 10 MG/ML SQ PRN ×2 (05:43→10:02)
[2020-09-27 05:48] LABS: ANION GAP 14.8 MEQ/L (5-15); BLOOD UREA NITROGEN 9 mg/dL (7-17); CHLORIDE 105 mmol/L (98-107); Calcium 8.5 mg/dL (8.4-10.2); Carbon Dioxide 22 mmol/L (22-30); Creatinine 1 0.69 mg/dL (0.52-1.04); EST GLOMERULAR FILTRATION RATE > 60.0 ML/MIN; Glucose 94 mg/dL (74-106); Potassium 3.5 mmol/L (3.5-5.1); SODIUM 138 mmol/L (137-145)
[2020-09-27 07:59] VITALS: BP 138/80; PULSE 90
[2020-09-27 08:06] VITALS: O2SAT 92
[2020-09-27] MEDS: Reglan 10 MG PO SCH (08:06)
[2020-09-27] MEDS: HYDROCODONE-CHLORPHEN ER SUSP PO PRN (08:41)
[2020-09-27] MEDS: Ativan 1 MG PO PRN (08:41)
[2020-09-27] MEDS: TYLENOL 325 MG PO PRN (08:41)
[2020-09-27] MEDS: Pepcid 20 MG VIAL IV SCH (08:59)
[2020-09-27] MEDS: Dilantin 100 MG PO SCH (09:59)
[2020-09-27] MEDS: SYNTHROID 50 MCG PO SCH (09:59)
[2020-09-27] MEDS: Neurontin 400 MG PO SCH (09:59)
[2020-09-27] MEDS: Klor Con 10 MEQ PO SCH (09:59)
[2020-09-27] MEDS: FEOSOL 325 MG PO SCH (09:59)
[2020-09-27] MEDS ORDERED: ENOXAPARIN SODIUM SQ SCH (10:00)
[2020-09-27] MEDS ORDERED: Kenalog-40 IM ONE (10:00)
[2020-09-27] MEDS ORDERED: DELTASONE 20 MG PO SCH (10:00)
== END 2020-09-27 10:43 | disposition home or self-care (01) | DRG 195 ==
LOC: ED 16:56 → MED SURG 19:46
PROVIDERS: ADMIT Family Medicine; ATTEND Family Medicine
DX: J18.9 Pneumonia, unspecified organism (principal); Z86.16 Personal history of COVID-19; E87.6 Hypokalemia; R09.1 Pleurisy; R07.9 Chest pain, unspecified; R51.9 Headache, unspecified; R53.1 Weakness; Z79.899 Other long term (current) drug therapy; E03.9 Hypothyroidism, unspecified
CPT/HCPCS: 36000; 36415; 36430; 71045; 71046; 78580; 80048; 80053; 82947; 83036; 83615; 84132; 84484; 85014; 85018; 85025; 85027; 85379; 85610; 86850; 86900; 86901; 86922; 87070; 93005; 93041; 94762; 96365; 96367; 96374; 99285; 99291; A9540; P9016; 87077; 87186; J0456; J0696; J1650; J1756; J1885; J2270; J3301; J3480; A9270-GY

== ENCOUNTER 2021-06-05 12:35 | Observation (INO) | payer MEDICARE ==
--- NOTE | 2021-06-05 13:24 | ERPHSYRPT ---
- History of Present Illness Historian: patient Exam Limitations: other (Poor historian) Patient Subjective Stated Complaint: " I have been short of breath for a couple of days and I have pain in my head. I get dizzy when I get up and it's hard to catch my breath". Triage Nursing Assessment: Pt presents to ER with complaints of shortness of breath. Pt respirations appear slightly labored. Lung sounds clear but diminished throughout. Pt skin is pink, warm, and dry. Pt complains of left sided head pain, complains of lightheadedness. Pt complains of nausea, vomiting, diarrhea. Pt complains of intermittent cough and fever. Pt states has had Covid19 virus twice, last was in September 2020. Pt has no current cough or fever. Pt appears pleasant and communicable. Pt is alert and oriented x3. Physician History: 65 yo wf w N/V/D x1 wk w myalgias/mild dyspnea/mild cough/mild LORD. She states that she has had melanic stool for 1 week but denies hematemesis/hematochezia. Timing/Duration: other (1wk) Quality: aching Abdominal Pain Onset Location: periumbilical Pain Radiation: no radiation Severity of Pain-Max: moderate Severity of Pain-Current: moderate Modifying Factors: Worsens With: analgesics, antacids, breathing, coughing, defecating, eating, exercise, lying down, movement, palpation, rest, urinating, vomiting, position, walking Associated Symptoms: diarrhea, headache, nausea, shortness of breath, vomiting, weakness, No back, No chest pain, No diaphoresis, No fever/chills, No fatigue, No heartburn, No neck pain, No rash, No syncope, No testicular pain Previous symptoms: no prior history Allergies/Adverse Reactions: Iodinated Contrast Media [IV Dye, Iodine Containing Contrast ] Allergy (Severe, Verified 06/05/21 12:52) Anaphylactic Reaction paroxetine HCl [From Paxil] Allergy (Severe, Verified 06/05/21 12:52) Vomiting Causes nervousness and severe vomiting codeine Allergy (Mild, Verified 06/05/21 12:52) Rash prednisone Allergy (Mild, Verified 06/05/21 12:54) Rash Sulfa (Sulfonamide Antibiotics) [Sulfa(Sulfonamide Antibiotics)] Allergy (Mild, Verified 06/05/21 12:52) Rash Home Medications: Amitriptyline HCl 10 mg [Elavil 10 mg] 200 mg PO HS 02/20/14 [History] Levothyroxine Sodium 25 Mcg [Synthroid 25 Mcg] 50 mcg PO DAILY 02/20/14 [History] Lamotrigine [Lamictal] 100 mg PO HS 06/07/17 [History] Gabapentin 800 mg PO TID 06/08/19 [History] Phenytoin Sod Extended 100 mg* [Dilantin 100 MG] 100 mg PO TID 07/28/20 [History] Hx Tetanus, Diphtheria Vaccination/Date Given: No Hx Influenza Vaccination/Date Given: No Hx Pneumococcal Vaccination/Date Given: No Immunizations Up to Date: No Travel Risk - International Travel Have you traveled outside of the country in past 3 weeks: No - Coronavirus Screening Are you exhibiting any of the following symptoms?: Yes Symptoms: Fever, Cough: New Onset, Shortness of Breath, Vomiting/Diarrhea, Loss of Taste or Smell, Headaches/Body Aches/Fatigue - Vaccine Status Have you recieved a Covid-19 vaccination: No - Review of Systems Constitutional: No Symptoms, Fatigue Eyes: No Symptoms Ears, Nose, & Throat: No Symptoms Respiratory: No Symptoms, Cough, Dyspnea Cardiac: No Symptoms Abdominal/Gastrointestinal: No Symptoms, Abdominal Pain, Nausea, Vomiting, Diarrhea Genitourinary Symptoms: No Symptoms Musculoskeletal: No Symptoms Skin: No Symptoms Neurological: No Symptoms Psychological: No Symptoms Endocrine: No Symptoms Hematologic/Lymphatic: No Symptoms Immunological/Allergic: No Symptoms - Past Medical History Pertinent Past Medical History: Yes Neurological History: Epilepsy, Migraines ENT History: No Pertinent History Cardiac History: Hypertension Respiratory History: No Pertinent History Endocrine Medical History: Hypothyroidism Musculoskeletal History: Osteoarthritis GI Medical History: Ulcer History: No Pertinent History Psycho-Social History: No Pertinent History Female Reproductive Disorders: No Pertinent History Other Medical History: back problems - Past Surgical History Past Surgical History: Yes Neuro Surgical History: No Pertinent History Cardiac: No Pertinent History Respiratory: No Pertinent History Gastrointestinal: Appendectomy Genitourinary: No Pertinent History Musculoskeletal: Orthopedic Surgery Female Surgical History: Section, Hysterectomy Other Surgical History: MULTIPLE BACK SURGERIES, x2 - Social History Smoking Status: Never smoker Exposure to second hand smoke: No Drug Use: none Patient Lives Alone: No Significant Family History: no pertinent family hx - Female History Hx Now: No - Nursing Vital Signs Nursing Vital Signs: Initial Vital Signs Temperature 98 F 06/05/21 12:46 Pulse Rate 89 06/05/21 12:46 Respiratory Rate 22 06/05/21 12:46 Blood Pressure 148/83 06/05/21 12:46 O2 Sat by Pulse Oximetry 100 06/05/21 12:46 Pain Scale Pain Intensity 6 Hypertensive - Physical Exam General Appearance: no apparent distress Eye Exam: PERRL/EOMI, eyes nml inspection Ears, Nose, Throat Exam: normal ENT inspection, TMs normal, pharynx normal, moist mucous membranes, dry mucous membranes Neck Exam: normal inspection, non-tender, supple, full range of motion, No meningismus, No mass, No Brudzinski, No Kernig's Respiratory Exam: normal breath sounds, lungs clear, airway intact Cardiovascular Exam: regular rate/rhythm, normal heart sounds, normal peripheral pulses, No murmur Gastrointestinal/Abdomen Exam: soft, normal bowel sounds, No tenderness Back Exam: normal inspection, normal range of motion, No CVA tenderness Extremity Exam: normal inspection, normal range of motion Neurologic Exam: alert, oriented x 3, cooperative, medical intern II-XII nml as tested, normal mood/affect, nml station & gait, sensation nml Skin Exam: normal color Lymphatic Exam: No adenopathy SpO2 Interpretation: normal SpO2: 100 O2 Delivery: Room Air - Course Nursing assessment & vital signs reviewed: Yes - CT Exams Abdomen/Pelvis CT Interpretation: Discussed w/radiologist (Stable gastric bypass) Ordered Tests: Active Orders 24 hr Category Date Time Status Bedrest with BRP/BSC ROUTINE Activity 06/05/21 19:40 Active Code Status Order ROUTINE Care 06/05/21 19:40 Active IV Care Q6H Care 06/05/21 19:[address] in Observation ROUTINE Care 06/05/21 19:40 Active Vital Signs Q4H Care 06/05/21 19:40 Active NPO Diet 06/05/21 19:40 Active ABDOMEN AND PELVIS W/0 CONTRAS [CT] Stat Exams 06/05/21 14:35 Completed AMYLASE Stat Lab 06/05/21 13:16 Completed CBC W DIFF AM.LAB Lab 06/06/21 04:00 Ordered CBC W DIFF Stat Lab 06/05/21 13:16 Completed CMP AM.LAB Lab 06/06/21 04:00 Ordered CMP Stat Lab 06/05/21 13:16 Completed INFLUENZA A+B JIA Stat Lab 06/05/21 13:17 Completed LIPASE Stat Lab 06/05/21 13:16 Completed Occult Blood Stool [FECAL OCCULT BLOOD - SCREENING] Lab 06/05/21 Ordered Stat TROPONIN Q3H Lab 06/05/21 13:16 Completed TROPONIN Q3H Lab 06/05/21 16:29 Completed TROPONIN Q3H Lab 06/05/21 22:15 Ordered TROPONIN Q3H Lab 06/06/21 01:15 Ordered UA W/RFX UR CULTURE Stat Lab 06/05/21 14:24 Completed Transfer Order Routine Transfer 06/05/21 Completed Medication Summary Generic Name Dose Route Start Last Admin Trade Name Freq PRN Reason Stop Dose Admin Fentanyl Citrate 25 mcg 06/05/21 17:32 Fentanyl Citrate 100 Mcg/2 Ml* Vial IV 06/10/21 17:31 Q4H PRN PRN SEVERE PAIN Sodium Chloride 1,000 mls @ 100 mls/hr 06/05/21 19:40 Sodium Chloride 0.9% 1000 Ml IV 07/05/21 19:39 .Q10H CARINA Ondansetron HCl 4 mg 06/05/21 19:40 Ondansetron Hcl 4 Mg/2 Ml Vial IV 07/05/21 19:39 Q6H PRN PRN NAUSEA/VOMITING Pantoprazole Sodium 40 mg 06/06/21 10:00 Pantoprazole 40 Mg Vial IV 07/06/21 09:59 Q24H10 CARINA Discontinued Medications Generic Name Dose Route Start Last Admin Trade Name Freq PRN Reason Stop Dose Admin Fentanyl Citrate 50 mcg 06/05/21 16:05 06/05/21 16:34 Fentanyl Citrate 100 Mcg/2 Ml* Vial IV 06/05/21 16:06 50 mcg STAT ONE Administration Fentanyl Citrate Confirm 06/05/21 16:32 Fentanyl Citrate 100 Mcg/2 Ml* Vial Administered 06/05/21 16:33 Dose 100 mcg .ROUTE .STK-MED ONE Furosemide 20 mg 06/05/21 17:31 Furosemide 20 Mg/Vial IV 06/05/21 17:32 AFTER EA UNIT BLOOD ONE Ondansetron HCl 4 mg 06/05/21 16:06 06/05/21 16:35 Ondansetron Hcl 4 Mg/2 Ml Vial IV 06/05/21 16:07 4 mg STAT ONE Administration Ondansetron HCl Confirm 06/05/21 16:32 Ondansetron Hcl 4 Mg/2 Ml Vial Administered 06/05/21 16:33 Dose 4 mg .ROUTE .STK-MED ONE Lab/Rad Data: Laboratory Result Diagrams 06/05/21 13:16 06/05/21 13:16 Laboratory Results 06/05/21 06/05/21 06/05/21 Range/Units 18:59 17:19 16:29 WBC (4.0-10.5) K/mm3 RBC (4.1-5.4) M/mm3 Hgb (12.0-16.0) gm/dl Hct (35-47) % MCV (78-100) fl MCH (26-32) pg MCHC (32-36) g/dl RDW (11.5-14.0) % Plt Count (150-450) K/mm3 MPV (7.5-11.0) fl Gran % (36.0-66.0) % Eos # (Auto) (0-0.5) Absolute Lymphs (auto) (1.0-4.6) Absolute Monos (auto) (0.0-1.3) Lymphocytes % (24.0-44.0) % Monocytes % (0.0-12.0) % Eosinophils % (0.00-5.0) % Basophils % (0.0-0.4) % Absolute Granulocytes (1.4-6.9) Basophils # (0-0.4) Sodium (137-145) mmol/L Potassium (3.5-5.1) mmol/L Chloride (98-107) mmol/L Carbon Dioxide (22-30) mmol/L Anion Gap (5-15) MEQ/L BUN (7-17) mg/dL Creatinine (0.52-1.04) mg/dL Estimated GFR ML/MIN Glucose (74-106) mg/dL Calcium (8.4-10.2) mg/dL Total Bilirubin (0.2-1.3) mg/dL AST (14-36) U/L ALT (0-35) U/L Alkaline Phosphatase (38-126) U/L Troponin I < 0.012 (0.000-0.034) ng/mL Serum Total Protein (6.3-8.2) g/dL Albumin (3.5-5.0) g/dL Amylase (30-110) U/L Lipase (23-300) U/L Urine Color (YELLOW) Urine Appearance (CLEAR) Urine pH (5-6) Ur Specific [place] (1.005-1.025) Urine Protein (Negative) Urine Ketones (NEGATIVE) Urine Blood (0-5) Lyle/ul Urine Nitrite (NEGATIVE) Urine Bilirubin (NEGATIVE) Urine Urobilinogen (0-1) mg/dL Ur Leukocyte Esterase (NEGATIVE) Urine WBC (Auto) (0-5) /HPF Urine RBC (Auto) (0-2) /HPF U Epithel Cells (Auto) (FEW) /HPF Urine Bacteria (Auto) (NEGATIVE) /HPF Urine Mucus (Auto) (NEGATIVE) /HPF Urine Culture Reflexed (NO) Urine Glucose (NEGATIVE) mg/dL Influenza Type A Ag NEGATIVE (NEGATIVE) Influenza Type B Ag NEGATIVE (NEGATIVE) RSV (PCR) NEGATIVE (Negative) SARS-CoV-2 (PCR) NEGATIVE (NEGATIVE) Slides for Path Review ABO Group Rh Factor Antibody Screen (NEGATIVE) Crossmatch COMPATIBLE (COMPATIBLE) 06/05/21 06/05/21 06/05/21 Range/Units 16:23 14:24 13:17 WBC (4.0-10.5) K/mm3 RBC (4.1-5.4) M/mm3 Hgb (12.0-16.0) gm/dl Hct (35-47) % MCV (78-100) fl MCH (26-32) pg MCHC (32-36) g/dl RDW (11.5-14.0) % Plt Count (150-450) K/mm3 MPV (7.5-11.0) fl Gran % (36.0-66.0) % Eos # (Auto) (0-0.5) Absolute Lymphs (auto) (1.0-4.6) Absolute Monos (auto) (0.0-1.3) Lymphocytes % (24.0-44.0) % Monocytes % (0.0-12.0) % Eosinophils % (0.00-5.0) % Basophils % (0.0-0.4) % Absolute Granulocytes (1.4-6.9) Basophils # (0-0.4) Sodium (137-145) mmol/L Potassium (3.5-5.1) mmol/L Chloride (98-107) mmol/L Carbon Dioxide (22-30) mmol/L Anion Gap (5-15) MEQ/L BUN (7-17) mg/dL Creatinine (0.52-1.04) mg/dL Estimated GFR ML/MIN Glucose (74-106) mg/dL Calcium (8.4-10.2) mg/dL Total Bilirubin (0.2-1.3) mg/dL AST (14-36) U/L ALT (0-35) U/L Alkaline Phosphatase (38-126) U/L Troponin I (0.000-0.034) ng/mL Serum Total Protein (6.3-8.2) g/dL Albumin (3.5-5.0) g/dL Amylase (30-110) U/L Lipase (23-300) U/L Urine Color STRAW (YELLOW) Urine Appearance CLEAR (CLEAR) Urine pH 7.0 (5-6) Ur Specific [place] 1.009 (1.005-1.025) Urine Protein NEGATIVE (Negative) Urine Ketones NEGATIVE (NEGATIVE) Urine Blood MODERATE (0-5) Lyle/ul Urine Nitrite NEGATIVE (NEGATIVE) Urine Bilirubin NEGATIVE (NEGATIVE) Urine Urobilinogen NEGATIVE (0-1) mg/dL Ur Leukocyte Esterase NEGATIVE (NEGATIVE) Urine WBC (Auto) NONE (0-5) /HPF Urine RBC (Auto) 3-5 (0-2) /HPF U Epithel Cells (Auto) NONE (FEW) /HPF Urine Bacteria (Auto) NONE (NEGATIVE) /HPF Urine Mucus (Auto) SLIGHT (NEGATIVE) /HPF Urine Culture Reflexed NO (NO) Urine Glucose NEGATIVE (NEGATIVE) mg/dL Influenza Type A Ag NEGATIVE (NEGATIVE) Influenza Type B Ag NEGATIVE (NEGATIVE) RSV (PCR) (Negative) SARS-CoV-2 (PCR) (NEGATIVE) Slides for Path Review ABO Group A Rh Factor NEGATIVE Antibody Screen NEGATIVE (NEGATIVE) Crossmatch COMPATIBLE (COMPATIBLE) 06/05/21 06/05/21 06/05/21 Range/Units 13:16 13:16 13:16 WBC 7.6 (4.0-10.5) K/mm3 RBC 3.36 L (4.1-5.4) M/mm3 Hgb 7.1 L (12.0-16.0) gm/dl Hct 24.8 L (35-47) % MCV 73.8 L (78-100) fl MCH 21.1 L (26-32) pg MCHC 28.6 L (32-36) g/dl RDW 14.9 H (11.5-14.0) % Plt Count 491 H (150-450) K/mm3 MPV 9.8 (7.5-11.0) fl Gran % 50.6 (36.0-66.0) % Eos # (Auto) 1.44 H (0-0.5) Absolute Lymphs (auto) 1.44 (1.0-4.6) Absolute Monos (auto) 0.84 (0.0-1.3) Lymphocytes % 18.9 L (24.0-44.0) % Monocytes % 11.1 (0.0-12.0) % Eosinophils % 18.9 H (0.00-5.0) % Basophils % 0.5 (0.0-0.4) % Absolute Granulocytes 3.84 (1.4-6.9) Basophils # 0.04 (0-0.4) Sodium 132 L (137-145) mmol/L Potassium 3.3 L (3.5-5.1) mmol/L Chloride 103 (98-107) mmol/L Carbon Dioxide 25 (22-30) mmol/L Anion Gap 7.5 (5-15) MEQ/L BUN 9 (7-17) mg/dL Creatinine 0.69 (0.52-1.04) mg/dL Estimated GFR > 60.0 ML/MIN Glucose 98 (74-106) mg/dL Calcium 7.6 L (8.4-10.2) mg/dL Total Bilirubin 0.20 (0.2-1.3) mg/dL AST 25 (14-36) U/L ALT 16 (0-35) U/L Alkaline Phosphatase 105 (38-126) U/L Troponin I < 0.012 (0.000-0.034) ng/mL Serum Total Protein 5.4 L (6.3-8.2) g/dL Albumin 2.8 L (3.5-5.0) g/dL Amylase 47 (30-110) U/L Lipase 26 (23-300) U/L Urine Color (YELLOW) Urine Appearance (CLEAR) Urine pH (5-6) Ur Specific [place] (1.005-1.025) Urine Protein (Negative) Urine Ketones (NEGATIVE) Urine Blood (0-5) Lyle/ul Urine Nitrite (NEGATIVE) Urine Bilirubin (NEGATIVE) Urine Urobilinogen (0-1) mg/dL Ur Leukocyte Esterase (NEGATIVE) Urine WBC (Auto) (0-5) /HPF Urine RBC (Auto) (0-2) /HPF U Epithel Cells (Auto) (FEW) /HPF Urine Bacteria (Auto) (NEGATIVE) /HPF Urine Mucus (Auto) (NEGATIVE) /HPF Urine Culture Reflexed (NO) Urine Glucose (NEGATIVE) mg/dL Influenza Type A Ag (NEGATIVE) Influenza Type B Ag (NEGATIVE) RSV (PCR) (Negative) SARS-CoV-2 (PCR) (NEGATIVE) Slides for Path Review YES ABO Group Rh Factor Antibody Screen (NEGATIVE) Crossmatch (COMPATIBLE) - Progress Progress: improved Progress Note: 06/05/21 17:[address] Monaco 06/05/21 20:24 Fentanyl 50umg IV x1/4mg IV Zofran 1L NS bolus Will see patient in: ED Counseled pt/family regarding: lab results, rad results - Departure Departure Disposition: Observation Clinical Impression: GI bleed, Microcytic anemia Condition: Stable Critical Care Time: No
[2021-06-05 13:33] LABS: ALBUMIN 2.8 g/dL (3.5-5.0); ALKALINE PHOSPHATASE 105 U/L (38-126); AMYLASE 47 U/L (30-110); ANION GAP 7.5 MEQ/L (5-15); Absolute Neutrophil Ct (ANC) 3.84 (1.4-6.9); BASOPHIL % 0.5 % (0.0-0.4); BLOOD UREA NITROGEN 9 mg/dL (7-17); Basophil (Absolute #) 0.04 (0-0.4); CHLORIDE 103 mmol/L (98-107); Calcium 7.6 mg/dL (8.4-10.2); Carbon Dioxide 25 mmol/L (22-30); Creatinine 1 0.69 mg/dL (0.52-1.04); EST GLOMERULAR FILTRATION RATE > 60.0 ML/MIN; Eosinophil % 18.9 % (0.00-5.0); Eosinophil (Absolute #) 1.44 (0-0.5); Glucose 98 mg/dL (74-106); Hematocrit 24.8 % (35-47); Hemoglobin 7.1 gm/dl (12.0-16.0); LIPASE 26 U/L (23-300); Lymphocyte (Absolute #) 1.44 (1.0-4.6); Lymphocytes % 18.9 % (24.0-44.0); Mean Cell Volume 73.8 fl (78-100); Mean Corpuscular Hemoglobin 21.1 pg (26-32); Mean Corpuscular Hgb Concent. 28.6 g/dl (32-36); Mean Platelet Volume 9.8 fl (7.5-11.0); Monocyte (Absolute #) 0.84 (0.0-1.3); Monocytes % 11.1 % (0.0-12.0); Neutrophil % 50.6 % (36.0-66.0); Platelet Count 491 K/mm3 (150-450); Potassium 3.3 mmol/L (3.5-5.1); Red Blood Count 3.36 M/mm3 (4.1-5.4); Red Cell Distribution Width 14.9 % (11.5-14.0); SGOT/AST 25 U/L (14-36); SGPT/ALT 16 U/L (0-35); SODIUM 132 mmol/L (137-145); Total Protein 5.4 g/dL (6.3-8.2); White Blood Count 7.6 K/mm3 (4.0-10.5)
[2021-06-05 13:54] LABS: INFLUENZA A NEGATIVE (NEGATIVE); INFLUENZA B NEGATIVE (NEGATIVE)
[2021-06-05 14:28] LABS: Appearance CLEAR (CLEAR); Bilirubin NEGATIVE (NEGATIVE); Blood MODERATE Ery/ul (0-5); Glucose NEGATIVE (NEGATIVE); Ketones NEGATIVE (NEGATIVE); Leukocyte Esterase NEGATIVE (NEGATIVE); Mucus SLIGHT /HPF (NEGATIVE); Nitrite NEGATIVE (NEGATIVE); Protein,Urine Dip NEGATIVE (Negative); Specific Gravity 1.009 (1.005-1.025); Urobilinogen NEGATIVE mg/dL (0-1)
[2021-06-05 15:01] LABS: Slide Review 1 YES
[2021-06-05] MEDS ORDERED: SUBLIMAZE 100 MCG/2 ML IV ONE (16:05)
[2021-06-05] MEDS ORDERED: Zofran 4 MG/2 ML VIAL IV ONE (16:06)
[2021-06-05] MEDS ORDERED: Zofran 4 MG/2 ML VIAL ONE (16:32)
[2021-06-05] MEDS ORDERED: SUBLIMAZE 100 MCG/2 ML ONE (16:32)
--- NOTE | 2021-06-05 16:33 | XRAY ---
Indication: Blood in stool, nausea, vomiting, and headache. Multiple contiguous axial images obtained through the abdomen and pelvis without contrast. Comparison: June 10, 2019. Lung bases remain clear. Heart is not enlarged. Again previous gastric bypass surgery. Noncontrasted stomach and bowel loops appear nonobstructed. Appendectomy, cholecystectomy, and hysterectomy reported. No free fluid/air. Stable tiny hepatic/splenic calcified granulomas and small right renal cyst. Remaining liver, gallbladder, pancreas, spleen, adrenal glands, kidneys, ureters, bladder, and aorta are unremarkable for noncontrast exam. Osseous structures intact again with mild degenerative changes throughout the spine. No ventral or inguinal hernias. Impression: 1. Stable gastric bypass surgery, right renal cyst, and old granulomatous disease. 2. Remaining CT abdomen/pelvis without contrast exam continues to be negative.
[2021-06-05] MEDS ORDERED: Lasix 20 MG/2 ML IV ONE (17:31)
[2021-06-05] MEDS ORDERED: SUBLIMAZE 100 MCG/2 ML IV PRN (17:32)
[2021-06-05 18:06] LABS: INFLUENZA A NEGATIVE (NEGATIVE); INFLUENZA B NEGATIVE (NEGATIVE); RESPIRATORY SYNCTIAL VIRUS NEGATIVE (Negative); SARS-CoV-2 Xpert Express NEGATIVE (NEGATIVE)
[2021-06-05 18:52] LABS: ABO TYPING A; Antibody Screen NEGATIVE (NEGATIVE); RH TYPING NEGATIVE
[2021-06-05 19:02] LABS: CROSS MATCH (PRBC) COMPATIBLE (COMPATIBLE)
[2021-06-05] MEDS ORDERED: Sodium Chloride 0.9% 1000 ML 1,000 ML IV SCH (19:40)
[2021-06-05] MEDS ORDERED: Zofran 4 MG/2 ML VIAL IV PRN (19:40)
[2021-06-05] MEDS: Dilantin 100 MG PO SCH (21:39)
[2021-06-05] MEDS: Neurontin 400 MG PO SCH (21:39)
[2021-06-05] MEDS: PROTONIX 40 MG IV IV SCH (21:40)
[2021-06-05] MEDS ORDERED: lamICTAL 100MG TABLET PO SCH (22:00)
[2021-06-06] MEDS: DILAUDID 1 MG/1ML PCA IV PRN ×2 (01:14→08:42)
[2021-06-06] MEDS ORDERED: MEDICATION INTERVENTION MC SCH (08:00)
[2021-06-06] MEDS ORDERED: PHARMACY DOSING REQUEST MC ONE (08:13)
--- NOTE | 2021-06-06 08:30 | HP ---
CHIEF COMPLAINT: Shortness of breath, dizzy, history of gastric ulcers. HISTORY OF PRESENT ILLNESS: The patient is a 65-year-old white female who now presents for the above complaints. She was found to be profoundly anemic in the emergency room with a hemoglobin of 7.1. The patient reports that she had been having some black stools but that has resolved since then and is actually having brown stools now. The patient apparently has history of gastric ulcers. She had been on Carafate and Protonix previously but not on them presently. The patient otherwise complains of some headache issues. She reports that she has migraines but this is not migraine-like. PAST MEDICAL/SURGICAL HISTORY: Significant for previous seizures, hypothyroid. She is currently seeing a pain management doctor for problems of her lower back. She previously had appendectomy, section and hysterectomy. HOME MEDICATIONS: Amitriptyline 200 mg at night, gabapentin 800 mg t.i.d., Lamictal 100 mg at night, levothyroxine 25 mcg daily, Dilantin 100 mg t.i.d. and Nucynta Extended Release 200 mg twice a day. The patient does see a chronic pain specialist with those medications. ALLERGIES: PAXIL. CODEINE. PREDNISONE. SULFA. IV CONTRAST DYE. PHYSICAL EXAMINATION: The patient's vital signs on admission showed her temperature 98F, pulse 89, respiratory rate 22 and blood pressure 148/83. O2 saturation was 100%. HEENT: Normocephalic, atraumatic. Pupils equal round reactive to light. Extraocular movements intact. Oropharynx is dry. NECK: Supple without lymphadenopathy, thyromegaly or JVD. CHEST: Clear to auscultation. HEART: Regular rate and rhythm without murmurs, rubs or gallops. ABDOMEN: Soft, mildly tender. No masses were felt. EXTREMITIES: Without cyanosis, clubbing or edema. NEUROLOGIC: The patient is alert and oriented x3 with no focal deficits. LAB DATA AND TESTS: The patient's laboratory studies had shown her to be COVID negative. She had white count of 7.6, hemoglobin 7.1, PLT count 491,000. Her metabolic panel showed sodium 132, potassium 3.3 and total protein was low. Amylase and lipase were normal. Influenza and RSV were negative. Troponin was less than 0.012. UA was normal. She had CT scan abdomen and pelvis which showed stable gastric bypass surgery, renal cyst and otherwise was essentially normal. ASSESSMENT: A patient with anemia secondary likely to GI bleed which apparently has stopped at the present time but has left her with a hemoglobin of 7.1. The patient is admitted to the hospital for IV transfusion of 2 units packed red blood cells. We will check her blood count afterwards. She was complaining of headache pain otherwise and was placed on CARE PROVIDER. The patient normally Nucynta at fairly high dosage from her pain management doctor in [place]. Otherwise the patient was given IV fluids for fluid hydration and for appetite has actually will be given some regular food after which we will get her off of the CARE PROVIDER she will be able to go home with iron infusions as the patient reports that she was unable to take iron by mouth without getting her stomach upset. She does have a history of previous iron infusions.
[2021-06-06] MEDS: NORCO 5/325 MG PO PRN ×2 (08:33→12:52)
[2021-06-06] MEDS: PROTONIX 40 MG IV IV SCH (08:47)
[2021-06-06] MEDS: Dilantin 100 MG PO SCH (08:47)
[2021-06-06] MEDS: Neurontin 400 MG PO SCH (08:47)
[2021-06-06 09:40] LABS: Absolute Neutrophil Ct (ANC) 3.09 (1.4-6.9); BASOPHIL % 0.5 % (0.0-0.4); Basophil (Absolute #) 0.04 (0-0.4); Eosinophil % 14.2 % (0.00-5.0); Eosinophil (Absolute #) 1.04 (0-0.5); Hematocrit 29.2 % (35-47); Hemoglobin 8.9 gm/dl (12.0-16.0); Lymphocyte (Absolute #) 2.33 (1.0-4.6); Lymphocytes % 31.9 % (24.0-44.0); Mean Cell Volume 76.6 fl (78-100); Mean Corpuscular Hemoglobin 23.4 pg (26-32); Mean Corpuscular Hgb Concent. 30.5 g/dl (32-36); Mean Platelet Volume 9.1 fl (7.5-11.0); Neutrophil % 42.4 % (36.0-66.0); Platelet Count 422 K/mm3 (150-450); Red Blood Count 3.81 M/mm3 (4.1-5.4); Red Cell Distribution Width 17.4 % (11.5-14.0); White Blood Count 7.3 K/mm3 (4.0-10.5)
[2021-06-06 09:49] LABS: ALBUMIN 2.5 g/dL (3.5-5.0); ALKALINE PHOSPHATASE 102 U/L (38-126); ANION GAP 8.8 MEQ/L (5-15); BLOOD UREA NITROGEN 4 mg/dL (7-17); CHLORIDE 105 mmol/L (98-107); Calcium 7.6 mg/dL (8.4-10.2); Carbon Dioxide 24 mmol/L (22-30); Creatinine 1 0.66 mg/dL (0.52-1.04); EST GLOMERULAR FILTRATION RATE > 60.0 ML/MIN; Glucose 108 mg/dL (74-106); Potassium 3.3 mmol/L (3.5-5.1); SGOT/AST 23 U/L (14-36); SGPT/ALT 14 U/L (0-35); SODIUM 134 mmol/L (137-145); Total Protein 4.9 g/dL (6.3-8.2)
[2021-06-06] MEDS ORDERED: Venofer 100 MG/5 ML*** 300 MG in Sodium Chloride 0.9% 250 ML 250 ML IV SCH (10:00)
[2021-06-06] MEDS ORDERED: PROTONIX 40 MG IV IV SCH (10:00)
[2021-06-06] MEDS ORDERED: TAPENTADOL HCL 200 MG PO SCH (10:00)
[2021-06-06] MEDS ORDERED: SYNTHROID 50 MCG PO SCH (10:00)
[2021-06-06] MEDS ORDERED: SYNTHROID 25 MCG PO SCH (10:00)
[2021-06-06 11:48] VITALS: BP 152/74; PULSE 84; O2SAT 98
== END 2021-06-06 14:28 | disposition home or self-care (01) ==
LOC: ED 12:35 → ICU 19:34
PROVIDERS: ADMIT Family Medicine; ATTEND Family Medicine
DX: D64.9 Anemia, unspecified (principal); R51.9 Headache, unspecified; R06.02 Shortness of breath; R42 Dizziness and giddiness; Z79.899 Other long term (current) drug therapy; Z87.11 Personal history of peptic ulcer disease; Z20.828 Contact with and (suspected) exposure to other viral communicable diseases; Z86.16 Personal history of COVID-19
CPT/HCPCS: 0241U; 36000; 36415; 36430; 74176; 80053; 81001; 82150; 83690; 84484; 85025; 86850; 86900; 86901; 86922; 87400; 96374; 96375; 99285; G0378; P9016; J1170; J1756; J2405; J3010; A9270-GY

== ENCOUNTER 2021-07-10 07:57 | Day surgery (SDC) | payer MEDICARE ==
[2021-07-10] MEDS ORDERED: Sodium Chloride 0.9% 1000 ML 1,000 ML ONE (08:47)
[2021-07-10 08:56] LABS: Hematocrit 24.8 % (35-47); Hemoglobin 7.2 gm/dl (12.0-16.0)
[2021-07-10] MEDS ORDERED: Sodium Chloride 0.9% 1000 ML 1,000 ML IV SCH (09:00)
--- NOTE | 2021-07-10 09:42 | HP ---
DATE OF SURGERY: 07/10/2021 HISTORY OF PRESENT ILLNESS: The patient is a 65-year-old who last July had an ulcer, had some epigastric aches and pains. She has been on some blood thinners in the past. Last colonoscopy was a few years ago. Family history negative for stomach or colon cancer. Given her epigastric pain, history of some GI bleed and it had been a few years since her last colonoscopy, I feel the patient would benefit from upper and lower endoscopy to evaluate for gastritis, ulcer disease, colitis, neoplasia or polyps or other etiology. PAST MEDICAL HISTORY: Hypertension, hypothyroidism, osteoarthritis, migraines, anxiety disorder. PAST SURGICAL HISTORY: Appendectomy. Back surgery in the past. sections in the past. Hysterectomy. MEDICATIONS: Amitriptyline, levothyroxine, gabapentin, lamotrigine, metoprolol, Nucynta, omeprazole, phenytoin, sucralfate. ALLERGIES: SULFA. CODEINE. PREDNISONE. FENTANYL. PAROXETINE. IV CONTRAST. FAMILY HISTORY: Negative for stomach or colon cancer. SOCIAL HISTORY: No smoking or alcohol abuse. REVIEW OF SYSTEMS: Fourteen systems reviewed per admission assessment. No chest pain or palpitations. Other systems negative or noncontributory as above and per preadmission questionnaire. LAB DATA AND TESTS: She had hemoglobin down to 4.8 in the past. PHYSICAL EXAMINATION: GENERAL: No acute distress. HEENT: Sclerae nonicteric. NECK: No JVD. CHEST: Equal excursion, nonlabored breathing. CVS: Regular rate and rhythm. ABDOMEN: Soft. No peritoneal signs. EXTREMITIES: No significant edema. NEURO: Alert, oriented, moving extremities symmetrically. RECTAL: Deferred timed to endoscopy exam. PSYCH: Appropriate mood and affect. IMPRESSION: Given her anemia, some epigastric pain, some upper abdominal aches, last colonoscopy a few years ago, she is in need of upper and lower endoscopy for further evaluation. Risks and benefits explained in detail including but not limited to bleeding or infection, risk of bowel injury or perforation possibly requiring open procedure, risk of missed or nondiagnosis or incomplete exam but not limited to, consent was obtained. Will proceed with colonoscopy and EGD as an outpatient.
[2021-07-10] MEDS ORDERED: TYLENOL EXTRA STRENGTH 500 MG ONE (09:53)
[2021-07-10] MEDS ORDERED: TYLENOL EXTRA STRENGTH 500 MG PO PRN (09:55)
[2021-07-10] MEDS ORDERED: Xylocaine-Mpf 2% 5 Ml Vial ONE (12:18)
[2021-07-10] MEDS ORDERED: DIPRIVAN 200 MG/20 ML IV ONE ×2 (12:18→12:25)
[2021-07-10 13:52] VITALS: O2SAT 97
[2021-07-10 14:05] LABS: Hematocrit 24.7 % (35-47); Hemoglobin 7.4 gm/dl (12.0-16.0)
[2021-07-10 15:15] VITALS: BP 140/79; PULSE 83
--- NOTE | 2021-07-10 15:23 | XRAY ---
Indication: Incomplete colonoscopy. No biopsies. Preliminary sports team manager abdomen appears nonacute and nonobstructed with numerous epigastric surgical clips, left midabdomen suture material, and multiple splenic calcified granulomas. Following insertion of a barium enema catheter, balloon tip was insufflated. Barium contrast was then infused under fluoroscopic and gravity control. Multiple overhead and digital spot radiographs obtained. There is good opacification and distention of the entire colon. Transverse colon and splenic flexure demonstrates redundancy. There is also scattered fecal debris in the cecum, ascending, and transverse colon. No focal stricture, annular constricting lesions, or abnormal filling defect. No presacral soft tissue mass either. Postevacuation overhead radiograph demonstrates mild residual throughout the colon. No abnormal extravasation/leak. Impression: Redundant transverse colon and splenic flexure. Scattered fecal debris predominantly in the right hemicolon. Remaining single contrast barium enema exam is negative. Approximately 1.4 minute fluoroscopy used.
--- NOTE | 2021-07-11 09:36 | OP ---
SURGERY DATE/TIME: 07/10/2021 1219 PREOPERATIVE DIAGNOSES: 1) Anemia, need for upper and lower endoscopy. 2) Prior history of gastric ulcers. POSTOPERATIVE DIAGNOSES: 1) Moderate amount of food retention limiting upper endoscopic exam. 2) Gastric ulceration. 3) Poor colon prep limiting exam. PROCEDURES: 1) EGD with cold biopsy of stomach for Helicobacter pylori. 2) Colonoscopy to mid to proximal transverse colon (unsafe to complete the procedure secondary to poor prep). SURGEON: Dr. Jozef Tyler. ANESTHESIA: MAC. ESTIMATED BLOOD LOSS: Minimal. INDICATIONS: As noted above. Risks and benefits explained in detail and not limited to and consent obtained. DESCRIPTION OF PROCEDURE AND FINDINGS: The patient is taken to the operating room. MAC anesthesia introduced. Bite block positioned. Video gastroscope passed down into the stomach. There was a large amount of retained food with some gastric ulceration. The proximal small bowel seemed to be okay. Again, very limited exam as the stomach is moderately full of food that could not be removed. Cold biopsy taken to evaluate for Helicobacter pylori. It was felt to better define this anatomy in a upper GI study that it would be beneficial to give the patient some time to maybe pass some of this food out of the stomach. Attention was then turned to colonoscopy. The colonoscope is carefully inserted. There is no evidence of any fresh or old blood in the colon. However unfortunately the prep is very poor. Tortuous colon. The scope was passed up at least mid-way to the proximal transverse colon. However because of the poor prep, it was unsafe to try to pass this further. Suctioned irrigated as clear as possible. Scope slowly and carefully withdrawn there is no signs of any obstructing masses on withdrawal. There was a very poor prep limiting the exam. I will order a barium enema for further evaluation given her poor prep as well as an upper GI study for further evaluation of anatomy. In the meantime, continue proton pump inhibitors given her gastric ulcer. The patient had been previously scoped by Dr. Robert Tidwell back July 2020 and noted to have moderate amount of food in the stomach at that time, gastric ulcer with some duodenal stenosis at that time.
== END 2021-07-10 15:30 | disposition home or self-care (01) ==
LOC: SDC 07:57
PROVIDERS: ATTEND Surgery
DX: D64.9 Anemia, unspecified (principal); K25.9 Gastric ulcer, unspecified as acute or chronic, without hemorrhage or perforation; Z87.11 Personal history of peptic ulcer disease
CPT/HCPCS: 36415; 36430; 43239; 45378; 74270; 85014; 85018; P9016; J2704; A9270-GY

== ENCOUNTER 2021-09-20 13:32 | Observation (INO) | payer MEDICARE ==
--- NOTE | 2021-09-20 13:53 | ERPHSYRPT ---
- History of Present Illness Time Seen by Provider: 09/20/21 13:40 Source: patient Exam Limitations: no limitations Patient Subjective Stated Complaint: PT HERE FOR SOB FOR A COUPLE DAYS, SHE STATES SHE HAS ULCERS AND IS ANEMIC. SHE ASLO STATES HER SON SHE LIVES WITH HAS COVID Triage Nursing Assessment: PT ALERT, ANXIOUS,RESP LABORED WITH EXCERTION, FACE MASK IN PLACE, SKIN W.D.P, NO EDEMA NOTED Physician History: Patient is a 66-year-old female presents to emergency department for evaluation of shortness of breath. Patient has a history of symptomatic anemia related to a bleeding stomach ulcer. Patient believes that she is experiencing another bout of symptomatic anemia. No associated chest pain. No nausea vomiting or diaphoresis. Symptoms are mild to moderate in intensity. Patient voices that her son is now recovered from Covid. Patient concerned that she may also have Covid. No fever. No rash. Patient voices no other complaints or concerns at this time. Timing/Duration: yesterday Severity: moderate Modifying Factors: Improves With: movement Associated Symptoms: denies symptoms, No chills, No fever, No syncope, No seizure Allergies/Adverse Reactions: Iodinated Contrast Media [IV Dye, Iodine Containing Contrast ] Allergy (Severe, Verified 09/20/21 13:40) Anaphylactic Reaction paroxetine HCl [From Paxil] Allergy (Severe, Verified 09/20/21 13:40) Vomiting Causes nervousness and severe vomiting codeine Allergy (Mild, Verified 09/20/21 13:40) Rash prednisone Allergy (Mild, Verified 09/20/21 13:40) Rash Sulfa (Sulfonamide Antibiotics) [Sulfa(Sulfonamide Antibiotics)] Allergy (Mild, Verified 09/20/21 13:40) Rash fentanyl Adverse Reaction (Verified 09/20/21 13:40) could not move Home Medications: Amitriptyline HCl 10 mg [Elavil 10 mg] 200 mg PO HS 02/20/14 [History] Levothyroxine Sodium 25 Mcg [Synthroid 25 Mcg] 50 mcg PO DAILY 02/20/14 [History] lamoTRIgine [Lamictal] 100 mg PO HS 06/07/17 [History] Gabapentin 800 mg PO TID 06/08/19 [History] Phenytoin Sod Extended 100 mg* [Dilantin 100 MG] 100 mg PO QID 07/28/20 [History] Metoprolol Tartrate 25 mg PO DAILY 07/03/21 [History] Omeprazole 40 mg PO BID 07/03/21 [History] Sucralfate 1 gm [Carafate 1 GM] 1 g PO ACHS 07/03/21 [History] Ferrous Sulfate 325 mg [Feosol 325 mg] 1 ea DAILY 09/20/21 [History] Hx Tetanus, Diphtheria Vaccination/Date Given: No Hx Influenza Vaccination/Date Given: No Hx Pneumococcal Vaccination/Date Given: No Immunizations Up to Date: Yes Travel Risk - International Travel Have you traveled outside of the country in past 3 weeks: No - Coronavirus Screening Are you exhibiting any of the following symptoms?: No Symptoms: Shortness of Breath Close contact with a COVID-19 positive Pt in past 14-21 Days: Yes - Vaccine Status Have you recieved a Covid-19 vaccination: No - Review of Systems Constitutional: No Symptoms, No Fever, No Chills Eyes: No Symptoms Ears, Nose, & Throat: No Symptoms Respiratory: No Symptoms, No Cough, No Dyspnea Cardiac: No Symptoms, No Chest Pain, No Edema, No Syncope Abdominal/Gastrointestinal: No Symptoms, No Abdominal Pain, No Nausea, No Vomiting, No Diarrhea Genitourinary Symptoms: No Symptoms, No Dysuria Musculoskeletal: No Symptoms, No Back Pain, No Neck Pain Skin: No Symptoms, No Rash Neurological: No Symptoms, No Dizziness, No Focal Weakness, No Sensory Changes Psychological: No Symptoms Endocrine: No Symptoms Hematologic/Lymphatic: No Symptoms Immunological/Allergic: No Symptoms All Other Systems: Reviewed and Negative - Past Medical History Pertinent Past Medical History: Yes Neurological History: Epilepsy, Migraines ENT History: No Pertinent History Cardiac History: Hypertension Respiratory History: No Pertinent History Endocrine Medical History: Hypothyroidism Musculoskeletal History: Osteoarthritis GI Medical History: Ulcer History: No Pertinent History Psycho-Social History: No Pertinent History Female Reproductive Disorders: No Pertinent History Other Medical History: back problems. anemia - Past Surgical History Past Surgical History: Yes Neuro Surgical History: No Pertinent History Cardiac: No Pertinent History Respiratory: No Pertinent History Gastrointestinal: Appendectomy Genitourinary: No Pertinent History Musculoskeletal: Orthopedic Surgery Female Surgical History: Section, Hysterectomy Other Surgical History: MULTIPLE BACK SURGERIES, x2 - Social History Smoking Status: Never smoker Exposure to second hand smoke: Yes Drug Use: none Patient Lives Alone: No Significant Family History: no pertinent family hx - Nursing Vital Signs Nursing Vital Signs: Initial Vital Signs Temperature 97.4 F 09/20/21 13:33 Pulse Rate 90 09/20/21 13:33 Respiratory Rate 28 H 09/20/21 13:33 Blood Pressure 127/87 09/20/21 13:33 Pain Scale Pain Intensity 5 - Physical Exam General Appearance: no apparent distress, alert Eye Exam: PERRL/EOMI, eyes nml inspection Ears, Nose, Throat Exam: normal ENT inspection, TMs normal, pharynx normal, moist mucous membranes Neck Exam: normal inspection, non-tender, supple, full range of motion Respiratory Exam: normal breath sounds, lungs clear, airway intact, No respiratory distress Cardiovascular Exam: regular rate/rhythm, normal heart sounds, normal peripheral pulses Gastrointestinal/Abdomen Exam: soft, normal bowel sounds, other (Right upper quadrant tenderness to palpation), No tenderness, No mass Back Exam: normal inspection, normal range of motion, No CVA tenderness, No vertebral tenderness Extremity Exam: normal inspection, normal range of motion, pelvis stable Neurologic Exam: alert, oriented x 3, cooperative, normal mood/affect, nml cerebellar function, nml station & gait, sensation nml, No motor deficits Skin Exam: normal color, warm, dry, No rash Lymphatic Exam: No adenopathy SpO2 Interpretation: normal SpO2: 97 O2 Delivery: Room Air - Course Nursing assessment & vital signs reviewed: Yes EKG Interpreted by Me: RATE (88), Sinus Rhythm, NORMAL AXIS, NORMAL INTERVALS (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 Stomach moderately distended with food or bezoar. New moderate diffuse fecal stasis. Stable left renal cyst. Otherwise negative abdomen pelvis CT.) - Radiology Ultrasound Exam Gallbladder Ultrasound: tele radiology report (Gallbladder ultrasound unable to visualize gallbladder. Common bile duct is 3.7 mm. Right renal cyst. Fatty liver.) Ordered Tests: Active Orders 24 hr Category Date Time Status Ppa Teacher STAT Care 09/20/21 13:46 Active EKG-ER Only STAT Care 09/20/21 13:45 Active IV Insertion STAT Care 09/20/21 13:45 Active Pulse Oximetry (ED) STAT Care 09/20/21 13:45 Active ABDOMEN AND PELVIS W/0 CONTRAS [CT] Stat Exams 09/20/21 17:22 Taken CHEST 1 VIEW (PORTABLE) Stat Exams 09/20/21 13:46 Completed GALLBLADDER [US] Stat Exams 09/20/21 14:39 Completed CBC W DIFF Stat Lab 09/20/21 13:45 Completed CMP Stat Lab 09/20/21 13:45 Completed LIPASE Stat Lab 09/20/21 13:45 Completed TROPONIN Q3H Lab 09/20/21 14:30 Completed TROPONIN Q3H Lab 09/20/21 20:20 Received TROPONIN Q3H Lab 09/20/21 23:00 Ordered TROPONIN Q3H Lab 09/21/21 02:00 Ordered Transfer Order Routine Transfer 09/20/21 Ordered Lab/Rad Data: Laboratory Result Diagrams 09/20/21 13:45 09/20/21 13:45 Laboratory Results 09/20/21 09/20/21 09/20/21 Range/Units 19:31 17:36 17:36 WBC (4.0-10.5) K/mm3 RBC (4.1-5.4) M/mm3 Hgb (12.0-16.0) gm/dl Hct (35-47) % MCV (78-100) fl MCH (26-32) pg MCHC (32-36) g/dl RDW (11.5-14.0) % Plt Count (150-450) K/mm3 MPV (7.5-11.0) fl Gran % (36.0-66.0) % Eos # (Auto) (0-0.5) Absolute Lymphs (auto) (1.0-4.6) Absolute Monos (auto) (0.0-1.3) Lymphocytes % (24.0-44.0) % Monocytes % (0.0-12.0) % Eosinophils % (0.00-5.0) % Basophils % (0.0-0.4) % Absolute Granulocytes (1.4-6.9) Basophils # (0-0.4) Sodium (137-145) mmol/L Potassium (3.5-5.1) mmol/L Chloride (98-107) mmol/L Carbon Dioxide (22-30) mmol/L Anion Gap (5-15) MEQ/L BUN (7-17) mg/dL Creatinine (0.52-1.04) mg/dL Estimated GFR ML/MIN Glucose (74-106) mg/dL Calcium (8.4-10.2) mg/dL Total Bilirubin (0.2-1.3) mg/dL AST (14-36) U/L ALT (0-35) U/L Alkaline Phosphatase (38-126) U/L Troponin I (0.000-0.034) ng/mL Serum Total Protein (6.3-8.2) g/dL Albumin (3.5-5.0) g/dL Lipase (23-300) U/L Influenza Type A Ag NEGATIVE (NEGATIVE) Influenza Type B Ag NEGATIVE (NEGATIVE) RSV (PCR) NEGATIVE (Negative) SARS-CoV-2 (PCR) NEGATIVE (NEGATIVE) Slides for Path Review ABO Group Rh Factor Antibody Screen (NEGATIVE) Crossmatch COMPATIBLE COMPATIBLE (COMPATIBLE) 09/20/21 09/20/21 09/20/21 Range/Units 14:30 13:53 13:45 WBC (4.0-10.5) K/mm3 RBC (4.1-5.4) M/mm3 Hgb (12.0-16.0) gm/dl Hct (35-47) % MCV (78-100) fl MCH (26-32) pg MCHC (32-36) g/dl RDW (11.5-14.0) % Plt Count (150-450) K/mm3 MPV (7.5-11.0) fl Gran % (36.0-66.0) % Eos # (Auto) (0-0.5) Absolute Lymphs (auto) (1.0-4.6) Absolute Monos (auto) (0.0-1.3) Lymphocytes % (24.0-44.0) % Monocytes % (0.0-12.0) % Eosinophils % (0.00-5.0) % Basophils % (0.0-0.4) % Absolute Granulocytes (1.4-6.9) Basophils # (0-0.4) Sodium (137-145) mmol/L Potassium (3.5-5.1) mmol/L Chloride (98-107) mmol/L Carbon Dioxide (22-30) mmol/L Anion Gap (5-15) MEQ/L BUN (7-17) mg/dL Creatinine (0.52-1.04) mg/dL Estimated GFR ML/MIN Glucose (74-106) mg/dL Calcium (8.4-10.2) mg/dL Total Bilirubin (0.2-1.3) mg/dL AST (14-36) U/L ALT (0-35) U/L Alkaline Phosphatase (38-126) U/L Troponin I < 0.012 (0.000-0.034) ng/mL Serum Total Protein (6.3-8.2) g/dL Albumin (3.5-5.0) g/dL Lipase 252 (23-300) U/L Influenza Type A Ag (NEGATIVE) Influenza Type B Ag (NEGATIVE) RSV (PCR) (Negative) SARS-CoV-2 (PCR) (NEGATIVE) Slides for Path Review ABO Group A Rh Factor NEGATIVE Antibody Screen NEGATIVE (NEGATIVE) Crossmatch (COMPATIBLE) 09/20/21 09/20/21 Range/Units 13:45 13:45 WBC 10.0 (4.0-10.5) K/mm3 RBC 2.94 L (4.1-5.4) M/mm3 Hgb 7.6 L (12.0-16.0) gm/dl Hct 25.2 L (35-47) % MCV 85.7 (78-100) fl MCH 25.9 L (26-32) pg MCHC 30.2 L (32-36) g/dl RDW 25.5 H (11.5-14.0) % Plt Count 513 H (150-450) K/mm3 MPV 9.8 (7.5-11.0) fl Gran % 78.9 H (36.0-66.0) % Eos # (Auto) 0.10 (0-0.5) Absolute Lymphs (auto) 1.24 (1.0-4.6) Absolute Monos (auto) 0.75 (0.0-1.3) Lymphocytes % 12.4 L (24.0-44.0) % Monocytes % 7.5 (0.0-12.0) % Eosinophils % 1.0 (0.00-5.0) % Basophils % 0.2 (0.0-0.4) % Absolute Granulocytes 7.92 H (1.4-6.9) Basophils # 0.02 (0-0.4) Sodium 132 L (137-145) mmol/L Potassium 3.6 (3.5-5.1) mmol/L Chloride 105 (98-107) mmol/L Carbon Dioxide 20 L (22-30) mmol/L Anion Gap 11.2 (5-15) MEQ/L BUN 19 H (7-17) mg/dL Creatinine 0.67 (0.52-1.04) mg/dL Estimated GFR > 60.0 ML/MIN Glucose 97 (74-106) mg/dL Calcium 8.4 (8.4-10.2) mg/dL Total Bilirubin 0.20 (0.2-1.3) mg/dL AST 22 (14-36) U/L ALT 17 (0-35) U/L Alkaline Phosphatase 91 (38-126) U/L Troponin I (0.000-0.034) ng/mL Serum Total Protein 6.2 L (6.3-8.2) g/dL Albumin 3.5 (3.5-5.0) g/dL Lipase (23-300) U/L Influenza Type A Ag (NEGATIVE) Influenza Type B Ag (NEGATIVE) RSV (PCR) (Negative) SARS-CoV-2 (PCR) (NEGATIVE) Slides for Path Review YES ABO Group Rh Factor Antibody Screen (NEGATIVE) Crossmatch (COMPATIBLE) - Progress Progress: improved Progress Note: Patient reassessed. Patient is resting comfortably. Blood products ordered. Case discussed with Dr. Polk who accepts admission to observation. Plan of care discussed with patient. She agrees to admission [facility] for further evaluation and treatment. Patient voiced no other complaints concerns at this time. Covid test negative Dictation disclaimer. 09/20/21 20:38 Discussed with : Rush Will see patient in: hospital (observation) Counseled pt/family regarding: lab results, diagnosis, rad results - Departure Departure Disposition: Observation Clinical Impression: Symptomatic anemia, Hyponatremia, Thrombocytosis, Fatty liver, Right upper quadrant pain, Gastric distention, Constipation, Renal cyst, left Condition: Stable Critical Care Time: No Referrals: JUAN MONTILLA [Primary Care Provider] - Follow up/PCP as directed
--- NOTE | 2021-09-20 14:04 | XRAY ---
Indication: Short of breath. Comparison: September 26, 2020. Portable chest demonstrates normal heart and lungs with again incidental left hilar calcified nodes. Bony thorax intact again with old right humerus head fracture. No new/acute abnormalities.
[2021-09-20 14:31] LABS: Absolute Neutrophil Ct (ANC) 7.92 (1.4-6.9); Basophil (Absolute #) 0.02 (0-0.4); Hematocrit 25.2 % (35-47); Hemoglobin 7.6 gm/dl (12.0-16.0); Lymphocyte (Absolute #) 1.24 (1.0-4.6); Lymphocytes % 12.4 % (24.0-44.0); Mean Cell Volume 85.7 fl (78-100); Mean Corpuscular Hemoglobin 25.9 pg (26-32); Mean Corpuscular Hgb Concent. 30.2 g/dl (32-36); Mean Platelet Volume 9.8 fl (7.5-11.0); Monocyte (Absolute #) 0.75 (0.0-1.3); Monocytes % 7.5 % (0.0-12.0); Neutrophil % 78.9 % (36.0-66.0); Platelet Count 513 K/mm3 (150-450); Red Blood Count 2.94 M/mm3 (4.1-5.4); Red Cell Distribution Width 25.5 % (11.5-14.0)
[2021-09-20 14:47] LABS: ALBUMIN 3.5 g/dL (3.5-5.0); ALKALINE PHOSPHATASE 91 U/L (38-126); ANION GAP 11.2 MEQ/L (5-15); BLOOD UREA NITROGEN 19 mg/dL (7-17); CHLORIDE 105 mmol/L (98-107); Calcium 8.4 mg/dL (8.4-10.2); Carbon Dioxide 20 mmol/L (22-30); Creatinine 1 0.67 mg/dL (0.52-1.04); EST GLOMERULAR FILTRATION RATE > 60.0 ML/MIN; Glucose 97 mg/dL (74-106); Potassium 3.6 mmol/L (3.5-5.1); SGOT/AST 22 U/L (14-36); SGPT/ALT 17 U/L (0-35); SODIUM 132 mmol/L (137-145); Total Protein 6.2 g/dL (6.3-8.2)
[2021-09-20 16:07] LABS: Slide Review 1 YES
--- NOTE | 2021-09-20 16:30 | XRAY ---
Indication: Cholecystitis. Two-dimensional gallbladder sonogram performed. Comparison: None Gallbladder not visualized presumed contracted as the patient was not NPO for exam. Common bile duct measures 3.7 mm. No intrahepatic biliary distention. Mild fatty echogenic liver without focal solid/cystic mass or ascites. Right kidney measures 10.2 cm in length with 2.4 cm upper pole cortical cyst. Impression: 1. Nonvisualized gallbladder presumed contracted as patient was not NPO for exam. 2. Right renal cyst and fatty liver.
[2021-09-20 18:45] LABS: ABO TYPING A; Antibody Screen NEGATIVE (NEGATIVE); RH TYPING NEGATIVE
[2021-09-20 20:14] LABS: INFLUENZA A NEGATIVE (NEGATIVE); INFLUENZA B NEGATIVE (NEGATIVE); RESPIRATORY SYNCTIAL VIRUS NEGATIVE (Negative); SARS-CoV-2 Xpert Express NEGATIVE (NEGATIVE)
[2021-09-20] MEDS ORDERED: Sodium Chloride 0.9% 1000 ML 1,000 ML ONE (20:47)
[2021-09-20] MEDS ORDERED: NORCO 5/325 MG PO ONE (22:08)
[2021-09-20] MEDS ORDERED: NORCO 5/325 MG ONE (22:09)
[2021-09-20] MEDS ORDERED: TYLENOL 325 MG PO PRN (22:18)
[2021-09-20] MEDS ORDERED: Sodium Chloride 0.9% 1000 ML 1,000 ML IV SCH (22:18)
[2021-09-21] MEDS ORDERED: Pepcid 20 MG PO SCH (01:00)
[2021-09-21] MEDS ORDERED: lamICTAL 100MG TABLET PO SCH (01:00)
[2021-09-21] MEDS: Neurontin 400 MG PO SCH ×2 (01:01→09:57)
[2021-09-21] MEDS: Dilantin 100 MG PO SCH ×2 (01:01→09:56)
[2021-09-21] MEDS: Protonix 40MG Tablet PO SCH ×2 (01:02→09:58)
[2021-09-21] MEDS: Carafate 1 GM PO SCH ×3 (01:02→12:42)
[2021-09-21 06:02] LABS: Absolute Neutrophil Ct (ANC) 6.31 (1.4-6.9); Basophil (Absolute #) 0.03 (0-0.4); Eosinophil (Absolute #) 0.09 (0-0.5); Hematocrit 28.5 % (35-47); Hemoglobin 9.1 gm/dl (12.0-16.0); Lymphocyte (Absolute #) 1.32 (1.0-4.6); Lymphocytes % 15.1 % (24.0-44.0); Mean Cell Volume 84.1 fl (78-100); Mean Corpuscular Hemoglobin 26.8 pg (26-32); Mean Corpuscular Hgb Concent. 31.9 g/dl (32-36); Mean Platelet Volume 8.8 fl (7.5-11.0); Monocyte (Absolute #) 1.01 (0.0-1.3); Monocytes % 11.5 % (0.0-12.0); Neutrophil % 72.1 % (36.0-66.0); Platelet Count 365 K/mm3 (150-450); Red Blood Count 3.39 M/mm3 (4.1-5.4); White Blood Count 8.8 K/mm3 (4.0-10.5)
[2021-09-21 06:08] LABS: ALBUMIN 2.9 g/dL (3.5-5.0); ALKALINE PHOSPHATASE 80 U/L (38-126); ANION GAP 7.4 MEQ/L (5-15); BLOOD UREA NITROGEN 17 mg/dL (7-17); CHLORIDE 105 mmol/L (98-107); Calcium 7.7 mg/dL (8.4-10.2); Carbon Dioxide 22 mmol/L (22-30); Creatinine 1 0.59 mg/dL (0.52-1.04); EST GLOMERULAR FILTRATION RATE > 60.0 ML/MIN; Glucose 96 mg/dL (74-106); Potassium 3.8 mmol/L (3.5-5.1); SGOT/AST 19 U/L (14-36); SGPT/ALT 13 U/L (0-35); SODIUM 131 mmol/L (137-145); Total Protein 5.3 g/dL (6.3-8.2)
--- NOTE | 2021-09-21 08:43 | XRAY ---
Indication: Abdomen pain, weakness, short of breath. Multiple contiguous axial images obtained through the abdomen and pelvis without contrast. Comparison: June 05, 2021. Lung bases remain clear. Heart not enlarged. Again previous gastric surgery. Stomach is now markedly distended with food versus bezoar. Noncontrasted bowel loops appear nonobstructed. There is now moderate diffuse scattered colonic fecal debris throughout. Again tiny hepatic/splenic calcified granulomas, small right renal cyst, appendectomy, cholecystectomy, and hysterectomy. No free fluid/air. Remaining liver, pancreas, spleen, adrenal glands, kidneys, ureters, bladder, and aorta are unremarkable for noncontrast exam. Osseous structures intact again with mild degenerative changes throughout the thoracolumbar spine. Impression: 1. New markedly distended stomach with food versus bezoar. 2. New moderate diffuse fecal stasis. 3. Again incidental right renal cyst, multilevel degenerative spondylosis, and old granulomatous disease.
[2021-09-21] MEDS ORDERED: CLARITIN 10 MG PO PRN (09:19)
[2021-09-21] MEDS ORDERED: Dilantin 100 MG PO PRN (09:19)
--- NOTE | 2021-09-21 09:24 | SSS ---
DISCHARGE DIAGNOSES: 1) ANEMIA. 2) GASTROINTESTINAL BLEED. PROCEDURES: Transfusion of two units of blood. HISTORY: The patient is a 66-year-old white female who presented to the emergency department for shortness of breath. She reports she gets feeling this way when she is anemic and she was found to have hemoglobin of 7.4. The patient has had scopes performed by Dr. Tyler recently and had two gastric ulcers. She is on no NSAID's at this time or blood thinners. She continues to have some black tarry stools at times. The patient was admitted to the hospital and given two units of blood bringing her hemoglobin up to 9.1. Her white count 8.8, PLT count 365,000. Her metabolic panel was essentially normal. HOME MEDICATIONS: The patient is on a long list of medications of amitriptyline, famotidine, iron, gabapentin, Lamictal, levothyroxine, loratadine, metoprolol, omeprazole, phenytoin, sucralfate and tapentadol for pain. ALLERGIES: IODINATED CONTRAST DYE. PAROXETINE. CODEINE. PREDNISONE. SULFA. FENTANYL. PHYSICAL EXAMINATION: Revealed a well-nourished, well-developed 66-year-old white female currently in no distress eating breakfast. Her evaluation in the emergency room showed a temperature of 97.4F, pulse 90, respiratory rate 28 and blood pressure 127/87. Her oxygen saturation in the hospital ranges between 96 to 100% on room air. HEENT: Normocephalic, atraumatic. Pupils equal round reactive to light. Extraocular movements intact. Oropharynx is pink and moist. NECK: Supple without lymphadenopathy, thyromegaly or JVD. CHEST: Clear to auscultation. HEART: Regular rate and rhythm without murmurs, rubs or gallops. ABDOMEN: Tender epigastric region otherwise no masses were felt. EXTREMITIES: Without cyanosis, clubbing or edema. NEUROLOGIC: The patient is alert and oriented x3. No focal deficits were noted. HOSPITAL COURSE: The patient was admitted for two units of blood. By this morning, the hemoglobin was up and the patient was feeling much better. She was felt to be ready for discharge home again. She will continue her usual home medications. 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
[2021-09-21] MEDS ORDERED: MEDICATION INTERVENTION PO SCH (09:30)
[2021-09-21] MEDS ORDERED: Toprol-Xl 25MG Tablets PO SCH (10:00)
[2021-09-21] MEDS ORDERED: FEOSOL 325 MG PO SCH (10:00)
[2021-09-21] MEDS ORDERED: TAPENTADOL HCL 200 MG PO SCH (10:00)
[2021-09-21] MEDS ORDERED: SYNTHROID 50 MCG PO SCH (10:00)
[2021-09-21 12:34] VITALS: BP 132/59; PULSE 85; O2SAT 98
== END 2021-09-21 13:15 | disposition home or self-care (01) ==
LOC: ED 13:32 → MED SURG 22:17
PROVIDERS: ADMIT Family Medicine; ATTEND Family Medicine
DX: D64.9 Anemia, unspecified (principal); K92.2 Gastrointestinal hemorrhage, unspecified; R06.02 Shortness of breath; I10 Essential (primary) hypertension; E03.9 Hypothyroidism, unspecified; Z79.899 Other long term (current) drug therapy; Z98.84 Bariatric surgery status; Z20.828 Contact with and (suspected) exposure to other viral communicable diseases
CPT/HCPCS: 0241U; 36000; 36415; 36430; 71045; 74176; 76705; 80053; 83690; 84484; 85025; 86850; 86900; 86901; 86922; 93005; 93041; 93268; 94760; 94762; 99284; G0378; P9016; A9270-GY

== ENCOUNTER 2022-01-08 04:53 | Emergency (ER) | payer MEDICARE ==
[2022-01-08] MEDS ORDERED: TORAdol 30 mg Injection IV ONE (05:35)
[2022-01-08] MEDS ORDERED: Norflex 60 MG/2 ML IM ONE (05:36)
--- NOTE | 2022-01-08 05:37 | ERPHSYRPT ---
- History of Present Illness Source: patient Exam Limitations: no limitations Patient Subjective Stated Complaint: pt states she has been having pain in her neck and radiating down her arm and her back. states pain has been worse this morning. Triage Nursing Assessment: pt alert and oriented, answers questions approp. pt arrive pr ambulance and transfers to stretcher per self. respirations nonlabored, lungs cta. skin warm and dry. peripheral pulses wnl. Timing/Duration: yesterday, worse Severity: moderate Modifying Factors: Improves With: movement Associated Symptoms: shortness of breath Hx Tetanus, Diphtheria Vaccination/Date Given: Yes Hx Influenza Vaccination/Date Given: No Hx Pneumococcal Vaccination/Date Given: Yes Immunizations Up to Date: Yes <DEMETRIO VALLADARES - Last Filed: 01/08/22 06:44> <MARYCARMEN MURPHY - Last Filed: 01/08/22 07:56> - History of Present Illness Time Seen by Provider: 01/08/22 05:32 Physician History: the pt has had radicular left neck pain for 2 days but worse today and hurts when she is josteled and steps; reproduced exactly by palpation each time. the heart score is 3 for age and ekg, and some risk factors, but pain not suspicious. so lower risk. she has pain which makes it hurt to breath - again related to the neck pain and wells criteria are low but will check D DImer. no hx of trauma. no neuro deficits at this time. chest clear ht reg without M. Abd soft and nontender without peritoneal signs. (DEMETRIO VALLADARES) Allergies/Adverse Reactions: Iodinated Contrast Media [IV Dye, Iodine Containing Contrast ] Allergy (Severe, Verified 01/08/22 05:11) Anaphylactic Reaction paroxetine HCl [From Paxil] Allergy (Severe, Verified 01/08/22 05:11) Vomiting Causes nervousness and severe vomiting codeine Allergy (Mild, Verified 01/08/22 05:11) Rash prednisone Allergy (Mild, Verified 01/08/22 05:11) Rash Sulfa (Sulfonamide Antibiotics) [Sulfa(Sulfonamide Antibiotics)] Allergy (Mild, Verified 01/08/22 05:11) Rash fentanyl Adverse Reaction (Verified 01/08/22 05:11) could not move Home Medications: Amitriptyline HCl 10 mg [Elavil 10 mg] 200 mg PO HS 02/20/14 [History] Levothyroxine Sodium 25 Mcg [Synthroid 25 Mcg] 50 mcg PO DAILY 02/20/14 [History] lamoTRIgine [Lamictal] 100 mg PO HS 06/07/17 [History] Gabapentin 800 mg PO TID 06/08/19 [History] Phenytoin Sod Extended 100 mg* [Dilantin 100 MG] 100 mg PO TID 07/28/20 [His tory] Omeprazole 40 mg PO BID 07/03/21 [History] Sucralfate 1 gm [Carafate 1 GM] 1 g PO ACHS 07/03/21 [History] Famotidine 20 mg [Pepcid 20 MG] 40 mg PO HS 09/20/21 [History] Ferrous Sulfate 325 mg [Feosol 325 mg] 1 ea PO DAILY 09/20/21 [History] Loratadine 10 mg [Claritin 10 mg] 10 mg PO DAILY PRN PRN 09/20/21 [History] Metoprolol Succinate 25 mg Xl* [Toprol-Xl 25MG Tablets] 25 mg PO DAILY 09/20/21 [History] Phenytoin Sod Extended 100 mg* [Dilantin 100 MG] 100 mg PO DAILY PRN PRN 09/20/21 [History] Travel Risk - International Travel Have you traveled outside of the country in past 3 weeks: No - Coronavirus Screening Are you exhibiting any of the following symptoms?: No Close contact with a COVID-19 positive Pt in past 14-21 Days: No - Vaccine Status Have you recieved a Covid-19 vaccination: No - Vaccination Dates Comment: Has not had sense of taste or smell for over a year since she had COVID <DEMETRIO VALLADARES - Last Filed: 01/08/22 06:44> - Review of Systems Constitutional: No Fever, No Chills Eyes: No Symptoms Ears, Nose, & Throat: No Symptoms Respiratory: Dyspnea, No Cough Cardiac: No Chest Pain, No Edema, No Syncope Abdominal/Gastrointestinal: No Abdominal Pain, No Nausea, No Vomiting, No Diarrhea Genitourinary Symptoms: No Dysuria Musculoskeletal: Neck Pain, No Back Pain Skin: No Symptoms, No Rash Neurological: Other (radicular pain left neck to arm), No Dizziness, No Focal Weakness, No Sensory Changes Psychological: No Symptoms Endocrine: No Symptoms Hematologic/Lymphatic: Anemia Immunological/Allergic: No Symptoms All Other Systems: Reviewed and Negative <DEMETRIO VALLADARES - Last Filed: 01/08/22 06:44> - Past Medical History Pertinent Past Medical History: Yes Neurological History: Epilepsy, Migraines ENT History: No Pertinent History Cardiac History: Hypertension Respiratory History: No Pertinent History Endocrine Medical History: Hypothyroidism Musculoskeletal History: Osteoarthritis GI Medical History: Ulcer History: No Pertinent History Psycho-Social History: No Pertinent History Female Reproductive Disorders: No Pertinent History Other Medical History: back problems. anemia - Past Surgical History Past Surgical History: Yes Neuro Surgical History: No Pertinent History Cardiac: No Pertinent History Respiratory: No Pertinent History Gastrointestinal: Appendectomy Genitourinary: No Pertinent History Musculoskeletal: Orthopedic Surgery Female Surgical History: Section, Hysterectomy Other Surgical History: MULTIPLE BACK SURGERIES, x2, ulcers removed - Social History Smoking Status: Never smoker Exposure to second hand smoke: Yes Drug Use: none Patient Lives Alone: No Significant Family History: no pertinent family hx <DEMETRIO VALLADARES - Last Filed: 01/08/22 06:44> - Physical Exam General Appearance: no apparent distress, alert Eye Exam: PERRL/EOMI, eyes nml inspection Ears, Nose, Throat Exam: normal ENT inspection, TMs normal, pharynx normal, moist mucous membranes Neck Exam: normal inspection, supple, full range of motion, limited range of motion, midline tenderness, No meningismus, No carotid bruit, No subcutaneous emphysema Respiratory Exam: normal breath sounds, chest tenderness, lungs clear, airway intact, No respiratory distress, No rhonchi, No wheezing, No stridor Cardiovascular Exam: regular rate/rhythm, normal heart sounds, normal peripheral pulses Gastrointestinal/Abdomen Exam: soft, normal bowel sounds, No tenderness, No mass Pelvic Exam: deferred Rectal Exam: deferred Back Exam: normal inspection, normal range of motion, No CVA tenderness, No vertebral tenderness Extremity Exam: normal inspection, normal range of motion, pelvis stable Neurologic Exam: alert, oriented x 3, cooperative, normal mood/affect, nml cerebellar function, nml station & gait, sensation nml, No motor deficits Skin Exam: normal color, warm, dry, No rash Lymphatic Exam: No adenopathy SpO2 Interpretation: normal SpO2: 100 O2 Delivery: Room Air <DEMETRIO VALLADARES - Last Filed: 01/08/22 06:44> - Nursing Vital Signs Nursing Vital Signs: Initial Vital Signs Temperature 98.1 F 01/08/22 04:54 Pulse Rate 90 01/08/22 04:54 Respiratory Rate 16 01/08/22 04:54 Blood Pressure 144/101 01/08/22 04:54 O2 Sat by Pulse Oximetry 100 01/08/22 04:54 Pain Scale Pain Intensity [Neck] 9 Pain Intensity 8 - Course Nursing assessment & vital signs reviewed: Yes EKG Interpreted by Me: Sinus Rhythm, Non-specific ST Changes <DEMETRIO VALLADARES - Last Filed: 01/08/22 06:44> Ordered Tests: Active Orders 24 hr Category Date Time Status EKG-ER Only STAT Care 01/08/22 05:34 Active IV Insertion STAT Care 01/08/22 05:34 Active Pulse Oximetry (ED) STAT Care 01/08/22 05:34 Active CERVICAL SPINE WO CONTRAST [CT] Stat Exams 01/08/22 06:52 Taken CHEST WITHOUT CONTRAST [CT] Stat Exams 01/08/22 06:53 Taken CBC W DIFF Stat Lab 01/08/22 06:00 Completed CMP Stat Lab 01/08/22 06:00 Completed D-DIMER QUANTITATIVE Stat Lab 01/08/22 06:00 Completed Lactic Acid Stat Lab 01/08/22 06:10 Completed NT PRO BNP Stat Lab 01/08/22 06:00 Completed TROPONIN Q3H Lab 01/08/22 06:00 Completed TROPONIN Q3H Lab 01/08/22 08:45 Ordered TROPONIN Q3H Lab 01/08/22 11:45 Ordered TROPONIN Q3H Lab 01/08/22 14:45 Ordered TROPONIN Q3H Lab 01/08/22 17:45 Ordered Medication Summary Generic Name Dose Route Start Last Admin Trade Name Freq PRN Reason Stop Dose Admin Sodium Chloride 1,000 mls @ 100 mls/hr 01/08/22 05:45 01/08/22 06:07 Sodium Chloride 0.9% 1000 Ml IV 02/07/22 05:44 100 mls/hr .Q10H CARINA Administration Discontinued Medications Generic Name Dose Route Start Last Admin Trade Name Freq PRN Reason Stop Dose Admin Ketorolac Tromethamine 30 mg 01/08/22 05:35 01/08/22 06:07 Ketorolac Tromethamine 30 Mg/Ml Inj IV 01/08/22 05:36 30 mg STAT ONE Administration Ketorolac Tromethamine Confirm 01/08/22 05:50 Ketorolac Tromethamine 30 Mg/Ml Inj Administered 01/08/22 05:51 Dose 30 mg .ROUTE .STK-MED ONE Morphine Sulfate Confirm 01/08/22 07:15 Morphine Sulfate 4 Mg/Ml Injection Administered 01/08/22 07:16 Dose 4 mg .ROUTE .STK-MED ONE Morphine Sulfate 4 mg 01/08/22 07:38 01/08/22 07:42 Morphine Sulfate 4 Mg/Ml Injection IV 01/08/22 07:39 4 mg STAT ONE Administration Orphenadrine Citrate 60 mg 01/08/22 05:36 01/08/22 06:07 Orphenadrine Citrate 60 Mg/2 Ml Vial IM 01/08/22 05:37 60 mg STAT ONE Administration Orphenadrine Citrate Confirm 01/08/22 05:50 Orphenadrine Citrate 60 Mg/2 Ml Vial Administered 01/08/22 05:51 Dose 60 mg .ROUTE .STK-MED ONE Lab/Rad Data: Laboratory Result Diagrams 01/08/22 06:00 01/08/22 06:00 Laboratory Results 01/08/22 01/08/22 01/08/22 Range/Units 06:10 06:00 06:00 WBC (4.0-10.5) x10^3/uL RBC (4.1-5.4) x10^6/uL Hgb (12.0-16.0) g/dL Hct (35-47) % MCV (78-100) fL MCH (26-32) pg MCHC (32-36) g/dL RDW (11.5-14.0) % Plt Count (150-450) x10^3/uL MPV (7.5-11.0) fL Gran % (36.0-66.0) % Immature Gran % (Auto) (0.00-0.4) % Nucleat RBC Rel Count (0.00-0.1) % Eos # (Auto) (0-0.5) x10^3/uL Immature Gran # (Auto) (0.00-0.03) x10^3u/L Absolute Lymphs (auto) (1.0-4.6) x10^3/uL Absolute Monos (auto) (0.0-1.3) x10^3/uL Absolute Nucleated RBC (0.00-0.01) x10^3u/L Lymphocytes % (24.0-44.0) % Monocytes % (0.0-12.0) % Eosinophils % (0.00-5.0) % Basophils % (0.0-0.4) % Absolute Granulocytes (1.4-6.9) x10^3/uL Basophils # (0-0.4) x10^3/uL D-Dimer 0.47 (0.0-0.50) mg/L Sodium (137-145) mmol/L Potassium (3.5-5.1) mmol/L Chloride (98-107) mmol/L Carbon Dioxide (22-30) mmol/L Anion Gap (5-15) MEQ/L BUN (7-17) mg/dL Creatinine (0.52-1.04) mg/dL Estimated GFR ML/MIN Glucose (74-106) mg/dL Lactic Acid 0.8 (0.4-2.0) Calcium (8.4-10.2) mg/dL Total Bilirubin (0.2-1.3) mg/dL AST (14-36) U/L ALT (0-35) U/L Alkaline Phosphatase (38-126) U/L Troponin I < 0.012 (0.000-0.034) ng/mL NT-Pro-B Natriuret Pep (0-900) pg/mL Serum Total Protein (6.3-8.2) g/dL Albumin (3.5-5.0) g/dL 01/08/22 01/08/22 Range/Units 06:00 06:00 WBC 6.4 (4.0-10.5) x10^3/uL RBC 3.03 L (4.1-5.4) x10^6/uL Hgb 8.0 L (12.0-16.0) g/dL Hct 26.1 L (35-47) % MCV 86.1 (78-100) fL MCH 26.4 (26-32) pg MCHC 30.7 L (32-36) g/dL RDW 14.5 H (11.5-14.0) % Plt Count 300 (150-450) x10^3/uL MPV 10.5 (7.5-11.0) fL Gran % 68.8 H (36.0-66.0) % Immature Gran % (Auto) 0.2 (0.00-0.4) % Nucleat RBC Rel Count 0.0 (0.00-0.1) % Eos # (Auto) 0.21 (0-0.5) x10^3/uL Immature Gran # (Auto) 0.01 (0.00-0.03) x10^3u/L Absolute Lymphs (auto) 0.85 L (1.0-4.6) x10^3/uL Absolute Monos (auto) 0.86 (0.0-1.3) x10^3/uL Absolute Nucleated RBC 0.00 (0.00-0.01) x10^3u/L Lymphocytes % 13.2 L (24.0-44.0) % Monocytes % 13.4 H (0.0-12.0) % Eosinophils % 3.3 (0.00-5.0) % Basophils % 1.1 (0.0-0.4) % Absolute Granulocytes 4.42 (1.4-6.9) x10^3/uL Basophils # 0.07 (0-0.4) x10^3/uL D-Dimer (0.0-0.50) mg/L Sodium 135 L (137-145) mmol/L Potassium 4.0 (3.5-5.1) mmol/L Chloride 105 (98-107) mmol/L Carbon Dioxide 24 (22-30) mmol/L Anion Gap 11.1 (5-15) MEQ/L BUN 10 (7-17) mg/dL Creatinine 0.83 (0.52-1.04) mg/dL Estimated GFR > 60.0 ML/MIN Glucose 98 (74-106) mg/dL Lactic Acid (0.4-2.0) Calcium 8.2 L (8.4-10.2) mg/dL Total Bilirubin 0.10 L (0.2-1.3) mg/dL AST 31 (14-36) U/L ALT 19 (0-35) U/L Alkaline Phosphatase 144 H (38-126) U/L Troponin I (0.000-0.034) ng/mL NT-Pro-B Natriuret Pep 611 (0-900) pg/mL Serum Total Protein 5.8 L (6.3-8.2) g/dL Albumin 3.0 L (3.5-5.0) g/dL - Progress Progress: improved, re-examined Counseled pt/family regarding: lab results, diagnosis, need for follow-up, rad results <DEMETRIO VALLADARES - Last Filed: 01/08/22 06:44> <MARYCARMEN MURPHY - Last Filed: 01/08/22 07:56> - Progress Progress Note: 01/08/22 06:48 patient turned over to Dr. Murphy at change of shift after discussion of pending CTs , findings, and progress, for final disposition and treatment. (ALANIS VALLADARES) 01/08/22 07:50 Patient is checked out to me at shift change from Dr. Shell with pending CT results. Patient presented with left-sided neck pain radiating to left upper extremity and some on the left chest as well. Broad work-up was done with no ST elevation in the EKG and negative troponin/D-dimers. She has received Toradol and Norflex but still having some discomfort/pain and I have given her morphine, on reevaluation she is feeling better although pain is not completely resolved. Pain is reproducible with palpation and movements. Seems musculoskeletal and not cardiac in origin and with 1 set negative, ACS is less likely and do not need the second troponins. CT cervical spine negative with the acute fracture or subluxation. CT chest also negative, has granulomatous/calcified nodules for which patient is advised to have outpatient follow-up for repeat CTs. I will give her muscle relaxants to go home and outpatient follow-up was recommended. She has a chronic anemia and hemoglobin is stable around 8.0. Discussed signs symptoms of worsening needing return to ER which she seems understanding. Stable for discharge 01/08/22 07:54 (MARYCARMEN MURPHY) <DEMETRIO VALLADARES - Last Filed: 01/08/22 06:44> - Departure Departure Disposition: Home Critical Care Time: No <MARYCARMEN MURPHY - Last Filed: 01/08/22 07:56> - Departure Clinical Impression: Cervicalgia Condition: Stable Referrals: JUAN MONTILLA [Primary Care Provider] - Follow up/PCP as directed (1-2 days for reevaluation) Instructions: Generalized Neck Pain (DC) Additional Instructions: Take Tylenol/muscle relaxants as needed and outpatient follow-up for reevaluation. Return to ER for worsening pain, numbness tingling weakness of upper extremity are if having chest pain persistently with difficulty breathing/palpitations etc. Prescriptions: Tizanidine HCl 2 mg PO TID 15 Days #30 tablet
[2022-01-08] MEDS ORDERED: Sodium Chloride 0.9% 1000 ML 1,000 ML IV SCH (05:45)
[2022-01-08] MEDS ORDERED: TORAdol 30 mg Injection ONE (05:50)
[2022-01-08] MEDS ORDERED: Norflex 60 MG/2 ML ONE (05:50)
[2022-01-08] MEDS ORDERED: Sodium Chloride 0.9% 1000 ML 1,000 ML ONE (05:50)
[2022-01-08 06:30] LABS: Absolute Neutrophil Ct (ANC) 4.42 x10^3/uL (1.4-6.9); Basophil (Absolute #) 0.07 x10^3/uL (0-0.4); Eosinophil % 3.3 % (0.00-5.0); Eosinophil (Absolute #) 0.21 x10^3/uL (0-0.5); Hematocrit 26.1 % (35-47); Lymphocyte (Absolute #) 0.85 x10^3/uL (1.0-4.6); Lymphocytes % 13.2 % (24.0-44.0); Mean Cell Volume 86.1 fL (78-100); Mean Corpuscular Hemoglobin 26.4 pg (26-32); Mean Corpuscular Hgb Concent. 30.7 g/dL (32-36); Mean Platelet Volume 10.5 fL (7.5-11.0); Monocyte (Absolute #) 0.86 x10^3/uL (0.0-1.3); Monocytes % 13.4 % (0.0-12.0); Neutrophil % 68.8 % (36.0-66.0); Platelet Count 300 x10^3/uL (150-450); Red Blood Count 3.03 x10^6/uL (4.1-5.4); Red Cell Distribution Width 14.5 % (11.5-14.0); White Blood Count 6.4 x10^3/uL (4.0-10.5)
[2022-01-08 06:40] LABS: ALKALINE PHOSPHATASE 144 U/L (38-126); ANION GAP 11.1 MEQ/L (5-15); BLOOD UREA NITROGEN 10 mg/dL (7-17); CHLORIDE 105 mmol/L (98-107); Calcium 8.2 mg/dL (8.4-10.2); Carbon Dioxide 24 mmol/L (22-30); Creatinine 1 0.83 mg/dL (0.52-1.04); EST GLOMERULAR FILTRATION RATE > 60.0 ML/MIN; Glucose 98 mg/dL (74-106); NT PRO BNP 611 pg/mL (0-900); SGOT/AST 31 U/L (14-36); SGPT/ALT 19 U/L (0-35); SODIUM 135 mmol/L (137-145); Total Protein 5.8 g/dL (6.3-8.2)
[2022-01-08] MEDS ORDERED: MORPHINE SULFATE 4 MG INJ ONE (07:15)
[2022-01-08] MEDS ORDERED: MORPHINE SULFATE 4 MG INJ IV ONE (07:38)
[2022-01-08 08:01] VITALS: BP 140/80; PULSE 80; O2SAT 98
--- NOTE | 2022-01-08 10:03 | XRAY ---
Indication: Cervical radicular pain 2 days. No known injury. Multiple contiguous axial images obtained through the cervical spine. Sagittal and coronal reformatted images obtained. Comparison: August 14, 2008. Axial images demonstrates age-related osteopenia. Progressive worsening mild/moderate C5-C7 degenerative endplate spurring and left C2 C5 degenerative facet hypertrophy. No acute fracture, suspicious bony lesions, or spinal canal stenosis. Sagittal and coronal reformatted images again demonstrate normal cervical alignment with progressive worsening C5-C7 disc space loss. New minimal 2 mm C3 degenerative anterolisthesis. No acute compression fracture or jumped facet. Normal-appearing craniocervical junction. Visualized noncontrasted soft tissues including base of brain are unremarkable. CT chest reported separately. Impression: 1. Osteopenia with progressive worsening multilevel degenerative spondylosis and new minimal grade 1 C3 spondylolisthesis. 2. Remaining CT cervical spine is negative. Comment: Preliminary interpretation made by [facility]. No critical discrepancy.
--- NOTE | 2022-01-08 10:07 | XRAY ---
Indication: Chest, neck, and left shoulder pain. No known injury. Multiple contiguous axial images obtained through the chest without contrast. Comparison: None Lungs are inflated with small left lower lobe calcified granuloma and minimal bibasilar fibrosis/scarring. Right upper lobe demonstrates subsegmental focus of faint round glass nodular opacity. No suspicious pulmonary mass, infiltrate, or effusion. Heart not enlarged. Aorta is normal in course and caliber. Small left hilar calcified nodes. No pathologic mediastinal lymphadenopathy. Bony thorax intact with mild osteopenia, mild degenerative changes throughout the spine, and old right 10 rib fracture. Limited upper abdomen demonstrates bariatric surgery and tiny hepatic/splenic calcified granulomas. Impression: 1. Right upper lobe subcentimeter groundglass nodular opacity. Recommend follow-up per Fleischner guidelines. 2. Bibasilar fibrosis/scarring, chronic bony findings, and old granulomatous disease. 3. Remaining CT chest without contrast exam is negative. Comment: Preliminary interpretation made by C. No critical discrepancy.
== END 2022-01-08 08:15 | disposition home or self-care (01) ==
LOC: ED 04:53
DX: M54.2 Cervicalgia (principal); I10 Essential (primary) hypertension; Z79.899 Other long term (current) drug therapy; Z86.16 Personal history of COVID-19; Z28.310 Unvaccinated for COVID-19
CPT/HCPCS: 36000; 36415; 71250; 72125; 80053; 83605; 83880; 84484; 85025; 85379; 93005; 94760; 96372; 96374; 96375; 99284; J1885; J2270; J2360

== ENCOUNTER 2022-07-17 17:30 | Emergency (ER) | payer MEDICARE ==
--- NOTE | 2022-07-17 17:49 | ERPHSYRPT ---
- History of Present Illness Source: patient Exam Limitations: no limitations Timing/Duration: day(s) (4), worse (Symptoms worsen last 2 days) Cough Quality/Degree: mild, dry cough Possible Cause: no prior episodes Modifying Factors: Improves With: coughing Associated Symptoms: fever, cough, earache (Bilateral), muscle aches, No shortness of breath Hx Tetanus, Diphtheria Vaccination/Date Given: Yes Hx Influenza Vaccination/Date Given: No Hx Pneumococcal Vaccination/Date Given: Yes - History of Present Illness Time Seen by Provider: 07/17/22 17:49 Physician History: This is a 66-year-old white female has a history of seizure disorder, chronic anemia and presents with 4-day history of sore throat, cough, bilateral earaches. She did cough this morning to the point where she had some vomiting present. She presents emergency department with a fever 102 F. She has no known exposure to individuals with similar symptoms or with known viral infection. She denies chest pain. She denies abdominal pain. She has had no diarrhea symptoms. (REGINO BENNETT) Allergies/Adverse Reactions: Iodinated Contrast Media [IV Dye, Iodine Containing Contrast ] Allergy (Severe, Verified 07/17/22 17:52) Anaphylactic Reaction paroxetine HCl [From Paxil] Allergy (Severe, Verified 07/17/22 17:52) Vomiting Causes nervousness and severe vomiting codeine Allergy (Mild, Verified 07/17/22 17:52) Rash prednisone Allergy (Mild, Verified 07/17/22 17:52) Rash Sulfa (Sulfonamide Antibiotics) [Sulfa(Sulfonamide Antibiotics)] Allergy (Mild, Verified 07/17/22 17:52) Rash fentanyl Adverse Reaction (Verified 07/17/22 17:52) could not move Home Medications: Amitriptyline HCl 10 mg [Elavil 10 mg] 200 mg PO HS 02/20/14 [History] Levothyroxine Sodium 25 Mcg [Synthroid 25 Mcg] 50 mcg PO DAILY 02/20/14 [History] lamoTRIgine [Lamictal] 100 mg PO HS 06/07/17 [History] Gabapentin 800 mg PO TID 06/08/19 [History] Phenytoin Sod Extended 100 mg* [Dilantin 100 MG] 100 mg PO TID 07/28/20 [History] Omeprazole 40 mg PO BID 07/03/21 [History] Sucralfate 1 gm [Carafate 1 GM] 1 g PO ACHS 07/03/21 [History] Famotidine 20 mg [Pepcid 20 MG] 40 mg PO HS 09/20/21 [History] Ferrous Sulfate 325 mg [Feosol 325 mg] 1 ea PO DAILY 09/20/21 [History] Loratadine 10 mg [Claritin 10 mg] 10 mg PO DAILY PRN PRN 09/20/21 [History] Metoprolol Succinate 25 mg Xl* [Toprol-Xl 25MG Tablets] 25 mg PO DAILY 09/20/21 [History] Phenytoin Sod Extended 100 mg* [Dilantin 100 MG] 100 mg PO DAILY PRN PRN 09/20/21 [History] Travel Risk - International Travel Have you traveled outside of the country in past 3 weeks: No - Coronavirus Screening Are you exhibiting any of the following symptoms?: Yes Symptoms: Fever, Cough: New Onset, Headaches/Body Aches/Fatigue Close contact with a COVID-19 positive Pt in past 14-21 Days: No - Vaccine Status Have you recieved a Covid-19 vaccination: No - Vaccination Dates Comment: Has not had sense of taste or smell for over a year since she had COVID - Review of Systems Constitutional: Fever Eyes: No Symptoms Ears, Nose, & Throat: Ear Pain (Bilateral), Throat Pain, No Ear Discharge, No Hearing Changes Respiratory: Cough Cardiac: No Symptoms Abdominal/Gastrointestinal: No Symptoms, Appetite Changes Genitourinary Symptoms: No Symptoms Musculoskeletal: Arthralgias, Myalgias Skin: No Symptoms Neurological: No Symptoms Psychological: No Symptoms Endocrine: No Symptoms Hematologic/Lymphatic: No Symptoms Immunological/Allergic: No Symptoms All Other Systems: Reviewed and Negative - Past Medical History Pertinent Past Medical History: Yes Neurological History: Epilepsy, Migraines ENT History: No Pertinent History Cardiac History: Hypertension Respiratory History: No Pertinent History Endocrine Medical History: Hypothyroidism Musculoskeletal History: Osteoarthritis GI Medical History: Ulcer History: No Pertinent History Psycho-Social History: No Pertinent History Female Reproductive Disorders: No Pertinent History Other Medical History: back problems. anemia - Past Surgical History Past Surgical History: Yes Neuro Surgical History: No Pertinent History Cardiac: No Pertinent History Respiratory: No Pertinent History Gastrointestinal: Appendectomy Genitourinary: No Pertinent History Musculoskeletal: Orthopedic Surgery Female Surgical History: Section, Hysterectomy Other Surgical History: MULTIPLE BACK SURGERIES, x2, ulcers removed - Social History Smoking Status: Never smoker Exposure to second hand smoke: Yes Drug Use: none Patient Lives Alone: No Significant Family History: no pertinent family hx - Physical Exam General Appearance: no apparent distress, alert, thin Eye Exam: PERRL/EOMI, eyes nml inspection Ears, Nose, Throat Exam: normal ENT inspection, TMs normal, pharynx normal, mois t mucous membranes Neck Exam: normal inspection, non-tender, supple, full range of motion Respiratory Exam: normal breath sounds, lungs clear, airway intact, No chest tenderness, No respiratory distress Cardiovascular Exam: regular rate/rhythm, normal heart sounds, normal peripheral pulses Gastrointestinal/Abdomen Exam: soft, normal bowel sounds, No tenderness Pelvic Exam: not done Rectal Exam: not done Back Exam: normal inspection, normal range of motion, No CVA tenderness, No vertebral tenderness Extremity Exam: normal inspection, normal range of motion, pelvis stable Neurologic Exam: alert, oriented x 3, cooperative, special events manager II-XII nml as tested, normal mood/affect, nml cerebellar function, nml station & gait, sensation nml Skin Exam: normal color, warm, dry Lymphatic Exam: No adenopathy SpO2: 97 O2 Delivery: Room Air - Nursing Vital Signs Nursing Vital Signs: Initial Vital Signs Temperature 102.1 F 07/17/22 17:47 Pulse Rate 88 07/17/22 17:47 Respiratory Rate 18 07/17/22 17:47 Blood Pressure 136/81 07/17/22 17:47 O2 Sat by Pulse Oximetry 97 07/17/22 17:47 Pain Scale Pain Intensity 3 Ordered Tests: Active Orders 24 hr Category Date Time Status CHEST 1 VIEW (PORTABLE) Stat Exams 07/17/22 18:04 Taken Medication Summary Discontinued Medications Generic Name Dose Route Start Last Admin Trade Name Freq PRN Reason Stop Dose Admin Acetaminophen 650 mg 07/17/22 19:07 07/17/22 19:13 Acetaminophen 325 Mg Tablet PO 07/17/22 19:08 650 mg STAT STA Administration Acetaminophen Confirm 07/17/22 19:09 Acetaminophen 325 Mg Tablet Administered 07/17/22 19:10 Dose 650 mg .ROUTE .STK-MED ONE Ibuprofen 600 mg 07/17/22 19:07 07/17/22 19:13 Ibuprofen 600 Mg Tablet PO 07/17/22 19:08 600 mg STAT ONE Administration Ibuprofen Confirm 07/17/22 19:09 Ibuprofen 600 Mg Tablet Administered 07/17/22 19:10 Dose 600 mg .ROUTE .STK-MED ONE Lab/Rad Data: Laboratory Results 07/17/22 Range/Units 18:10 Influenza Type A Ag POSITIVE (NEGATIVE) Influenza Type B Ag NEGATIVE (NEGATIVE) RSV (PCR) NEGATIVE (Negative) SARS-CoV-2 (PCR) NEGATIVE (NEGATIVE) Group A Strep Antibody NOT DETECTED (NEGATIVE) - Progress Progress: improved Air Movement: good Counseled pt/family regarding: lab results, diagnosis, rad results - Progress Progress Note: 07/17/22 18:42 Chest x-ray shows no acute cardiopulmonary process. 07/17/22 18:43 Patient states that she has taken hydrocodone in the past without any difficulties or problems (REGINO BENNETT) Patient endorsed Dr. Villela at approximately [address] Villela advised to follow-up on pending viral panel. Patient may be discharged home upon completion of viral panel. Viral and strep completed. Patient is influenza A positive. Patient feels well. Patient requesting discharge. Vital stable. Patient voices no other complaints or concerns at this time. Portions of this note were created with voice recognition technology. There may be grammatical, spelling, punctuation or sound alike errors 07/17/22 20:21 (AGUSTIN VILLELA) - Departure Departure Disposition: Home Critical Care Time: No - Departure Clinical Impression: Cough, Fever, Earache symptoms in both ears, Influenza A Condition: Stable Referrals: NOEMI MARS MD [Primary Care Provider] - Follow up/PCP as directed Additional Instructions: Drink plenty of fluids. Take your medication as prescribed. Follow-up with your primary care provider for further evaluation management
[2022-07-17 18:34] VITALS: BP 149/83
[2022-07-17 18:41] LABS: Group A Strep NOT DETECTED (NEGATIVE)
[2022-07-17 18:54] LABS: INFLUENZA B NEGATIVE (NEGATIVE); RESPIRATORY SYNCTIAL VIRUS NEGATIVE (Negative); SARS-CoV-2 Xpert Express NEGATIVE (NEGATIVE)
[2022-07-17] MEDS ORDERED: MOTRIN 600 MG PO ONE (19:07)
[2022-07-17] MEDS ORDERED: TYLENOL 325 MG PO STA (19:07)
[2022-07-17] MEDS ORDERED: MOTRIN 600 MG ONE (19:09)
[2022-07-17] MEDS ORDERED: TYLENOL 325 MG ONE (19:09)
[2022-07-17 19:28] LABS: INFLUENZA A POSITIVE (NEGATIVE)
[2022-07-17 20:37] VITALS: PULSE 86; O2SAT 98
--- NOTE | 2022-07-18 08:33 | XRAY ---
Indication: Fever and cough. Flu symptoms. Comparison: September 20, 2021 Portable chest again demonstrates normal heart and lungs with incidental perihilar calcified nodes. Bony thorax intact again with old right humeral head fracture. No new/acute findings.
== END 2022-07-17 20:37 | disposition home or self-care (01) ==
LOC: ED 17:30
DX: J10.1 Influenza due to other identified influenza virus with other respiratory manifestations (principal); R05.1 Acute cough; R50.9 Fever, unspecified; H92.03 Otalgia, bilateral; I10 Essential (primary) hypertension; Z79.899 Other long term (current) drug therapy; Z28.310 Unvaccinated for COVID-19; Z86.16 Personal history of COVID-19
CPT/HCPCS: 0241U; 71045; 87651; 99283; A9270-GY

== ENCOUNTER 2024-01-31 14:34 | Emergency (ER) | payer MEDICARE ==
--- NOTE | 2024-01-31 14:36 | ERPHSYRPT ---
- History of Present Illness Time Seen by Provider: 01/31/24 14:36 Source: patient, family Exam Limitations: no limitations Physician History: This is a 68-year-old white female patient of Dr. Mars who was changing a shower curtain while standing on a chair. She fell backwards hitting the right occipital parietal region on the door frame. She did not lose consciousness. She has some mild discomfort in the right arm and right ribs. She is not concerned about those areas. She has a contusion/tender swelling in the area of injury. Patient is not on any anticoagulation therapy. Patient does have a history of hypothyroidism, seizure disorder, migraine headaches, hypertension, gastroesophageal reflux disease, chronic back pain and osteoarthritis. Occurred: just prior to arrival Severity: mild (To moderate) Head Injury Location: occipital (Right side), parietal (Right side) Method of Injury: fell (Door frame) Loss of Consciousness: no loss of consciousness Associated Symptoms: denies symptoms Allergies/Adverse Reactions: Iodinated Contrast Media [IV Dye, Iodine Containing Contrast ] Allergy (Severe, Verified 01/31/24 14:46) Anaphylactic Reaction paroxetine HCl [From Paxil] Allergy (Severe, Verified 01/31/24 14:46) Vomiting Causes nervousness and severe vomiting codeine Allergy (Mild, Verified 01/31/24 14:46) Rash prednisone Allergy (Mild, Verified 01/31/24 14:46) Rash Sulfa (Sulfonamide Antibiotics) [Sulfa(Sulfonamide Antibiotics)] Allergy (Mild, Verified 01/31/24 14:46) Rash fentanyl Adverse Reaction (Verified 01/31/24 14:46) could not move Home Medications: Amitriptyline HCl 10 mg [Elavil 10 mg] 200 mg PO HS 02/20/14 [History] Levothyroxine Sodium 25 Mcg [Synthroid 25 Mcg] 50 mcg PO DAILY 02/20/14 [History] lamoTRIgine [Lamictal] 100 mg PO HS 06/07/17 [History] Gabapentin 800 mg PO TID 06/08/19 [History] Phenytoin Sod Extended 100 mg* [Dilantin 100 MG] 100 mg PO TID 07/28/20 [History] Omeprazole 40 mg PO BID 07/03/21 [History] Sucralfate 1 gm [Carafate 1 GM] 1 g PO ACHS 07/03/21 [History] Famotidine 20 mg [Pepcid 20 MG] 40 mg PO HS 09/20/21 [History] Ferrous Sulfate 325 mg [Feosol 325 mg] 1 ea PO DAILY 09/20/21 [History] Loratadine 10 mg [Claritin 10 mg] 10 mg PO DAILY PRN PRN 09/20/21 [History] Metoprolol Succinate 25 mg Xl* [Toprol-Xl 25MG Tablets] 25 mg PO DAILY 09/20/21 [History] Phenytoin Sod Extended 100 mg* [Dilantin 100 MG] 100 mg PO DAILY PRN PRN 09/20/21 [History] Loratadine 10 mg [Claritin 10 mg] 10 mg PO DAILY 01/31/24 [History] Hx Tetanus, Diphtheria Vaccination/Date Given: Yes Hx Influenza Vaccination/Date Given: No Hx Pneumococcal Vaccination/Date Given: Yes Travel Risk - International Travel Have you traveled outside of the country in past 3 weeks: No - Emerging Infectious Disease Are you exhibiting symptoms associated with any current EIDs: No - Review of Systems Constitutional: No Symptoms Eyes: No Symptoms Ears, Nose, & Throat: No Symptoms Respiratory: No Symptoms Cardiac: No Symptoms Abdominal/Gastrointestinal: No Symptoms Musculoskeletal: Fall Skin: No Symptoms Neurological: Headache (Right side of head posteriorly) Psychological: No Symptoms Endocrine: No Symptoms Hematologic/Lymphatic: No Symptoms Immunological/Allergic: No Symptoms All Other Systems: Reviewed and Negative - Past Medical History Pertinent Past Medical History: Yes Neurological History: Epilepsy, Migraines ENT History: No Pertinent History Cardiac History: Hypertension Respiratory History: No Pertinent History Endocrine Medical History: Hypothyroidism Musculoskeletal History: Osteoarthritis GI Medical History: Ulcer History: No Pertinent History Psycho-Social History: No Pertinent History Female Reproductive Disorders: No Pertinent History Other Medical History: back problems. anemia - Past Surgical History Past Surgical History: Yes Neuro Surgical History: No Pertinent History Cardiac: No Pertinent History Respiratory: No Pertinent History Gastrointestinal: Appendectomy Genitourinary: No Pertinent History Musculoskeletal: Orthopedic Surgery Female Surgical History: Section, Hysterectomy Other Surgical History: MULTIPLE BACK SURGERIES, x2, ulcers removed Significant Family History: no pertinent family hx - Social History Smoking Status: Never smoker Exposure to second hand smoke: Yes Drug Use: none Patient Lives Alone: No - Nursing Vital Signs Nursing Vital Signs: Initial Vital Signs Temperature 97.0 F 01/31/24 14:48 Pulse Rate 86 01/31/24 14:48 Respiratory Rate 18 01/31/24 14:48 Blood Pressure 171/87 01/31/24 14:48 O2 Sat by Pulse Oximetry 95 01/31/24 14:48 Pain Scale Pain Intensity 8 - [place] Coma Score Best Eye Response (Samantha): (4) open spontaneously Best Verbal Response (Samantha): (5) oriented Best Motor Response ([place]): (6) obeys commands Samantha Total: 15 - Physical Exam General Appearance: no apparent distress, alert, anxiety Head Injury: swelling (Right occipitalparietal region), tenderness (Right occipitalparietal region) ENT Exam: airway nml, nml ext.inspection, No evidence of ENT injury, No dental injury Neck Exam: supple, trachea midline, full range of motion, normal alignment Cardiovascular/Respiratory Exam: chest non-tender Gastrointestinal/Abdominal Exam: non tender Pelvic Exam: not done Rectal Exam: not done Back Exam: normal inspection, normal range of motion, No CVA tenderness, No vertebral tenderness Extremity Exam: non-tender Mental Status Exam: alert, oriented x 3, cooperative patch washer Exam: normal hearing, normal speech, PERRL Coordination/Gait Exam: normal gait, normal cerebellar function Motor/Sensory Exam: no motor deficit, no sensory deficit Skin Exam: normal color, warm, dry Lymphatic Exam: No adenopathy SpO2 Interpretation: normal - Course Nursing assessment & vital signs reviewed: Yes Ordered Tests: Active Orders 24 hr Category Date Time Status HEAD WITHOUT CONTRAST [CT] Stat Exams 01/31/24 15:19 Completed Medication Summary Discontinued Medications Generic Name Dose Route Start Last Admin Trade Name John PRN Reason Stop Dose Admin Acetaminophen 650 mg 01/31/24 15:19 01/31/24 15:40 Acetaminophen 325 Mg Tablet PO 01/31/24 15:20 650 mg STAT ONE Administration Acetaminophen Confirm 01/31/24 15:39 Acetaminophen 325 Mg Tablet Administered 01/31/24 15:40 Dose 650 mg .ROUTE .STK-MED ONE - Progress Progress: pain not gone completely Progress Note: 01/31/24 15:40 My medical decision making and the assignment of low complexity of this patient's medical issue today is based on review of the patient's past medical history, review patient's medication list, review of patient drug allergy list, history present illness and physical findings on examination. The workup in this patient includes a CT scan of the head without contrast and we will provide the patient with 650 mg orally of nonnarcotic/nonsedating Tylenol medication to help control her pain The differential diagnosis includes but is not limited to acute intracranial abnormality, skull fracture, scalp contusion. 01/31/24 16:[address] scan of the head without contrast was interpreted by the radiologist and I reviewed the impression. The impression states nonacute senile brain. Counseled pt/family regarding: diagnosis, need for follow-up, rad results Medical Desision Making - Diagnostic Testing Diagnostic test were ordered, analyzed, and reviewed by me: Yes Radiological Interpretation: Reviewed by me, Teleradiologist Report - Risk of complications Low Risk: Low risk of morbidity from additional dx testing or treatment - Departure Departure Disposition: Home Clinical Impression: Head injury due to trauma Condition: Stable Critical Care Time: No Referrals: NOEMI MARS MD [Primary Care Provider] - Follow up/PCP as directed Additional Instructions: Ice pack to area of tenderness and swelling 3 times a day for the next 48 hours. May use Tylenol and ibuprofen for pain control if there are no contraindications. Do not take any sedating medication. Return to the emergency department if there is an increase in your pain or there is a change in the mental status. Take your other medications as prescribed.
[2024-01-31 14:49] VITALS: RESP 18; TEMP 97
[2024-01-31] MEDS ORDERED: TYLENOL 325 MG ONE (15:39)
[2024-01-31] MEDS: TYLENOL 325 MG PO ONE (15:40)
--- NOTE | 2024-01-31 16:17 | XRAY ---
Indication: Status post fall. Right parietal-occipital injury. Multiple contiguous axial images obtained through the head without contrast. Comparison: July 30, 2020 New small right posterior parietal scalp soft tissue swelling near the vertex. Again age-appropriate global atrophy and moderate periventricular degenerative micro-ischemia bilaterally. No acute intracranial hemorrhage, abnormal extra-axial fluid collection, or mass effect. Fourth ventricle is midline without hydrocephalus. Bony calvarium intact. Visualized paranasal sinuses and mastoid air cells are clear. Impression: Again nonacute senile brain.
[2024-01-31 16:35] VITALS: BP 92/71; PULSE 80; O2SAT 96
== END 2024-01-31 16:35 | disposition home or self-care (01) ==
LOC: ED 14:34
DX: S09.90XA Unspecified injury of head, initial encounter (principal); W07.XXXA Fall from chair, initial encounter; Y93.E9 Activity, other interior property and clothing maintenance; Y92.002 Bathroom of unspecified non-institutional (private) residence as the place of occurrence of the external cause; I10 Essential (primary) hypertension; Z79.899 Other long term (current) drug therapy
CPT/HCPCS: 70450; 99283; A9270-GY